=== PATIENT | male | born 1965 | race Caucasian/White ===

== ENCOUNTER 2018-02-08 02:09 | Emergency (ER) | payer OTHER ==
[2018-02-08 02:17] VITALS: TEMP 98.1
--- NOTE | 2018-02-08 02:22 | ED ---
General Adult HPI - General Chief complaint: Recheck/Abnormal Lab/Rx Stated complaint: Weakness Time Seen by Provider: 02/08/18 02:19 Source: patient, EMS Mode of arrival: EMS Limitations: no limitations - History of Present Illness Initial comments: Kush Sol is a 52-year-old male with a past medical history most significant for polycystic kidney disease for which she has been on hemodialysis for a little over a year and a half. Patient reports that he recently moved to this area and has started dialysis at a new dialysis center on the of this month. Patient reports that after each of his dialysis sessions he has felt very weak, he states that after dialysis on of last week he became very weak and his took him to an outside hospital where he was noted to be profoundly hypokalemic with a potassium of only 2.2. He was placed in their observation unit and given IV potassium throughout the night. He was evaluated by a stonework supervisor who he was told conferred with his stonework supervisor Dr. Michaud and the patient was visibly discharged home. Patient reports that he was in his usual state of health prior to dialysis today. He is feeling quite well, he drove himself to dialysis. He reports he spoke with his stonework supervisor at dialysis. She reports that immediately after dialysis he felt much weaker and quite unwell, he had some reservations about driving home due to his generalized weakness but was able to drive home and rest. He woke during the night tonight to get a drink of water and reports that he felt so weak that he had to sit down on his couch. His daughter came to check on him and he advised her that he felt too weak to walk back to the bedroom at which time EMS was contacted for transport to the hospital. The patient denies any chest pain, palpitations, shortness of breath. He reports a generalized tingling and weakness throughout his body. The patient reports that for the past one year he has been doing dialysis in [place] where he was living. He states that he never had any complications with dialysis, never had to be evaluated in the hospital. He does note that in [place] they used much slower flow rates during dialysis and he thinks that that may have contributed to him doing better. - Related Data Allergies Allergy/AdvReac Type Severity Reaction Status Date / Time No Known Allergies Allergy Verified 02/08/18 02:17 Review of Systems ROS Statement: Those systems with pertinent positive or pertinent negative responses have been documented in the HPI. ROS Other: All systems not noted in ROS Statement are negative. Past Medical History Past Medical History: Renal Disease History of Any Multi-Drug Resistant Organisms: None Reported Additional Past Surgical History / Comment(s): AV fistula left arm. bilateral shoulders. right heel. lasik eye surgery. Past Psychological History: No Psychological Hx Reported Smoking Status: Former smoker Past Alcohol Use History: Rare Past Drug Use History: Marijuana General Exam Limitations: no limitations General appearance: alert, in no apparent distress Head exam: Present: atraumatic, normocephalic Eye exam: Present: normal appearance, PERRL ENT exam: Present: normal exam Neck exam: Present: normal inspection Respiratory exam: Present: normal lung sounds bilaterally. Absent: respiratory distress Cardiovascular Exam: Present: regular rate, normal rhythm, other (Dialysis access in left forearm) GI/Abdominal exam: Present: soft. Absent: distended Rectal exam: Present: deferred Extremities exam: Present: full ROM Neurological exam: Present: alert, oriented X3 Psychiatric exam: Present: normal affect, normal mood Skin exam: Present: warm, dry, pallor Course Vital Signs 02/08/18 02/08/18 02/08/18 02:13 03:50 06:51 Temperature 98.1 F Pulse Rate 77 73 60 Respiratory 20 20 16 Rate Blood Pressure 143/73 126/70 134/81 O2 Sat by Pulse 98 98 Oximetry - Reevaluation(s) Reevaluation #1: The patient care was discussed with the patients stonework supervisor Dr. Lazo who agrees with plan to replace potassium with IV and PO potassium - recommends no Calcium at this time. The patient is updated on plan 02/08/18 04:14 EKG Findings - EKG Comments: EKG Findings:: EKG obtained at 2:16 AM, rate is 75, rhythm sinus, there is normal axis, normal intervals, WI 204, QRS 92, QTc 475, there no acute ST elevations or depressions. There is no acute T-wave abnormalities indicative of severe hypo-or hyperkalemia. Medical Decision Making - Medical Decision Making The patient was seen and evaluated, history was obtained from the patient Patient attending dialysis at a new dialysis Center. On 2 events has been noted to have hypokalemia associated with generalized weakness. Feeling generalized weakness and tingling to his body today after dialysis. EKG normal sinus rhythm with no acute ST elevations or depressions. Labs were ordered Labs reveal also abnormalities no significant for hypokalemia with potassium of 3.0, hypocalcemia with an ionized calcium Patient's stonework supervisor Dr. Lazo was paged who recommends IV potassium replacement hold calcium replacement. He states he will reevaluate the patient' s electrolytes a dialysis tomorrow. Patient received 30 mEq of IV potassium with IV fluid. He reported feeling much better after infusion. All questions pertaining care were answered best my ability, I advised the patient to discuss in detail his complaints with his stonework supervisor and return to the ER if he has any further complaints. - Lab Data Result diagrams: 02/08/18 02:24 02/08/18 02:24 Lab Results 02/08/18 02/08/18 02/08/18 Range/Units 02:24 02:24 02:45 WBC 3.9 (3.8-10.6) k/uL RBC 3.01 L (4.30-5.90) m/uL Hgb 9.9 L (13.0-17.5) gm/dL Hct 28.2 L (39.0-53.0) % MCV 93.7 (80.0-100.0) fL MCH 33.0 (25.0-35.0) pg MCHC 35.2 (31.0-37.0) g/dL RDW 13.2 (11.5-15.5) % Plt Count 139 L (150-450) k/uL Neutrophils % 71 % Lymphocytes % 14 % Monocytes % 8 % Eosinophils % 4 % Basophils % 0 % Neutrophils # 2.8 (1.3-7.7) k/uL Lymphocytes # 0.6 L (1.0-4.8) k/uL Monocytes # 0.3 (0-1.0) k/uL Eosinophils # 0.2 (0-0.7) k/uL Basophils # 0.0 (0-0.2) k/uL Sodium 135 L (137-145) mmol/L Potassium 3.0 L* (3.5-5.1) mmol/L Chloride 96 L (98-107) mmol/L Carbon Dioxide 27 (22-30) mmol/L Anion Gap 12 mmol/L BUN 32 H (9-20) mg/dL Creatinine 6.49 H* (0.66-1.25) mg/dL Est GFR (CKD-EPI)AfAm 10 (>60 ml/min/1.73 sqM) Est GFR (CKD-EPI)NonAf 9 (>60 ml/min/1.73 sqM) Glucose 108 H (74-99) mg/dL Calcium 8.5 (8.4-10.2) mg/dL Ionized Calcium Edwin 4.3 L (4.5-5.3) mg/dL Magnesium 1.7 (1.6-2.3) mg/dL Total Bilirubin 0.3 (0.2-1.3) mg/dL AST 22 (17-59) U/L ALT 28 (21-72) U/L Alkaline Phosphatase 53 (38-126) U/L Total Protein 5.9 L (6.3-8.2) g/dL Albumin 3.8 (3.5-5.0) g/dL Urine Color Colorless Urine Appearance Clear (Clear) Urine pH 8.5 H (5.0-8.0) Ur Specific [place] 1.002 (1.001-1.035) Urine Protein 1+ H (Negative) Urine Glucose (UA) 1+ H (Negative) Urine Ketones Negative (Negative) Urine Blood Small H (Negative) Urine Nitrite Negative (Negative) Urine Bilirubin Negative (Negative) Urine Urobilinogen <2.0 (<2.0) mg/dL Ur Leukocyte Esterase Negative (Negative) Urine RBC <1 (0-5) /hpf Urine WBC 1 (0-5) /hpf Disposition Clinical Impression: Hypokalemia Disposition: HOME SELF-CARE Condition: Good Instructions: Hypokalemia (ED) Is patient prescribed a controlled substance at d/c from ED?: No Referrals: None,Stated [Primary Care Provider] - 1-2 days Time of Disposition: 06:52
[2018-02-08 02:55] LABS: Basophils % (A) 0 %; Eosinophils # (A) 0.2 k/uL (0-0.7); Eosinophils % (A) 4 %; HCT 28.2 % (39.0-53.0); HGB 9.9 gm/dL (13.0-17.5); Lymphocytes # (A) 0.6 k/uL (1.0-4.8); Lymphocytes % (A) 14 %; MCHC 35.2 g/dL (31.0-37.0); MCV 93.7 fL (80.0-100.0); Mean Platelet Volume 6.8; Monocytes # (A) 0.3 k/uL (0-1.0); Monocytes % (A) 8 %; Neutrophils # (A) 2.8 k/uL (1.3-7.7); Neutrophils % (A) 71 %; Platelet Count 139 k/uL (150-450); RBC 3.01 m/uL (4.30-5.90); RDW 13.2 % (11.5-15.5); WBC 3.9 k/uL (3.8-10.6)
[2018-02-08 02:58] LABS: Appearance,Urine Clear (Clear); Bilirubin,Urine Negative (Negative); Blood,Urine Small (Negative); Color,Urine Colorless; Glucose,Urine (UA) 1+ (Negative); Ketones,Urine Negative (Negative); Leukocyte Esterase,Urine Negative (Negative); Nitrite,Urine Negative (Negative); PH, Urine 8.5 (5.0-8.0); Protein,Urine 1+ (Negative); RBC,Urine <1 /hpf (0-5); Specific Gravity,Urine 1.002 (1.001-1.035); Urobilinogen,Urine <2.0 mg/dL (<2.0); WBC,Urine 1 /hpf (0-5)
[2018-02-08 03:01] LABS: Ionized Calcium 4.3 mg/dL (4.5-5.3)
[2018-02-08 03:12] LABS: Albumin 3.8 g/dL (3.5-5.0); Calcium 8.5 mg/dL (8.4-10.2); Magnesium 1.7 mg/dL (1.6-2.3); Total Bilirubin 0.3 mg/dL (0.2-1.3); Total Protein 5.9 g/dL (6.3-8.2)
[2018-02-08] MEDS ORDERED: SODIUM CHLORIDE 0.9% 1,000 ML IV SCH (03:30)
[2018-02-08] MEDS: POTASSIUM CHLORIDE 10 MEQ in WATER FOR INJECTION 1 100ML.BAG IVPB SCH ×3 (03:46→05:49)
[2018-02-08 06:52] VITALS: BP 134/81; PULSE 60; RESP 16
== END 2018-02-08 06:58 | disposition home or self-care (01) ==
LOC: EC 02:09
DX: E87.6 Hypokalemia (principal); Z87.891 Personal history of nicotine dependence; Z99.2 Dependence on renal dialysis
CPT/HCPCS: 36415; 93005; 80053; 82330; 83735; 85025; 81001; 99285; 96365; 96366 ×2; J3480

== ENCOUNTER 2020-05-28 08:25 | Day surgery (SDC) | payer OTHER ==
[2020-05-14 15:44] VITALS: BMI 29.0
[~2020-05-28 08:25] MED LIST: LACTATED RINGERS 1,000 ML IV SCH
[2020-05-28 09:31] VITALS: TEMP 97.4
[2020-05-28] MEDS ORDERED: SODIUM CHLORIDE 0.9% 500 ML 500 ML IV ONE (09:47)
[2020-05-28] MEDS ORDERED: PROPOFOL 10 MG/ML 20 ML VIAL IV ONE (10:27)
[2020-05-28 11:22] VITALS: RESP 16
[2020-05-28 11:33] VITALS: BP 110/70; PULSE 72
--- NOTE | 2020-05-28 11:51 | P.PCN ---
Date of Procedure: 05/28/20 Description of Procedure: Brief history: Patient is a pleasant 54-year-old male presenting for outpatient EGD and colonoscopy for evaluation of GERD and and personal history of colon polyps. Denies any change in bowel habits or blood per rectum. No family history of colon cancer. He reports prior colonoscopy 5 years ago with polypectomy. He was previously taking Nexium in the remote past. He does have issues with bringing up phlegm which she is concerned is secondary to reflux. Procedure performed: Esophagogastroduodenoscopy with biopsy Colonoscopy Estimated blood loss: Minimal. Preoperative diagnosis: GERD, history of colon polyps, last colonoscopy 5 years ago Anesthesia: [facility] Procedure: After informed consent was obtained from the patient was brought into the endoscopy unit and IV sedation was administered by anesthesia under continuous monitoring. Initially upper endoscopy was done. The Olympus GF 190 video endoscope was inserted into the mouth and esophagus intubated without any difficulty and was gradually advanced into the stomach and duodenum and carefully examined. The bulb and second part of the duodenum appeared normal, with biopsies taken to rule out celiac sprue. The scope was then withdrawn into the stomach adequately insufflated with air and upon careful examination the antrum and body, cardia and fundus appeared normal, except for some mild punctate erythema in the antrum and body suggestive of mild gastritis with biopsies taken. A diminutive polyp in the gastric body measuring 2 mm removed with cold forcep likely representing fundic gland polyp. The scope was then withdrawn into the esophagus. The GE junction was located at 40 cm to the incisors and biopsy. It appeared regular with no erythema erosions or ulcerations. Rest of the esophagus appeared normal. Patient tolerated the procedure well. At this time the patient continued to remain sedation. Initial digital rectal examination was normal. Olympus CF 190 video colonoscope was then inserted into the rectum and gradually advanced to the cecum without any difficulty. Careful examination was performed as the scope was gradually being withdrawn. The prep was excellent. The cecum, ascending colon, transverse colon, descending colon, sigmoid colon and rectum appeared normal. A few small diverticula noted in the sigmoid colon. Retroflexion was performed in the rectum and no lesions were noted, low-grade internal hemorrhoids. Patient tolerated the procedure well. Impression: 1. Mild gastritis. Diminutive gastric polyp likely fundic gland polyp. Biopsies of the duodenum, antrum body, GE junction and gastric polyp. 2. Mild sigmoid diverticulosis. Otherwise normal-appearing colon from rectum to cecum. Recommendations: Findings of this examination were discussed with the patient as well as his . Okay to resume diet. Okay to resume medications. Await pathology from biopsies. Recommend a trial of OTC Nexium for 14 days. Recommendation is for repeat colonoscopy in 10 years for screening for malignant neoplasm of the colon.
== END 2020-05-28 11:50 | disposition home or self-care (01) ==
LOC: ORWHC2ENDO 08:25
PROVIDERS: ATTEND Internal Medicine
DX: Z12.11 Encounter for screening for malignant neoplasm of colon (principal); K29.50 Unspecified chronic gastritis without bleeding; K31.7 Polyp of stomach and duodenum; K20.0 Eosinophilic esophagitis; K21.9 Gastro-esophageal reflux disease without esophagitis; K57.30 Diverticulosis of large intestine without perforation or abscess without bleeding; K64.8 Other hemorrhoids; Z86.010 Personal history of colon polyps; I12.0 Hypertensive chronic kidney disease with stage 5 chronic kidney disease or end stage renal disease; N18.6 End stage renal disease; Z87.891 Personal history of nicotine dependence; Z79.890 Hormone replacement therapy; Z79.899 Other long term (current) drug therapy; Z98.890 Other specified postprocedural states
CPT/HCPCS: 43239; 88305; G0105; J2704; 45378

== ENCOUNTER 2021-02-10 07:10 | Inpatient (IN) | payer OTHER, MEDICARE ==
[2021-02-10 07:54] LABS: Basophils % (A) 0 %; Eosinophils # (A) 0.9 k/uL (0-0.7); Eosinophils % (A) 16 %; HCT 29.2 % (39.0-53.0); HGB 10.6 gm/dL (13.0-17.5); Lymphocytes # (A) 0.6 k/uL (1.0-4.8); Lymphocytes % (A) 11 %; MCH 35.5 pg (25.0-35.0); MCHC 36.4 g/dL (31.0-37.0); MCV 97.4 fL (80.0-100.0); Mean Platelet Volume 7.4; Monocytes # (A) 0.3 k/uL (0-1.0); Monocytes % (A) 6 %; Neutrophils # (A) 3.9 k/uL (1.3-7.7); Neutrophils % (A) 66 %; Platelet Count 133 k/uL (150-450); RDW 12.5 % (11.5-15.5); WBC 5.9 k/uL (3.8-10.6)
[2021-02-10 08:01] LABS: INR 0.9 (<1.2); Prothrombin Time 10.1 sec (9.0-12.0)
[2021-02-10 08:08] LABS: Albumin 3.6 g/dL (3.5-5.0); Calcium 8.6 mg/dL (8.4-10.2); Magnesium 1.4 mg/dL (1.6-2.3); Phosphorus 4.7 mg/dL (2.5-4.5); Potassium 3.9 mmol/L (3.5-5.1); Total Bilirubin 0.4 mg/dL (0.2-1.3); Total Protein 5.8 g/dL (6.3-8.2)
--- NOTE | 2021-02-10 08:15 | XR ---
EXAMINATION TYPE: XR chest 2V DATE OF EXAM: 02/10/2021 COMPARISON: NONE HISTORY: Shortness of breath TECHNIQUE: Frontal and lateral views of the chest are obtained. FINDINGS: Scattered senescent parenchymal changes noted. Hyperinflation compatible with COPD. No evidence for infiltrate. No evidence for atelectasis. Heart size is stable. Mediastinal structures are stable and grossly unremarkable. No evidence for hilar prominence. Degenerative changes dorsal spine. IMPRESSION: 1. No evidence for acute pulmonary disease.
[2021-02-10 08:32] LABS: Appearance,Urine Clear (Clear); Bilirubin,Urine Negative (Negative); Blood,Urine Small (Negative); Color,Urine Colorless; Glucose,Urine (UA) 1+ (Negative); Ketones,Urine Negative (Negative); Leukocyte Esterase,Urine Negative (Negative); Nitrite,Urine Negative (Negative); Protein,Urine 1+ (Negative); Specific Gravity,Urine 1.003 (1.001-1.035); Urobilinogen,Urine <2.0 mg/dL (<2.0); WBC,Urine 1 /hpf (0-5)
--- NOTE | 2021-02-10 08:43 | ED ---
Weakness HPI - General Chief complaint: Weakness Stated complaint: syncope, weakness Time Seen by Provider: 02/10/21 07:24 Source: patient, RN notes reviewed Mode of arrival: wheelchair Limitations: no limitations - History of Present Illness Initial comments: This is a 55-year-old male presents emergency Department chief complaint of jaundice weakness, not feeling well, dizziness. Patient states that symptoms symptoms yesterday while doing outside work. He does not initially was just from the he states symptoms have improved. He did have some nausea vomiting this morning. Patient has known renal disease in which he does peritoneal dialysis. Patient states he did do exchanges morning. Patient denies any chest pain shortness breath leg swelling or any leg pain. Patient states she's had issues like this in the past states is like lights were off. Denies fevers chills - Related Data Home Medications Medication Instructions Recorded Confirmed B Complex W-C No.20/Folic Acid 1 mg PO DAILY 05/14/20 02/10/21 [Renal Caps Softgel] Cinacalcet HCl 30 mg PO DAILY 05/14/20 02/10/21 Potassium Chloride [K-Tab ER] 20 meq PO DAILY 05/14/20 02/10/21 lisinopriL [Zestril] 5 mg PO DAILY 05/14/20 02/10/21 Cholecalciferol [Vitamin D3 (25 25 mcg PO DAILY 02/10/21 02/10/21 Mcg = 1000 Iu)] Gentamicin Sulfate [Gentamicin 1 applic TOPICAL DAILY 02/10/21 02/10/21 Sulfate 0.1% Oint.] Levofloxacin [Levaquin] 250 mg PO DAILY 02/10/21 02/10/21 Magnesium Glycinate 100mg 200 mg PO BID PRN 02/10/21 02/10/21 Velphoro 500mg 1,000 mg PO AC-TID 02/10/21 02/10/21 Velphoro 500mg 500 mg PO BID PRN 02/10/21 02/10/21 Allergies Allergy/AdvReac Type Severity Reaction Status Date / Time No Known Allergies Allergy Verified 02/10/21 07:51 Review of Systems ROS Statement: Those systems with pertinent positive or pertinent negative responses have been documented in the HPI. ROS Other: All systems not noted in ROS Statement are negative. Past Medical History Past Medical History: Renal Disease, Thyroid Disorder Additional Past Medical History / Comment(s): Dialysis, interstitial lung disease History of Any Multi-Drug Resistant Organisms: None Reported Past Surgical History: Orthopedic Surgery Additional Past Surgical History / Comment(s): AV fistula left arm. bilateral shoulders. right heel. lasik eye surgery. dialysis port abdomen, COLONOSCOPY Past Anesthesia/Blood Transfusion Reactions: No Reported Reaction Past Psychological History: No Psychological Hx Reported Smoking Status: Former smoker Past Alcohol Use History: None Reported Past Drug Use History: None Reported - Past Family History Father Family Medical History: Cancer General Exam Limitations: no limitations General appearance: alert, in no apparent distress Head exam: Present: atraumatic, normocephalic, normal inspection Eye exam: Present: normal appearance, PERRL, EOMI. Absent: scleral icterus, conjunctival injection, periorbital swelling Respiratory exam: Present: normal lung sounds bilaterally. Absent: respiratory distress, wheezes, rales, rhonchi, stridor Cardiovascular Exam: Present: regular rate, normal rhythm, normal heart sounds. Absent: systolic murmur, diastolic murmur, rubs, gallop, clicks GI/Abdominal exam: Present: soft, normal bowel sounds. Absent: distended, tenderness, guarding, rebound, rigid Back exam: Absent: CVA tenderness (R), CVA tenderness (L) Neurological exam: Present: alert Skin exam: Present: warm, dry, intact, normal color. Absent: rash Course Vital Signs 02/10/21 02/10/21 02/10/21 07:16 07:52 08:48 Temperature 98.5 F 98.7 F Pulse Rate 90 80 78 Respiratory 16 18 18 Rate Blood Pressure 164/83 139/82 123/85 O2 Sat by Pulse 100 99 100 Oximetry Medical Decision Making - Medical Decision Making 55-year-old presented for dizziness, near syncope. Patient found to have hyponatremia with sodium 126, creatinine 10.57 known renal disease on dialysis. Patient be admitted for near syncopal episode, hyponatremia for nephrology evaluation - Lab Data Result diagrams: 02/10/21 07:40 02/10/21 07:40 Lab Results 02/10/21 02/10/21 02/10/21 Range/Units 07:40 07:40 07:40 WBC 5.9 (3.8-10.6) k/uL RBC 3.00 L (4.30-5.90) m/uL Hgb 10.6 L (13.0-17.5) gm/dL Hct 29.2 L (39.0-53.0) % MCV 97.4 (80.0-100.0) fL MCH 35.5 H (25.0-35.0) pg MCHC 36.4 (31.0-37.0) g/dL RDW 12.5 (11.5-15.5) % Plt Count 133 L (150-450) k/uL MPV 7.4 Neutrophils % 66 % Lymphocytes % 11 % Monocytes % 6 % Eosinophils % 16 % Basophils % 0 % Neutrophils # 3.9 (1.3-7.7) k/uL Lymphocytes # 0.6 L (1.0-4.8) k/uL Monocytes # 0.3 (0-1.0) k/uL Eosinophils # 0.9 H (0-0.7) k/uL Basophils # 0.0 (0-0.2) k/uL PT 10.1 (9.0-12.0) sec INR 0.9 (<1.2) APTT 24.0 (22.0-30.0) sec Sodium (137-145) mmol/L Potassium (3.5-5.1) mmol/L Chloride (98-107) mmol/L Carbon Dioxide (22-30) mmol/L Anion Gap mmol/L BUN (9-20) mg/dL Creatinine (0.66-1.25) mg/dL Est GFR (CKD-EPI)AfAm (>60 ml/min/1.73 sqM) Est GFR (CKD-EPI)NonAf (>60 ml/min/1.73 sqM) Glucose (74-99) mg/dL Plasma Lactic Acid [place] (0.7-2.0) mmol/L Calcium (8.4-10.2) mg/dL Phosphorus (2.5-4.5) mg/dL Magnesium (1.6-2.3) mg/dL Total Bilirubin (0.2-1.3) mg/dL AST (17-59) U/L ALT (4-49) U/L Alkaline Phosphatase (38-126) U/L Creatine Kinase (55-170) U/L Troponin I (0.000-0.034) ng/mL Total Protein (6.3-8.2) g/dL Albumin (3.5-5.0) g/dL Urine Color Colorless Urine Appearance Clear (Clear) Urine pH 8.0 (5.0-8.0) Ur Specific [place] 1.003 (1.001-1.035) Urine Protein 1+ H (Negative) Urine Glucose (UA) 1+ H (Negative) Urine Ketones Negative (Negative) Urine Blood Small H (Negative) Urine Nitrite Negative (Negative) Urine Bilirubin Negative (Negative) Urine Urobilinogen <2.0 (<2.0) mg/dL Ur Leukocyte Esterase Negative (Negative) Urine WBC 1 (0-5) /hpf 02/10/21 02/10/21 02/10/21 Range/Units 07:40 07:40 07:40 WBC (3.8-10.6) k/uL RBC (4.30-5.90) m/uL Hgb (13.0-17.5) gm/dL Hct (39.0-53.0) % MCV (80.0-100.0) fL MCH (25.0-35.0) pg MCHC (31.0-37.0) g/dL RDW (11.5-15.5) % Plt Count (150-450) k/uL MPV Neutrophils % % Lymphocytes % % Monocytes % % Eosinophils % % Basophils % % Neutrophils # (1.3-7.7) k/uL Lymphocytes # (1.0-4.8) k/uL Monocytes # (0-1.0) k/uL Eosinophils # (0-0.7) k/uL Basophils # (0-0.2) k/uL PT (9.0-12.0) sec INR (<1.2) APTT (22.0-30.0) sec Sodium 126 L (137-145) mmol/L Potassium 3.9 (3.5-5.1) mmol/L Chloride 91 L (98-107) mmol/L Carbon Dioxide 24 (22-30) mmol/L Anion Gap 11 mmol/L BUN 49 H (9-20) mg/dL Creatinine 10.57 H* (0.66-1.25) mg/dL Est GFR (CKD-EPI)AfAm 6 (>60 ml/min/1.73 sqM) Est GFR (CKD-EPI)NonAf 5 (>60 ml/min/1.73 sqM) Glucose 103 H (74-99) mg/dL Plasma Lactic Acid [place] 1.4 (0.7-2.0) mmol/L Calcium 8.6 (8.4-10.2) mg/dL Phosphorus 4.7 H (2.5-4.5) mg/dL Magnesium 1.4 L (1.6-2.3) mg/dL Total Bilirubin 0.4 (0.2-1.3) mg/dL AST 44 (17-59) U/L ALT 32 (4-49) U/L Alkaline Phosphatase 128 H (38-126) U/L Creatine Kinase 307 H (55-170) U/L Troponin I <0.012 (0.000-0.034) ng/mL Total Protein 5.8 L (6.3-8.2) g/dL Albumin 3.6 (3.5-5.0) g/dL Urine Color Urine Appearance (Clear) Urine pH (5.0-8.0) Ur Specific [place] (1.001-1.035) Urine Protein (Negative) Urine Glucose (UA) (Negative) Urine Ketones (Negative) Urine Blood (Negative) Urine Nitrite (Negative) Urine Bilirubin (Negative) Urine Urobilinogen (<2.0) mg/dL Ur Leukocyte Esterase (Negative) Urine WBC (0-5) /hpf Disposition Clinical Impression: Hyponatremia, Near syncope, Renal failure Disposition: ADMITTED IP TO THIS HOSP Condition: Fair Referrals: Shayla Fonseca DO [Primary Care Provider] - 1-2 days
[2021-02-10] MEDS ORDERED: NALOXONE 0.4 MG/ML 1 ML VIAL IV PRN (09:30)
[2021-02-10] MEDS ORDERED: ACETAMINOPHEN TAB 325 MG TAB PO PRN (09:30)
[2021-02-10] MEDS ORDERED: MAGNESIUM GLYCINATE PO PRN (09:41)
[2021-02-10] MEDS: SODIUM CHLORIDE 0.9% 1,000 ML IV SCH (10:18)
[2021-02-10] MEDS ORDERED: DIALYSIS (PERIT 1.5%) 2,500 ML 37.5 G/2,500 ML BAG INTRAPERIT SCH (13:45)
[2021-02-10] MEDS ORDERED: Magnesium Replacement Protocol 1 EACH MISC MISCELLANE PRN (15:43)
--- NOTE | 2021-02-10 21:01 | P.HPIM ---
History of Present Illness This is a pleasant 55 years old male with past medical history of end-stage renal disease on peritoneal dialysis for times a day, hypothyroidism. Presents with generalized weakness and feeling Z for the last 2 days. 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 He reports similar symptoms last time his sodium was low also. He did already peritoneal dialysis twice earlier today. Scrubs his dizziness like presyncope but he never passed out. No spinning rooms also he is complaining of from the to diarrhea. But he attributed it to the antibiotics he was using for the last 2 weeks for possible infection around the peritoneal dialysis tube, after first week his antibiotics were switched to Levaquin which she was been taken to now. He denies smoking, alcohol or illicit drugs Review of Systems CONSTITUTIONAL: No fever, no malaise, no fatigue. HEENT: No recent visual problems or hearing problems. Denied any sore throat. CARDIOVASCULAR: No orthopnea, PND, no palpitations, no syncope. PULMONARY: No shortness of breath, no cough, no hemoptysis. GASTROINTESTINAL: no abdominal pain. Normoactive bowel sounds. NEUROLOGICAL: No headaches, no weakness, no numbness. HEMATOLOGICAL: Denies any bleeding or petechiae. GENITOURINARY: Denies any burning micturition, frequency, or urgency. MUSCULOSKELETAL/RHEUMATOLOGICAL: Denies any joint pain, swelling, or any muscle pain. ENDOCRINE: Denies any polyuria or polydipsia. Past Medical History Past Medical History: Renal Disease, Thyroid Disorder Additional Past Medical History / Comment(s): Dialysis, interstitial lung disease History of Any Multi-Drug Resistant Organisms: None Reported Past Surgical History: Orthopedic Surgery Additional Past Surgical History / Comment(s): AV fistula left arm. bilateral shoulders. right heel. lasik eye surgery. dialysis port abdomen, COLONOSCOPY Past Anesthesia/Blood Transfusion Reactions: No Reported Reaction Past Psychological History: No Psychological Hx Reported Smoking Status: Former smoker Past Alcohol Use History: None Reported Past Drug Use History: None Reported - Past Family History Father Family Medical History: Cancer Medications and Allergies Home Medications Medication Instructions Recorded Confirmed Type B Complex W-C No.20/Folic Acid 1 mg PO DAILY 05/14/20 02/10/21 History [Renal Caps Softgel] Cinacalcet HCl 30 mg PO DAILY 05/14/20 02/10/21 History Potassium Chloride [K-Tab ER] 20 meq PO DAILY 05/14/20 02/10/21 History lisinopriL [Zestril] 5 mg PO DAILY 05/14/20 02/10/21 History Cholecalciferol [Vitamin D3 (25 25 mcg PO DAILY 02/10/21 02/10/21 History Mcg = 1000 Iu)] Gentamicin Sulfate [Gentamicin 1 applic TOPICAL DAILY 02/10/21 02/10/21 History Sulfate 0.1% Oint.] Levofloxacin [Levaquin] 250 mg PO DAILY 02/10/21 02/10/21 History Magnesium Glycinate 100mg 200 mg PO BID PRN 02/10/21 02/10/21 History Velphoro 500mg 1,000 mg PO AC-TID 02/10/21 02/10/21 History Velphoro 500mg 500 mg PO BID PRN 02/10/21 02/10/21 History Allergies Allergy/AdvReac Type Severity Reaction Status Date / Time No Known Allergies Allergy Verified 02/10/21 07:51 Physical Exam Vitals: Vital Signs Temp Pulse Resp BP Pulse Ox 02/10/21 18:36 81 18 123/87 100 02/10/21 16:28 79 18 123/77 99 02/10/21 15:20 98.4 F 79 18 120/78 100 02/10/21 15:00 98.4 F 80 18 117/71 98 02/10/21 13:40 96 18 129/91 100 02/10/21 10:18 74 18 116/76 100 02/10/21 08:48 78 18 123/85 100 02/10/21 07:52 98.7 F 80 18 139/82 99 02/10/21 07:16 98.5 F 90 16 164/83 100 Intake and Output 02/10/21 02/10/21 02/10/21 06:59 14:59 22:59 Other: Weight 83.915 kg GENERAL: The patient is alert and oriented x3, not in any acute distress. Well developed, well nourished. HEENT: Pupils are round and equally reacting to light. EOMI. No scleral icterus. No conjunctival pallor. Normocephalic, atraumatic. No pharyngeal erythema. No thyromegaly. CARDIOVASCULAR: S1 and S2 present. No murmurs, rubs, or gallops. PULMONARY: Chest is clear to auscultation, no wheezing or crackles. -ABDOMEN: Soft, nontender, nondistended, normoactive bowel sounds. No palpable organomegaly. Peritoneal dialysis catheter in the right lower abdomen is in pl vivek with no surrounding cellulitis MUSCULOSKELETAL: No joint swelling or deformity. EXTREMITIES: No cyanosis, clubbing, or pedal edema. NEUROLOGICAL: Gross neurological examination did not reveal any focal deficits. SKIN: No rashes. No petechiae Results CBC & Chem 7: 02/10/21 07:40 02/10/21 07:40 Labs: Abnormal Lab Results - Last 24 Hours (Table) 02/10/21 02/10/21 02/10/21 Range/Units 07:40 07:40 07:40 RBC 3.00 L (4.30-5.90) m/uL Hgb 10.6 L (13.0-17.5) gm/dL Hct 29.2 L (39.0-53.0) % MCH 35.5 H (25.0-35.0) pg Plt Count 133 L (150-450) k/uL Lymphocytes # 0.6 L (1.0-4.8) k/uL Eosinophils # 0.9 H (0-0.7) k/uL Sodium 126 L (137-145) mmol/L Chloride 91 L (98-107) mmol/L BUN 49 H (9-20) mg/dL Creatinine 10.57 H* (0.66-1.25) mg/dL Glucose 103 H (74-99) mg/dL Phosphorus 4.7 H (2.5-4.5) mg/dL Magnesium 1.4 L (1.6-2.3) mg/dL Alkaline Phosphatase 128 H (38-126) U/L Creatine Kinase 307 H (55-170) U/L Total Protein 5.8 L (6.3-8.2) g/dL Urine Protein 1+ H (Negative) Urine Glucose (UA) 1+ H (Negative) Urine Blood Small H (Negative) Assessment and Plan Assessment: Dizziness and presyncope Mild to moderate hypovolemic hyponatremia Gastroenteritis with mild diarrhea and vomiting Recently treated for abdominal wall cellulitis around his dialysis tube, resolved End-stage renal disease on peritoneal dialysis Plan: This is a pleasant 55 years old male who presents with presyncope with hyponatremia, most likely secondary to dehydration from working in hot weather and secondary to gastroenteritis. 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 diff Labs and medication were reviewed.. Continue same treatment. Continue with symptomatic treatment. Resume home medication. Monitor lytes and vitals. DVT and GI prophylaxis. Further recommendations as per clinical course of the patient DVT prophylaxis: Subcutaneous heparin GI Prophylaxis: Pepcid Prognosis is guarded
[2021-02-10] MEDS: HEPARIN SODIUM,PORCINE/PF 5,000 UNIT/0.5 ML SYRINGE SQ SCH (21:50)
[2021-02-10] MEDS: FAMOTIDINE 20 MG/2 ML VIAL IV SCH (21:51)
[2021-02-10 21:58] LABS: African American GFR (CKD) 5 (>60 ml/min/1.73 sqM); Anion Gap 9 mmol/L; Blood Urea Nitrogen 51 mg/dL (9-20); Calcium 8.2 mg/dL (8.4-10.2); Carbon Dioxide 25 mmol/L (22-30); Chloride 94 mmol/L (98-107); Glucose 133 mg/dL (74-99); Non-African American GFR(CKD) 5 (>60 ml/min/1.73 sqM); Potassium 3.9 mmol/L (3.5-5.1); Sodium 128 mmol/L (137-145)
[2021-02-10] MEDS: DIALYSIS (PERIT 1.5%) 2,500 ML 37.5 G/2,500 ML BAG INTRAPERIT SCH (22:04)
[2021-02-11] MEDS: DIALYSIS (PERIT 1.5%) 2,500 ML 37.5 G/2,500 ML BAG INTRAPERIT SCH ×3 (03:48→15:00)
[2021-02-11] MEDS ORDERED: lisinopriL 5 MG TAB PO SCH (09:00)
[2021-02-11] MEDS ORDERED: POTASSIUM CHLORIDE ER 20 MEQ TAB.ER PO SCH (09:00)
[2021-02-11] MEDS ORDERED: FOLIC ACID-VIT B COMPLEX-VIT C 1 CAP PO SCH (09:00)
[2021-02-11] MEDS ORDERED: CINACALCET 30 MG TAB PO SCH (09:00)
[2021-02-11] MEDS ORDERED: GENTAMICIN 0.1% CREAM 15 GM TUBE TOPICAL SCH (09:00)
[2021-02-11] MEDS ORDERED: CHOLECALCIFEROL 25 MCG (1000 IU) TABLET PO SCH (09:00)
[2021-02-11 09:39] VITALS: RESP 18
--- NOTE | 2021-02-11 09:41 | ECHOF ---
Referral Reason:Rule out heart disease MEASUREMENTS -------- HEIGHT: 170.2 cm WEIGHT: 83.9 kg BP: 114/73 RVIDd: 3.5 cm (< 3.3) IVSd: 1.2 cm (0.6 - 1.1) LVIDd: 5.3 cm (3.9 - 5.3) LVPWd: 1.2 cm (0.6 - 1.1) IVSs: 1.7 cm LVIDs: 3.2 cm LVPWs: 1.8 cm LAESV Index (A-L): 34.04 ml/m Ao Diam: 3.0 cm (2.0 - 3.7) AV Cusp: 2.5 cm (1.5 - 2.6) LA Diam: 3.5 cm (2.7 - 3.8) MV EXCURSION: 19.027 mm (> 18.000) MV EF SLOPE: 73 mm/s (70 - 150) EPSS: 0.9 cm MV E Brayden: 0.93 m/s MV DecT: 149 ms MV A Brayden: 1.26 m/s MV E/A Ratio: 0.74 RAP: 5.00 mmHg RVSP: 34.45 mmHg FINDINGS -------- Sinus rhythm. This was a technically adequate study. The left ventricular size is normal. There is mild concentric left ventricular hypertrophy. Overa ll left ventricular systolic function is normal with, an EF between 55 - 60 %. The diastolic fillin g pattern is normal for the age of the patient 12.62. The right ventricle is mildly enlarged. LA is moderately dilated 34-39 ml/m2 The right atrial size is normal. Interatrial and interventricular septum intact. The aortic valve is trileaflet and appears structurally normal. There is no evidence of aortic regu rgitation. There is no evidence of aortic stenosis. [id number] mitral regurgitation is present. Mild tricuspid regurgitation present. There is borderline pulmonary artery hypertension. The righ t ventricular systolic pressure, as measured by Doppler, is 34.45mmHg. There is no pulmonic regurgitation present. The aortic root size is normal. IVC Not well visulized. There is no pericardial effusion. CONCLUSIONS -------- 1. The left ventricular size is normal. 2. There is mild concentric left ventricular hypertrophy. 3. Overall left ventricular systolic function is normal with, an EF between 55 - 60 %. 4. The diastolic filling pattern is normal for the age of the patient 12.62 5. LA is moderately dilated 34-39 ml/m2 6. Qpqa-de-yoaivmwr mitral regurgitation is present. 7. Mild tricuspid regurgitation present. 8. There is borderline pulmonary artery hypertension. 9. The right ventricular systolic pressure, as measured by Doppler, is 34.45mmHg. DIVER PUMPER: Noreen Lynn RDCS
--- NOTE | 2021-02-11 10:09 | P.CRDCN ---
History of Present Illness Consult date: 02/11/21 History of present illness: HISTORY OF PRESENT ILLNESS: This is a 55-year-old male with a past medical history significant for hypertension, chronic kidney disease with peritoneal dialysis, and occasional alcohol use. Patient does not follow with a law reporter We have been asked to see the patient in consultation for presyncope. Patient examined at the bedside. Patient states he does per to dialysis at home with 4 exchanges a day. Patient states he still urinates quite a bit so he has been instructed to only take off 300 mL during his peritoneal dialysis exchanges secondary to him still urinating. Patient states he was outside working in the heat and was sweating quite a bit. He states he had not drink any water at that time. 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 He states he then went inside and drink some water and Gatorade but his symptoms did not resolve. Patient then presented to the hospital for further evaluation. Patient states he thinks he "overdid it". Patient states this is the fourth time this has happened to him. Patient states his dizziness has resolved. He denies chest pain or pressure. He denies shortness of breath. Patient was found to be hyponatremic on admission with a sodium of 126. Repeat sodium yesterday 128. EKG reveals sinus mechanism with no signs of acute ischemia Chest xray no evidence of acute pulmonary disease Laboratory data: WBC 5.9. Hemoglobin 10.6. Platelet count 133. Sodium 128. Potassium 3.9. BUN 51. Creatinine 10.82. Lactic acid 1.4. Current home cardiac medications include lisinopril 5 mg daily Echocardiogram completed reveals ejection fraction 55-60%. Pcdy-bg-gcmnctaz mitral regurgitation. Mild tricuspid regurgitation. Borderline pulmonary artery hypertension. REVIEW OF SYSTEMS: At the time of my exam: CONSTITUTIONAL: Denies fever or chills. HEENT: Denies blurred vision, vision changes, or eye pain. Denies hemoptysis CARDIOVASCULAR: Denies chest pain. Denies orthopnea. Denies PND. Denies palpitations RESPIRATORY: Denies shortness of breath. GASTROINTESTINAL: Denies abdominal pain. Denies nausea or vomiting. HEMATOLOGIC: Denies bleeding disorders. GENITOURINARY: Denies any blood in urine. SKIN: Denies pruitis. Denies rash. PHYSICAL EXAM: VITAL SIGNS: Reviewed. GENERAL: Well-developed in no acute distress. HEENT: Head is normocephalic. Pupils are equal, round. Sclerae anicteric. Mucous membranes of the mouth are moist. Neck supple. No JVD or thyromegaly LUNGS: Respirations even and unlabored. Lungs essentially clear to auscultation bilaterally. HEART: Regular rate and rhythm. S1 and S2 heard. Systolic murmur noted. ABDOMEN: Soft. Nondistended. Nontender. PD catheter noted. EXTREMITIES: Normal range of motion. No clubbing or cyanosis. Peripheral pulses intact. No lower extremity edema NEUROLOGIC: Awake and alert. Oriented x 3. ASSESSMENT: Dizziness, r/o cardiac etiology Hypertension Chronic kidney disease with peritoneal dialysis Yxnc-qs-rgrbcgey mitral regurgitation PLAN: 2D echo obtained and reviewed Begin telemetry monitoring while in the hospital to assess for any maria m/tachy arrhythmias Patients symptoms likely related to dehydration and electrolyte imbalances Peritoneal dialysis per nephrology Further recommendations pending patient's course Nurse practitioner note has been reviewed by physician. Signing provider agrees with the documented findings, assessment, and plan of care. Past Medical History Past Medical History: Renal Disease, Thyroid Disorder Additional Past Medical History / Comment(s): Dialysis, interstitial lung disease History of Any Multi-Drug Resistant Organisms: None Reported Past Surgical History: Orthopedic Surgery Additional Past Surgical History / Comment(s): AV fistula left arm. bilateral shoulders. right heel. lasik eye surgery. dialysis port abdomen, COLONOSCOPY Past Anesthesia/Blood Transfusion Reactions: No Reported Reaction Past Psychological History: No Psychological Hx Reported Smoking Status: Former smoker Past Alcohol Use History: None Reported Past Drug Use History: None Reported - Past Family History Father Family Medical History: Cancer Medications and Allergies Home Medications Medication Instructions Recorded Confirmed Type B Complex W-C No.20/Folic Acid 1 mg PO DAILY 05/14/20 02/10/21 History [Renal Caps Softgel] Cinacalcet HCl 30 mg PO DAILY 05/14/20 02/10/21 History Potassium Chloride [K-Tab ER] 20 meq PO DAILY 05/14/20 02/10/21 History lisinopriL [Zestril] 5 mg PO DAILY 05/14/20 02/10/21 History Cholecalciferol [Vitamin D3 (25 25 mcg PO DAILY 02/10/21 02/10/21 History Mcg = 1000 Iu)] Gentamicin Sulfate [Gentamicin 1 applic TOPICAL DAILY 02/10/21 02/10/21 History Sulfate 0.1% Oint.] Levofloxacin [Levaquin] 250 mg PO DAILY 02/10/21 02/10/21 History Magnesium Glycinate 100mg 200 mg PO BID PRN 02/10/21 02/10/21 History Velphoro 500mg 1,000 mg PO AC-TID 02/10/21 02/10/21 History Velphoro 500mg 500 mg PO BID PRN 02/10/21 02/10/21 History Allergies Allergy/AdvReac Type Severity Reaction Status Date / Time No Known Allergies Allergy Verified 02/10/21 07:51 Physical Exam Vitals: Vital Signs Temp Pulse Pulse Pulse Pulse Resp BP 02/11/21 07:43 98.9 F 85 17 02/11/21 03:41 98.8 F 90 18 114/73 02/10/21 22:54 98.5 F 81 15 02/10/21 22:05 98.6 F 74 18 149/89 02/10/21 21:57 89 98 86 02/10/21 18:36 81 18 123/87 02/10/21 16:28 79 18 123/77 02/10/21 15:20 98.4 F 79 18 120/78 02/10/21 15:00 98.4 F 80 18 117/71 02/10/21 13:40 96 18 129/91 02/10/21 10:18 74 18 116/76 02/10/21 08:48 78 18 123/85 BP BP BP Pulse Ox 02/11/21 07:43 122/74 97 02/11/21 03:41 97 02/10/21 22:54 145/87 100 02/10/21 22:05 99 02/10/21 21:57 132/81 149/89 130/79 02/10/21 18:36 100 02/10/21 16:28 99 02/10/21 15:20 100 02/10/21 15:00 98 02/10/21 13:40 100 02/10/21 10:18 100 02/10/21 08:48 100 Intake and Output 02/10/21 02/11/21 02/11/21 22:59 06:59 14:59 Intake Total 450 Balance 450 Intake: Intake, IV Titration 450 Amount Sodium Chloride 0.9% 1, 450 000 ml @ 75 mls/hr IV . [id number] [facility] Rx#:[id number] Other: # Voids 1 Results 02/10/21 07:40 02/10/21 21:12 Comprehensive Metabolic Panel 02/10/21 Range/Units 21:12 Sodium 128 L (137-145) mmol/L Potassium 3.9 (3.5-5.1) mmol/L Chloride 94 L (98-107) mmol/L Carbon Dioxide 25 (22-30) mmol/L BUN 51 H (9-20) mg/dL Creatinine 10.82 H* (0.66-1.25) mg/dL Glucose 133 H (74-99) mg/dL Calcium 8.2 L (8.4-10.2) mg/dL Current Medications Generic Name Dose Route Start Last Admin Trade Name Freq PRN Reason Stop Dose Admin Acetaminophen 650 mg 02/10/21 09:30 Acetaminophen Tab 325 Mg Tab PO Q6HR PRN Mild Pain or Fever > 100.5 Cholecalciferol 25 mcg 02/11/21 09:00 Cholecalciferol 25 Mcg (1000 Iu) Tablet PO DAILY [facility] Cinacalcet 30 mg 02/11/21 09:00 Cinacalcet 30 Mg Tab PO DAILY [facility] Famotidine 20 mg 02/10/21 21:15 02/10/21 21:51 Famotidine 20 Mg/2 Ml Vial IV 20 mg Q12HR [facility] Administration Gentamicin Sulfate 1 applic 02/11/21 09:00 Gentamicin 0.1% Cream 15 Gm Tube TOPICAL DAILY [facility] Heparin Sodium (Porcine) 5,000 unit 02/10/21 21:15 02/10/21 21:50 Heparin Sodium,Porcine/Pf 5,000 Unit/0.5 Ml Syringe SQ 5,000 unit Q12HR [facility] Administration Sodium Chloride 1,000 mls @ 75 mls/hr 02/10/21 09:30 02/10/21 10:18 Saline 0.9% IV 75 mls/hr .[id number] [facility] Administration Peritoneal Dialysis Solution 37.5 g in 2,500 mls @ 0 mls/hr 02/10/21 21:00 02/11/21 03:48 Delflex With 1.5% Dextrose (2,500 Ml) INTRAPERIT 2,500 mls/hr Q6H [facility] Administration Protocol As Directed Lisinopril 5 mg 02/11/21 09:00 Lisinopril 5 Mg Tab PO DAILY [facility] Miscellaneous Information 1 each 02/10/21 15:43 Magnesium Replacement Protocol 1 Each Misc MISCELLANE DAILY PRN Per Protocol Protocol Multivit/Ca Carb/B Cmplx/FA/Prenat 1 each 02/11/21 09:00 Folic Acid-Vit B Complex-Vit C 1 Cap PO DAILY [facility] Naloxone HCl 0.2 mg 02/10/21 09:30 Naloxone 0.4 Mg/Ml 1 Ml Vial IV Q2M PRN Opioid Reversal Potassium Chloride 20 meq 02/11/21 09:00 Potassium Chloride Er 20 Meq Tab.Er PO DAILY [facility] Intake and Output 02/10/21 02/11/21 02/11/21 22:59 06:59 14:59 Intake Total 450 Balance 450 Intake: Intake, IV Titration 450 Amount Sodium Chloride 0.9% 1, 450 000 ml @ 75 mls/hr IV . [id number] [facility] Rx#:[id number] Other: # Voids 1 02/10/21 07:40 02/10/21 21:12
[2021-02-11] MEDS: HEPARIN SODIUM,PORCINE/PF 5,000 UNIT/0.5 ML SYRINGE SQ SCH (10:24)
[2021-02-11] MEDS: SODIUM CHLORIDE 0.9% 1,000 ML IV SCH ×2 (12:09→12:10)
[2021-02-11] MEDS: FAMOTIDINE 20 MG/2 ML VIAL IV SCH (12:09)
[2021-02-11] MEDS ORDERED: LEVOFLOXACIN 250 MG TAB PO SCH (13:00)
--- NOTE | 2021-02-11 13:33 | P.PN ---
Subjective This is a pleasant 55 years old male with past medical history of end-stage renal disease on peritoneal dialysis for times a day, hypothyroidism. Presents with generalized weakness and feeling Z for the last 2 days. 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 He reports similar symptoms last time his sodium was low also. He did already peritoneal dialysis twice earlier today. Scrubs his dizziness like presyncope but he never passed out. No spinning rooms also he is complaining of from the to diarrhea. But he attributed it to the antibiotics he was using for the last 2 weeks for possible infection around the peritoneal dialysis tube, after first week his antibiotics were switched to Levaquin which she was been taken to now. He denies smoking, alcohol or illicit drugs 02/11/2021 No more dizziness today which is improved. Also no diarrhea or vomiting which are improved as well. Cellulitis Around the peritoneal dialysis catheter have resolved and patient does not need antibiotics orthostatic vitals were checked and were negative Labs from today include repeat sodium are still pending as they are sent to outside facility Input is appreciated they recommended telemetry monitoring, echocardiogram is unremarkable showing ejection fraction of 55-60% Consulted currently remains on normal saline at 75 mL/h, he'll on IV fluids when his sodium went up during the night 126->128 Objective - Vital Signs Vital signs: Vital Signs Temp 98 F 02/11/21 09:34 Pulse 95 02/11/21 09:34 Resp 18 02/11/21 09:34 BP 108/65 02/11/21 09:34 Pulse Ox 98 02/11/21 09:34 Intake & Output 02/10/21 02/11/21 02/11/21 18:59 06:59 18:59 Intake Total 450 Balance 450 Weight 83.915 kg Intake: Intake, IV Titration 450 Amount Sodium Chloride 0.9% 1, 450 000 ml @ 75 mls/hr IV . [id number] [facility] Rx#:[id number] Other: # Voids 1 - Exam GENERAL: The patient is alert and oriented x3, not in any acute distress. Well developed, well nourished. HEENT: Pupils are round and equally reacting to light. EOMI. No scleral icterus. No conjunctival pallor. Normocephalic, atraumatic. No pharyngeal erythema. No thyromegaly. CARDIOVASCULAR: S1 and S2 present. No murmurs, rubs, or gallops. PULMONARY: Chest is clear to auscultation, no wheezing or crackles. -ABDOMEN: Soft, nontender, nondistended, normoactive bowel sounds. No palpable organomegaly. Right lower abdomen peritoneal dialysis with no cellulitis or ulcer MUSCULOSKELETAL: No joint swelling or deformity. EXTREMITIES: No cyanosis, clubbing, or pedal edema. NEUROLOGICAL: Gross neurological examination did not reveal any focal deficits. SKIN: No rashes. no petechiae. - Labs CBC & Chem 7: 02/10/21 07:40 02/10/21 21:12 Labs: Abnormal Lab Results - Last 24 Hours (Table) 02/10/21 Range/Units 21:12 Sodium 128 L (137-145) mmol/L Chloride 94 L (98-107) mmol/L BUN 51 H (9-20) mg/dL Creatinine 10.82 H* (0.66-1.25) mg/dL Glucose 133 H (74-99) mg/dL Calcium 8.2 L (8.4-10.2) mg/dL Assessment and Plan Assessment: Dizziness and presyncope, resolved Mild to moderate hypovolemic hyponatremia. Improving with IV fluid Gastroenteritis with mild diarrhea and vomiting, resolved. Recently treated for abdominal wall cellulitis around his dialysis tube, resolved No evidence of cellulitis currently End-stage renal disease on peritoneal dialysis Plan: This is a pleasant 55 years old male who presents with presyncope with hyponatremia, most likely secondary to dehydration from working in hot weather and secondary to gastroenteritis. 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 Continue same treatment. Continue with symptomatic treatment. Resume home medication. Monitor lytes and vitals. DVT and GI prophylaxis. Further recommendations as per clinical course of the patient DVT prophylaxis: Subcutaneous heparin GI Prophylaxis: Pepcid Prognosis is guarded
[2021-02-11 14:07] LABS: Basophils # (A) 0.02 X 10*3/uL (0.00-0.10); Basophils % (A) 0.4 %; Eosinophils # (A) 0.73 X 10*3/uL (0.04-0.35); Eosinophils % (A) 16.3 %; HGB 8.3 g/dL (13.0-17.0); Lymphocytes # (A) 0.66 X 10*3/uL (0.90-5.00); Lymphocytes % (A) 14.8 %; MCH 34.4 pg (27.0-32.0); MCHC 34.6 g/dL (32.0-37.0); MCV 99.6 fL (80.0-97.0); Mean Platelet Volume 9.7 fL (9.5-12.2); Monocytes # (A) 0.47 X 10*3/uL (0.20-1.00); Monocytes % (A) 10.5 %; Neutrophils # (A) 2.58 X 10*3/uL (1.80-7.70); Neutrophils % (A) 57.8 %; Platelet Count 95 X 10*3/uL (140-440); RBC 2.41 X 10*6/uL (4.40-5.60); RDW 12.6 % (11.5-14.5); WBC 4.47 X 10*3/uL (4.50-10.00)
[2021-02-11 14:25] VITALS: BP 111/68; PULSE 82; TEMP 98.7
--- NOTE | 2021-02-11 14:43 | CONS ---
CONSULTATION REASON FOR CONSULT: End-stage renal disease. HISTORY OF PRESENT ILLNESS: Patient is a 55-year-old male with end-stage renal disease on peritoneal dialysis who was admitted to the hospital with complaints of increased weakness and fatigue. The patient normally has good urine output. He has been maintained on peritoneal dialysis since 2019 and usually uses 1.5% solutions. However, he has had a previous history of volume depletion. The patient states that he was working outside over the weekend. It had been quite heart and he had not had much to eat or drink. He did have an episode of diarrhea as well. No fever, chills, nausea, or vomiting. The patient was noted to have a sodium of 126 on admission. He is currently maintained on IV fluids, normal saline. His sodium has improved to 128. Overall, patient states he is feeling better. Blood pressure has been about 140- 130 mmHg systolic. PAST MEDICAL HISTORY: End-stage renal disease, CKD mineral bone disorder, anemia of chronic disease, thyroid nodules, interstitial lung disease, details not known. PAST SURGICAL HISTORY: AV fistula, LASIK surgery on eye, peritoneal dialysis catheter placement, colonoscopy. SOCIAL HISTORY: Patient is a former smoker. No history of drug abuse or alcohol abuse. MEDICATIONS: Medications prior to admission included potassium, Zestril, Sensipar, multivitamins, Levaquin, ( ), magnesium glycinate, Levaquin. ALLERGIES: None. EXAMINATION: Patient is currently comfortable, awake, not in any acute distress. Alert, oriented x3. Blood pressure is 122/74, heart rate of 95 per minute. He is afebrile. Examination of the heart S1, S2. Examination of the lungs, bilateral breath sounds are heard. Abdomen is soft, nontender. Examination lower extremities shows no evidence of edema. ANIMAL GROOMER exam grossly intact. LAB: Show sodium 128, potassium 3.9, BUN 51, creatinine 10.8. ASSESSMENT: 1. End-stage renal disease, on peritoneal dialysis. We will continue the current exchanges at 1.5% solution q.6 hours. 2. Hypovolemia, maintained on normal saline, currently improved. 3. Hypovolemic hyponatremia, currently improved with saline administration. 4. Volume depletion. 5. Chronic kidney disease, mineral bone disorder. 6. Anemia of chronic disease. 7. Recent access site infection, finishing course of Levaquin. Will give one dose today. The site currently looks clean. PLAN: Check labs today. Patient can be discharged from nephrology standpoint. He states he feels pretty normal. He is advised to maintain adequate hydration at home and continue with his current PD exchanges. CHERISE / PHIL: [phone] /
[2021-02-11 16:34] LABS: African American GFR (CKD) 5.1 (60.0-200.0); Anion Gap 13.4 mmol/L (4.00-12.00); BUN/Creat Ratio 4.47 Ratio (12.00-20.00); Calcium 8.2 mg/dL (8.7-10.3); Carbon Dioxide 20.6 mmol/L (21.6-31.8); Magnesium 1.5 mg/dL (1.5-2.4); Non-African American GFR(CKD) 4.4 (60.0-200.0)
[2021-02-12] MEDS ORDERED: FAMOTIDINE 20 MG/2 ML VIAL IV SCH (09:00)
== END 2021-02-11 19:59 | disposition home or self-care (01) | DRG 640 ==
LOC: EC 07:10 → 4SSUR 09:45 → OBSVTOIN 19:48 → 4SSUR 21:19
PROVIDERS: ADMIT Internal Medicine; ATTEND Internal Medicine
PROC: 3E1M39Z Irrigation of Peritoneal Cavity using Dialysate, Percutaneous Approach (ICD-10-PCS; principal; 2021-02-11)
DX: E87.1 Hypo-osmolality and hyponatremia (principal); N18.6 End stage renal disease; R17 Unspecified jaundice; J84.9 Interstitial pulmonary disease, unspecified; I12.0 Hypertensive chronic kidney disease with stage 5 chronic kidney disease or end stage renal disease; E86.0 Dehydration; R55 Syncope and collapse; Z87.891 Personal history of nicotine dependence; Z99.2 Dependence on renal dialysis; E03.9 Hypothyroidism, unspecified; K52.9 Noninfective gastroenteritis and colitis, unspecified; E86.1 Hypovolemia; D63.8 Anemia in other chronic diseases classified elsewhere; I34.0 Nonrheumatic mitral (valve) insufficiency; M89.9 Disorder of bone, unspecified; Z79.899 Other long term (current) drug therapy
CPT/HCPCS: 36415; 71046; 80048; 80053; 81001; 82550; 83605; 83735; 84100; 84484; 85025; 85610; 85730; 93005; 93306; 99285

== ENCOUNTER → 2022-02-20 | Outpatient (CLI) | payer MEDICARE, OTHER ==
--- NOTE | 2022-02-22 11:25 | CA ---
Transthoracic Echo Report Name: Kush Sol Age: 56 Gender: M : 1965 Exam Date: 02/20/2022 12:56 Exam Location: [place] [facility] Ht (in): 67 Wt (lb): 192 Ordering Physician: Shayla Fonseca DO Attending/Referring Phys: V[employer]inter [employer]back Noreen Lynn RDCS Procedure CPT: Indications: I50.9 heart failure Cardiac Hx: Technical Quality: Fair Contrast 1: Total Dose (mL): Contrast 2: Total Dose (mL): MEASUREMENTS (Male / Female) Normal Values 2D ECHO LV Diastolic Diameter PLAX 5.5 cm 4.2 - 5.9 / 3.9 - 5.3 cm LV Systolic Diameter PLAX 4.0 cm IVS Diastolic Thickness 1.3 cm 0.6 - 1.0 / 0.6 - 0.9 cm LVPW Diastolic Thickness 1.4 cm 0.6 - 1.0 / 0.6 - 0.9 cm LV Relative Wall Thickness 0.5 RV Internal Dim ED PLAX 3.7 cm LA Volume 93.1 cm??? 18 - 58 / 22 - 52 cm??? M-MODE Aortic Root Diameter MM 3.2 cm LA Systolic Diameter MM 4.3 cm LA Ao Ratio MM 1.3 AV Cusp Separation MM 2.3 cm DOPPLER LVOT Peak Velocity 119.0 cm/s LVOT Peak Gradient 5.7 mmHg MV Area PHT 6.0 cm??? Mitral E Point Velocity 138.2 cm/s Mitral A Point Velocity 126.2 cm/s Mitral E to A Ratio 1.1 MV Deceleration Time 126.2 ms TR Peak Velocity 250.5 cm/s TR Peak Gradient 25.1 mmHg Right Ventricular Systolic Press 28.8 mmHg FINDINGS Left Ventricle Mildly increased septal wall thickness. Normal left ventricular systolic function with no obvious regional wall motion abnormalities. Normal left ventricular diastolic filling pattern. Left ventricular ejection fraction is estimated at 45-50 %. Abnormal (paradoxical) septal motion consistent with postoperative state. Right Ventricle Normal right ventricular size. Right ventricular systolic pressure within normal limits. Right Atrium Normal right atrial size. Left Atrium Moderate left atrial dilatation. Aneurismal atrial septum. Mitral Valve Mild mitral annular calcification. Mild mitral regurgitation. Aortic Valve Trileaflet aortic valve. No aortic valve stenosis or regurgitation. Tricuspid Valve Structurally normal tricuspid valve. Mild tricuspid regurgitation. Pulmonic Valve Trace pulmonic regurgitation. Pericardium No pericardial effusion. Aorta Normal size aortic root and proximal ascending aorta. CONCLUSIONS Ejection fraction appears to be in the range of 45-50% Please see above for further details Previewed by: Dr. Checo Mancia MD (Electronically Signed) Final Date: 22 February 2022 11:24
== END | disposition home or self-care (01) ==
LOC: RADECHMAIN 12:37
PROVIDERS: ATTEND Family Medicine
DX: I08.1 Rheumatic disorders of both mitral and tricuspid valves (principal)
CPT/HCPCS: 93306

== ENCOUNTER 2022-03-28 18:38 | Inpatient (IN) | payer MEDICARE, OTHER ==
[2022-03-28] MEDS ORDERED: SODIUM CHLORIDE 0.9% 1,000 ML IV STA (19:04)
[2022-03-28 19:21] LABS: Basophils # (A) 0.1 k/uL (0-0.2); Basophils % (A) 1 %; Eosinophils # (A) 2.3 k/uL (0-0.7); Eosinophils % (A) 26 %; HCT 27.8 % (39.0-53.0); HGB 9.6 gm/dL (13.0-17.5); Lymphocytes # (A) 0.7 k/uL (1.0-4.8); Lymphocytes % (A) 8 %; MCH 33.9 pg (25.0-35.0); MCHC 34.6 g/dL (31.0-37.0); Monocytes # (A) 0.5 k/uL (0-1.0); Monocytes % (A) 6 %; Neutrophils # (A) 5.3 k/uL (1.3-7.7); Neutrophils % (A) 59 %; Platelet Count 153 k/uL (150-450); RBC 2.84 m/uL (4.30-5.90); RDW 14.9 % (11.5-15.5); WBC 8.9 k/uL (3.8-10.6)
[2022-03-28 19:26] LABS: Albumin 4.1 g/dL (3.5-5.0); Calcium 8.8 mg/dL (8.4-10.2); Magnesium 1.7 mg/dL (1.6-2.3); Total Bilirubin 0.5 mg/dL (0.2-1.3); Total Protein 6.6 g/dL (6.3-8.2)
[2022-03-28] MEDS ORDERED: SODIUM CHLORIDE 0.9% 500 ML 500 ML IV STA (19:28)
--- NOTE | 2022-03-28 19:34 | ED ---
General Adult HPI - General Chief complaint: Syncope Stated complaint: near syncope Time Seen by Provider: 03/28/22 18:56 Source: patient, EMS, RN notes reviewed, old records reviewed Mode of arrival: EMS Limitations: no limitations - History of Present Illness Initial comments: 56-year-old male presents for evaluation of lightheadedness, near-syncope. Patient has history of end-stage renal disease on peritoneal dialysis. He states he has similar symptoms and was seen at outside facility and told that he had hyponatremia. Patient was discharged home with dietary restrictions. Patient denies associated chest pain. Denies fever. He states he is currently dealing with pneumonia and has been diagnosed with idiopathic pulmonary fibrosis. He has history of coronary artery disease status post bypass - Related Data Home Medications Medication Instructions Recorded Confirmed B Complex W-C No.20/Folic Acid 1 mg PO DAILY 05/14/20 02/10/21 [Renal Caps Softgel] Cinacalcet HCl 30 mg PO DAILY 05/14/20 02/10/21 Potassium Chloride [K-Tab ER] 20 meq PO DAILY 05/14/20 02/10/21 lisinopriL [Zestril] 5 mg PO DAILY 05/14/20 02/10/21 Cholecalciferol [Vitamin D3 (25 25 mcg PO DAILY 02/10/21 02/10/21 Mcg = 1000 Iu)] Gentamicin Sulfate [Gentamicin 1 applic TOPICAL DAILY 02/10/21 02/10/21 Sulfate 0.1% Oint.] Magnesium Glycinate 100mg 200 mg PO BID PRN 02/10/21 02/10/21 Velphoro 500mg 1,000 mg PO AC-TID 02/10/21 02/10/21 Velphoro 500mg 500 mg PO BID PRN 02/10/21 02/10/21 Allergies Allergy/AdvReac Type Severity Reaction Status Date / Time No Known Allergies Allergy Verified 03/28/22 18:46 Review of Systems ROS Statement: Those systems with pertinent positive or pertinent negative responses have been documented in the HPI. ROS Other: All systems not noted in ROS Statement are negative. Past Medical History Past Medical History: Renal Disease, Thyroid Disorder Additional Past Medical History / Comment(s): Dialysis, interstitial lung disease History of Any Multi-Drug Resistant Organisms: None Reported Past Surgical History: Orthopedic Surgery Additional Past Surgical History / Comment(s): AV fistula left arm. bilateral shoulders. right heel. lasik eye surgery. dialysis port abdomen, COLONOSCOPY Past Anesthesia/Blood Transfusion Reactions: No Reported Reaction Past Psychological History: No Psychological Hx Reported Smoking Status: Former smoker Past Alcohol Use History: None Reported Past Drug Use History: None Reported - Past Family History Father Family Medical History: Cancer General Exam Limitations: no limitations General appearance: alert, in no apparent distress Head exam: Present: atraumatic, normocephalic Eye exam: Present: normal appearance, PERRL ENT exam: Present: normal exam Neck exam: Present: normal inspection. Absent: tenderness, meningismus Respiratory exam: Present: normal lung sounds bilaterally. Absent: respiratory distress, wheezes Cardiovascular Exam: Present: regular rate, normal rhythm GI/Abdominal exam: Present: distended. Absent: tenderness, guarding Extremities exam: Present: normal inspection Neurological exam: Present: alert, oriented X3, CN II-XII intact. Absent: motor sensory deficit Psychiatric exam: Present: normal affect, normal mood Skin exam: Present: warm, dry, intact. Absent: cyanosis, diaphoretic Course Vital Signs 03/28/22 18:43 Temperature 98.2 F Pulse Rate 84 Respiratory 18 Rate Blood Pressure 122/68 O2 Sat by Pulse 99 Oximetry EKG Findings - EKG Comments: EKG Findings:: hythm with first-degree AV block, rate of 84, ND interval 216, QRS duration 92, QTC [address] segment elevation. Medical Decision Making - Medical Decision Making 56-year-old male with near syncopal episode, end-stage renal disease on peritoneal dialysis. He should is in sinus rhythm. Patient had started peritoneal dialysis at noon. His nursing to be may be related to fluid shifts. He has some pulmonary edema as well as fibrosis on x-ray. He has stable anemia, normal white blood cell count, his sodium is 128. She will be admitted with nephrology on consult, he'll be monitored on telemetry. - Lab Data Result diagrams: 03/28/22 19:09 03/28/22 19:09 Lab Results 03/28/22 03/28/22 03/28/22 Range/Units 19:09 19:09 19:09 WBC 8.9 (3.8-10.6) k/uL RBC 2.84 L (4.30-5.90) m/uL Hgb 9.6 L (13.0-17.5) gm/dL Hct 27.8 L (39.0-53.0) % MCV 98.0 (80.0-100.0) fL MCH 33.9 (25.0-35.0) pg MCHC 34.6 (31.0-37.0) g/dL RDW 14.9 (11.5-15.5) % Plt Count 153 (150-450) k/uL MPV 7.0 Neutrophils % 59 % Lymphocytes % 8 % Monocytes % 6 % Eosinophils % 26 % Basophils % 1 % Neutrophils # 5.3 (1.3-7.7) k/uL Lymphocytes # 0.7 L (1.0-4.8) k/uL Monocytes # 0.5 (0-1.0) k/uL Eosinophils # 2.3 H (0-0.7) k/uL Basophils # 0.1 (0-0.2) k/uL Manual Slide Review Performed PT 10.4 (9.0-12.0) sec INR 0.9 (<1.2) APTT 16.3 L (22.0-30.0) sec Sodium 128 L (137-145) mmol/L Potassium 4.0 (3.5-5.1) mmol/L Chloride 86 L (98-107) mmol/L Carbon Dioxide 24 (22-30) mmol/L Anion Gap 18 mmol/L BUN 56 H (9-20) mg/dL Creatinine 12.15 H* (0.66-1.25) mg/dL Est GFR (CKD-EPI)AfAm 5 (>60 ml/min/1.73 sqM) Est GFR (CKD-EPI)NonAf 4 (>60 ml/min/1.73 sqM) Glucose 109 H (74-99) mg/dL Calcium 8.8 (8.4-10.2) mg/dL Magnesium 1.7 (1.6-2.3) mg/dL Total Bilirubin 0.5 (0.2-1.3) mg/dL AST 38 (17-59) U/L ALT 35 (4-49) U/L Alkaline Phosphatase 100 (38-126) U/L Total Protein 6.6 (6.3-8.2) g/dL Albumin 4.1 (3.5-5.0) g/dL Disposition Clinical Impression: Hyponatremia, Near syncope, Renal failure Disposition: ADMITTED IP TO THIS HOSP Condition: Stable Is patient prescribed a controlled substance at d/c from ED?: No Referrals: Shayla Fonseca DO [Primary Care Provider] - 1-2 days Time of Disposition: 20:40
[2022-03-28 19:36] LABS: INR 0.9 (<1.2); Prothrombin Time 10.4 sec (9.0-12.0)
[2022-03-28 19:44] LABS: Partial Thromboplastin Time 16.3 sec (22.0-30.0)
--- NOTE | 2022-03-28 19:49 | XR ---
EXAMINATION TYPE: XR chest 2V DATE OF EXAM: 03/28/2022 COMPARISON: NONE HISTORY: Syncope TECHNIQUE: FINDINGS: There is coarse interstitial density in the lungs. Heart is slightly enlarged. There are ch est leads. There are sternal wires. There is mild blunting of the costophrenic angles. IMPRESSION: There is evidence of some congestive heart failure. There is probably underlying pulmonar y fibrosis.
[2022-03-28] MEDS ORDERED: NALOXONE 0.4 MG/ML 1 ML VIAL IV PRN (20:37)
[2022-03-28] MEDS: GENTAMICIN 0.1% CREAM 15 GM TUBE TOPICAL SCH (23:35)
[2022-03-29] MEDS ORDERED: ALBUTEROL NEBULIZED 2.5 MG/3 ML INHALATION PRN (00:09)
[2022-03-29] MEDS ORDERED: GENTAMICIN SULFATE TOPICAL PRN (00:09)
[2022-03-29] MEDS ORDERED: FLUTICASONE 50MCG/SPRAY NASAL 16GM EA NOSTRIL PRN (00:09)
[2022-03-29] MEDS: LEVOTHYROXINE 88 MCG TAB PO SCH (06:31)
[2022-03-29] MEDS: carvediloL 12.5 MG TAB PO SCH ×2 (07:58→19:58)
[2022-03-29] MEDS: ASPIRIN 81 MG PO SCH (07:58)
[2022-03-29] MEDS: CINACALCET 30 MG TAB PO SCH (07:58)
[2022-03-29] MEDS: GENTAMICIN 0.1% CREAM 15 GM TUBE TOPICAL SCH ×3 (09:50→22:52)
--- NOTE | 2022-03-29 11:17 | P.NPCON ---
History of Present Illness - Reason for Consult Consult date: 03/29/22 end stage renal disease - Chief Complaint Syncope - History of Present Illness This is a 56-year-old male with end-stage renal failure secondary to autosomal dominant polycystic kidney disease, on peritoneal dialysis under Dr. Lozano. He came in because of near syncope at home. Supposedly blood pressure was in the 60 range he denies any nausea vomiting diarrhea. He uses 1.5 and 2.5% 2500 mL manual exchanges and aren't of infiltrates about 1600 mL. Urine output is minimal. No fever chills no cough. His past history is also significant for coronary artery bypass graft recently November 07, and dysphagia lung disease but not on any steroids or oxygen. Post cardiac surgery he had transient atrial fibrillation. Currently on carvedilol. His hemoglobin is 9.6, sodium is 128 creatinine 12.15 and BUN is 56 Past Medical History Past Medical History: Renal Disease, Thyroid Disorder Additional Past Medical History / Comment(s): Dialysis, interstitial lung disease History of Any Multi-Drug Resistant Organisms: None Reported Past Surgical History: Orthopedic Surgery Additional Past Surgical History / Comment(s): AV fistula left arm. bilateral shoulders. right heel. lasik eye surgery. dialysis port abdomen, COLONOSCOPY Past Anesthesia/Blood Transfusion Reactions: No Reported Reaction Past Psychological History: No Psychological Hx Reported Smoking Status: Former smoker Past Alcohol Use History: None Reported Past Drug Use History: None Reported - Past Family History Father Family Medical History: Cancer Medications and Allergies Home Medications Medication Instructions Recorded Confirmed Type Cinacalcet HCl 30 mg PO DAILY 05/14/20 03/28/22 History Gentamicin Sulfate [Gentamicin 1 applic TOPICAL DAILY PRN 02/10/21 03/28/22 History Sulfate 0.1% Oint.] Magnesium Glycinate 100mg 100 mg PO BID 02/10/21 03/28/22 History Velphoro 500mg 1,000 mg PO TID-W/MEALS 02/10/21 03/28/22 History Velphoro 500mg 500 mg PO BID PRN 02/10/21 03/28/22 History Albuterol Inhaler [Ventolin Hfa 2 puff INHALATION RT-QID PRN 03/28/22 03/28/22 History Inhaler] Aspirin EC [Ecotrin Low Dose] 81 mg PO DAILY 03/28/22 03/28/22 History Atorvastatin [Lipitor] 40 mg PO HS 03/28/22 03/28/22 History Azithromycin [Zithromax] See Taper PO DIRECTED 03/28/22 03/28/22 History Calcium Carbonate 1,500 mg PO BID 03/28/22 03/28/22 History Fluticasone Nasal [place] [Flonase 1 - 2 spray EA NOSTRIL BID PRN 03/28/22 03/28/22 History Nasal [place]] Levothyroxine Sodium [Synthroid] 175 mcg PO DAILY 03/28/22 03/28/22 History Cristal-Aris 1 tab PO DAILY 03/28/22 03/28/22 History carvediloL [Coreg] 12.5 mg PO BID-W/MEALS 03/28/22 03/28/22 History Allergies Allergy/AdvReac Type Severity Reaction Status Date / Time No Known Allergies Allergy Verified 03/28/22 22:01 Physical Exam Vitals: Vital Signs Temp Pulse Resp BP Pulse Ox 03/29/22 06:36 98 F 87 19 102/70 98 03/28/22 22:53 84 18 109/70 99 03/28/22 18:43 98.2 F 84 18 122/68 99 Intake and Output 03/28/22 03/29/22 03/29/22 22:59 06:59 14:59 Other: Weight 83.915 kg Awake alert oriented comfortable HEENT exam no JVP neck is supple no facial asymmetry Lungs clear to auscultation good air entry bilaterally no evidence of any chronic interstitial lung disease Heart sounds unremarkable. Monitor shows normal sinus rhythm Abdomen soft nontender. Peritoneal dialysis catheter site clean Extremity exam was no edema Neurologically awake alert oriented no focal motor deficit Results - Lab Results Most recent lab results Calcium 8.8 mg/dL (8.4-10.2) 03/28/22 19:09 Magnesium 1.7 mg/dL (1.6-2.3) 03/28/22 19:09 03/28/22 19:09 03/28/22 19:09 Assessment and Plan Assessment: Impression 1. Near syncope with low blood pressure supposedly in the 60s. Possibly volume depleted. Other etiology for near-syncope is sodium of 1.28 which is somewhat unlikely at that level. 2. Autosomal dominant polycystic kidney disease on peritoneal dialysis since 2019. On 1.5% and 2.5% to 35 and 6 was 4 manual exchanges with ultrafiltration of 1600 mL of urine output is minimal. 3. History of coronary artery bypass graft recently October 2021 4. Anemia hemoglobin is nearly at target at 9.6 5. Recent echocardiogram dated 02/20/2022 shows ejection fraction at 45-50% Recommendation 1. Reduce free water intake 1500 cc 2. Coreg to 6.125 twice a day, hold blood pressure medications if systolic less than 110 3. Orthostatic blood pressures were checked supine pressure 115/79, heart rate 82 and standing up was 113/72 with a heart rate of 89 4. Use 1.5% PD solution 2500, 4 exchanges only and ovoid 2.5% and volume depletion 5. Redo Na today before discharge 6. Ok to b discharged
[2022-03-29 11:39] LABS: Basophils # (A) 0.04 X 10*3/uL (0.00-0.10); Basophils % (A) 0.5 %; Eosinophils # (A) 1.83 X 10*3/uL (0.04-0.35); Eosinophils % (A) 23.4 %; HCT 22.3 % (39.6-50.0); HGB 7.8 g/dL (13.0-17.0); Immature Grans, Automated 0.1 %; Lymphocytes # (A) 0.73 X 10*3/uL (0.90-5.00); Lymphocytes % (A) 9.3 %; MCH 33.8 pg (27.0-32.0); MCV 96.5 fL (80.0-97.0); Mean Platelet Volume 9.2 fL (9.5-12.2); Monocytes # (A) 0.63 X 10*3/uL (0.20-1.00); NRBC Per 100 WBC 0 /100 WBCS (0.0-0.0); Neutrophils # (A) 4.59 X 10*3/uL (1.80-7.70); Neutrophils % (A) 58.7 %; Platelet Count 135 X 10*3/uL (140-440); RBC 2.31 X 10*6/uL (4.40-5.60); RDW 14.6 % (11.5-14.5); WBC 7.83 X 10*3/uL (4.50-10.00)
[2022-03-29 11:53] LABS: Magnesium 1.8 mg/dL (1.5-2.4)
[2022-03-29 11:59] LABS: African American GFR (CKD) 4.9 (60.0-200.0); Albumin 3.2 g/dL (3.8-4.9); Albumin/Globulin Ratio 1.65 (1.60-3.17); Anion Gap 13.3 mmol/L (10.00-18.00); BUN/Creat Ratio 4.25 Ratio (12.00-20.00); Blood Urea Nitrogen 50.1 mg/dL (9.0-27.0); Carbon Dioxide 25.4 mmol/L (20.0-27.5); Globulin 1.9 g/dL (1.6-3.3); Non-African American GFR(CKD) 4.2 (60.0-200.0); Potassium 3.8 mmol/L (3.5-5.5); Total Bilirubin 0.3 mg/dL (0.30-1.20); Total Protein 5.1 g/dL (6.2-8.2)
[2022-03-29] MEDS ORDERED: SODIUM CHLORIDE 0.9% 500 ML 500 ML IV ONE (12:55)
[2022-03-29 16:39] LABS: African American GFR (CKD) 5 (>60 ml/min/1.73 sqM); Anion Gap 12 mmol/L; Blood Urea Nitrogen 56 mg/dL (9-20); Calcium 7.6 mg/dL (8.4-10.2); Carbon Dioxide 25 mmol/L (22-30); Chloride 88 mmol/L (98-107); Glucose 117 mg/dL (74-99); Non-African American GFR(CKD) 4 (>60 ml/min/1.73 sqM); Potassium 3.9 mmol/L (3.5-5.1); Sodium 125 mmol/L (137-145)
[2022-03-29] MEDS: ATORVASTATIN 40 MG TAB PO SCH (19:58)
[2022-03-29] MEDS: DIALYSIS (PERIT 1.5%) 2,500 ML 37.5 G/2,500 ML BAG INTRAPERIT SCH ×2 (21:26→22:54)
--- NOTE | 2022-03-29 22:28 | P.HPIM ---
History of Present Illness H&P Date: 03/29/22 Chief Complaint: Near Syncope Patient is a 56-year-old male with a known history of ESRD on peritoneal dialysis, autosomal dominant polycystic kidney disease, hypothyroidism, interstitial lung disease unclear history of smoking presents to ER with complaints of near syncopal episode at home. SBP was in the 80s when checked at home. Denies any complaints of chest pain. No loss of consciousness. No cough or sputum production. Denies any dysuria or hematuria. No fever no chills. Patient was seen at outside facility and was told he had hyponatremia. Patient was discharged home with dietary restrictions. Does have history of connected status post bypass graft. Chest x-ray showed there is evidence of of some congestive heart failure. There is probably underlying pulmonary fibrosis. EKG showed sinus rhythm with first-degree AV block. Laboratory data showed WBC 8.9 hemoglobin 9.6 and platelets 153 INR 0.9 Sodium 129 potassium 4.0 chloride 86 bicarb is 24 BUN 56 and creatinine 12.15 Blood sugar is 109 calcium 8.8 magnesium 1.7 total bilirubin 0.5 alk phos 100 Review of Systems Constitutional: Patient denies any fever or chills . Generalized weakness. Abdomen: Patient denied any nausea or vomiting or abd. pain Cardiovascular: Patient denies any chest pain or short of breath no palpitations. Respiratory: patient denied any cough is from production. + shortness of breath Neurologic: Patient denied any numbness or tingling headache. Musculoskeletal: Patient denies any complaints of joint swelling or deformity. Skin: Negative Psychiatric: Negative Endocrine: No heat or cold intolerance. No recent weight gain. Genitourinary: No dysuria or hematuria. All other 14 point ROS negative except the above Past Medical History Past Medical History: Renal Disease, Thyroid Disorder Additional Past Medical History / Comment(s): Dialysis, interstitial lung disease History of Any Multi-Drug Resistant Organisms: None Reported Past Surgical History: Orthopedic Surgery Additional Past Surgical History / Comment(s): AV fistula left arm. bilateral shoulders. right heel. lasik eye surgery. dialysis port abdomen, COLONOSCOPY Past Anesthesia/Blood Transfusion Reactions: No Reported Reaction Past Psychological History: No Psychological Hx Reported Smoking Status: Former smoker Past Alcohol Use History: None Reported Past Drug Use History: None Reported - Past Family History Father Family Medical History: Cancer Medications and Allergies Home Medications Medication Instructions Recorded Confirmed Type Cinacalcet HCl 30 mg PO DAILY 05/14/20 03/28/22 History Gentamicin Sulfate [Gentamicin 1 applic TOPICAL DAILY PRN 02/10/21 03/28/22 History Sulfate 0.1% Oint.] Magnesium Glycinate 100mg 100 mg PO BID 02/10/21 03/28/22 History Velphoro 500mg 1,000 mg PO TID-W/MEALS 02/10/21 03/28/22 History Velphoro 500mg 500 mg PO BID PRN 02/10/21 03/28/22 History Albuterol Inhaler [Ventolin Hfa 2 puff INHALATION RT-QID PRN 03/28/22 03/28/22 History Inhaler] Aspirin EC [Ecotrin Low Dose] 81 mg PO DAILY 03/28/22 03/28/22 History Atorvastatin [Lipitor] 40 mg PO HS 03/28/22 03/28/22 History Azithromycin [Zithromax] See Taper PO DIRECTED 03/28/22 03/28/22 History Calcium Carbonate 1,500 mg PO BID 03/28/22 03/28/22 History Fluticasone Nasal [place] [Flonase 1 - 2 spray EA NOSTRIL BID PRN 03/28/22 03/28/22 History Nasal [place]] Levothyroxine Sodium [Synthroid] 175 mcg PO DAILY 03/28/22 03/28/22 History Cristal-Aris 1 tab PO DAILY 03/28/22 03/28/22 History carvediloL [Coreg] 12.5 mg PO BID-W/MEALS 03/28/22 03/28/22 History Allergies Allergy/AdvReac Type Severity Reaction Status Date / Time No Known Allergies Allergy Verified 03/28/22 22:01 Physical Exam Vitals: Vital Signs Temp Pulse Resp BP Pulse Ox 03/29/22 06:36 98 F 87 19 102/70 98 03/28/22 22:53 84 18 109/70 99 03/28/22 18:43 98.2 F 84 18 122/68 99 Intake and Output 03/28/22 03/29/22 03/29/22 22:59 06:59 14:59 Other: Weight 83.915 kg PHYSICAL EXAMINATION: Patient is lying in the bed comfortably, no acute distress, awake alert and oriented.. HEENT: Normocephalic. Neck is supple. Pupils reactive. Nostrils clear. Oral cavity is moist. Neck reveals no JVD, carotid bruits, or thyromegaly. CHEST EXAMINATION: Trachea is central. Symmetrical expansion. Bibasilar diminished sounds. Minimal crackles. Lung garcia clear to auscultation and percussion. CARDIAC: Normal S1, S2 with no gallops. No murmurs ABDOMEN: Soft. Bowel sounds present. Nontender. No organomegaly. No abdominal bruits. Extremities: Bilateral trace edema. No clubbing or cyanosis Neurologically awake, alert, oriented x3 with well-coordinated movements. No focal deficits noted Skin: No rash or skin lesions. Psychiatric: Coperative. Nonsuicidal, Musculoskeletal: No joint swelling or deformity. Normal range of motion. Results CBC & Chem 7: 03/29/22 06:04 03/29/22 21:55 Labs: Abnormal Lab Results - Last 24 Hours (Table) 03/28/22 03/28/22 03/28/22 Range/Units 19:09 19:09 19:09 RBC 2.84 L (4.30-5.90) m/uL Hgb 9.6 L (13.0-17.5) gm/dL Hct 27.8 L (39.0-53.0) % MCH (27.0-32.0) pg RDW (11.5-14.5) % Plt Count (140-440) X 10*3/uL MPV (9.5-12.2) fL Lymphocytes # 0.7 L (1.0-4.8) k/uL Eosinophils # 2.3 H (0-0.7) k/uL APTT 16.3 L (22.0-30.0) sec Sodium 128 L (137-145) mmol/L Chloride 86 L (98-107) mmol/L BUN 56 H (9-20) mg/dL Creatinine 12.15 H* (0.66-1.25) mg/dL Est GFR (CKD-EPI)AfAm (60.0-200.0) Est GFR (CKD-EPI)NonAf (60.0-200.0) BUN/Creatinine Ratio (12.00-20.00) Ratio Glucose 109 H (74-99) mg/dL Calcium (8.7-10.3) mg/dL Total Protein (6.2-8.2) g/dL Albumin (3.8-4.9) g/dL 03/29/22 03/29/22 Range/Units 06:04 06:04 RBC 2.31 L (4.30-5.90) m/uL Hgb 7.8 L (13.0-17.5) gm/dL Hct 22.3 L (39.0-53.0) % MCH 33.8 H (27.0-32.0) pg RDW 14.6 H (11.5-14.5) % Plt Count 135 L (140-440) X 10*3/uL MPV 9.2 L (9.5-12.2) fL Lymphocytes # 0.73 L (1.0-4.8) k/uL Eosinophils # 1.83 H (0-0.7) k/uL APTT (22.0-30.0) sec Sodium 130 L (137-145) mmol/L Chloride 91 L (98-107) mmol/L BUN 50.1 H (9-20) mg/dL Creatinine 11.8 H* (0.66-1.25) mg/dL Est GFR (CKD-EPI)AfAm 4.9 L (60.0-200.0) Est GFR (CKD-EPI)NonAf 4.2 L (60.0-200.0) BUN/Creatinine Ratio 4.25 L (12.00-20.00) Ratio Glucose (74-99) mg/dL Calcium 8.0 L (8.7-10.3) mg/dL Total Protein 5.1 L (6.2-8.2) g/dL Albumin 3.2 L (3.8-4.9) g/dL Thrombosis Risk Factor Assmnt - DVT/VTE Prophylaxis DVT/VTE Prophylaxis: Pharmacologic Prophylaxis ordered Assessment and Plan Assessment: Near syncopal episode likely due to hypotension and volume depletion. Hyponatremia with sodium level 128 on admission ESRD on peritoneal dialysis Autosomal dominant polycystic kidney disease History of coronary disease post CABG in October 2021 Anemia of chronic disease hemoglobin 9.6 Chronic CHF with mildly reduced systolic dysfunction. Ejection fraction 45 to 50%. Hypothyroidism Hypertension Interstitial lung disease and recent history of pneumonia Prior history of smoking DVT prophylaxis Plan: Patient was given IV fluid bolus in the ER with improvement and blood pressure. Orthostatic vitals negative. Currently undergoing peritoneal hemodialysis. Started on home blood pressure medications and monitor closely. Follow-up sodium level. Repeat sodium level this afternoon. Fluid limitation at 1.5 L Nephrology has seen the patient. Anticipate discharge with improvement in sodium level. Time with Patient: Greater than 30
[2022-03-29 23:32] LABS: T4, Free (Free Thyroxine) 2.29 ng/dL (0.78-2.19)
[2022-03-30] MEDS: DIALYSIS (PERIT 1.5%) 2,500 ML 37.5 G/2,500 ML BAG INTRAPERIT SCH ×4 (05:59→23:51)
[2022-03-30] MEDS: LEVOTHYROXINE 88 MCG TAB PO SCH (05:59)
[2022-03-30 06:52] LABS: African American GFR (CKD) 5 (>60 ml/min/1.73 sqM); Anion Gap 13 mmol/L; Blood Urea Nitrogen 54 mg/dL (9-20); Carbon Dioxide 23 mmol/L (22-30); Chloride 89 mmol/L (98-107); Glucose 88 mg/dL (74-99); Non-African American GFR(CKD) 4 (>60 ml/min/1.73 sqM); Sodium 125 mmol/L (137-145)
[2022-03-30] MEDS: carvediloL 12.5 MG TAB PO SCH ×2 (08:01→18:04)
[2022-03-30] MEDS: CINACALCET 30 MG TAB PO SCH (08:01)
[2022-03-30] MEDS: ASPIRIN 81 MG PO SCH (08:01)
[2022-03-30] MEDS: GENTAMICIN 0.1% CREAM 15 GM TUBE TOPICAL SCH ×3 (08:02→23:52)
[2022-03-30 09:41] LABS: Basophils # (A) 0.05 X 10*3/uL (0.00-0.10); Basophils % (A) 0.5 %; Eosinophils # (A) 2.42 X 10*3/uL (0.04-0.35); Eosinophils % (A) 24.3 %; HGB 8.3 g/dL (13.0-17.0); Immature Grans, Automated 0.2 %; Lymphocytes # (A) 0.88 X 10*3/uL (0.90-5.00); Lymphocytes % (A) 8.8 %; MCH 33.6 pg (27.0-32.0); MCHC 34.6 g/dL (32.0-37.0); MCV 97.2 fL (80.0-97.0); Mean Platelet Volume 9.3 fL (9.5-12.2); Monocytes # (A) 0.69 X 10*3/uL (0.20-1.00); Monocytes % (A) 6.9 %; NRBC Per 100 WBC 0 /100 WBCS (0.0-0.0); Neutrophils % (A) 59.3 %; Platelet Count 154 X 10*3/uL (140-440); RBC 2.47 X 10*6/uL (4.40-5.60); RDW 14.7 % (11.5-14.5); WBC 9.96 X 10*3/uL (4.50-10.00)
[2022-03-30] MEDS ORDERED: SODIUM CHLORIDE 0.9% 500 ML 250 ML IV ONE (09:52)
--- NOTE | 2022-03-30 09:55 | P.PN ---
Subjective Patient is seen in follow-up for end-stage renal disease. He is maintained on peritoneal dialysis. No active complaints. No vomiting or diarrhea. Oral intake is fair. Sodium level stable at 125 today. Vital signs are stable. General: Awake. No acute distress. HEENT: Head exam is unremarkable. LUNGS: Breath sounds decreased. HEART: Rate and Rhythm are regular. ABDOMEN: Soft, no distention. EXTREMITITES: No edema. Objective - Vital Signs Vital signs: Vital Signs Temp 98.2 F 03/30/22 08:04 Pulse 88 03/30/22 08:04 Resp 18 03/30/22 08:04 BP 120/76 03/30/22 08:04 Pulse Ox 98 03/30/22 08:04 FiO2 Intake & Output 03/29/22 03/30/22 03/30/22 18:59 06:59 18:59 Output Total 300 Balance -300 Output: Urine 300 Other: Voiding Method Toilet - Labs CBC & Chem 7: 03/30/22 06:08 03/30/22 06:08 Labs: Abnormal Lab Results - Last 24 Hours (Table) 03/29/22 03/29/22 03/29/22 Range/Units 06:04 06:04 15:56 RBC 2.31 L (4.40-5.60) X 10*6/uL Hgb 7.8 L (13.0-17.0) g/dL Hct 22.3 L (39.6-50.0) % MCV (80.0-97.0) fL MCH 33.8 H (27.0-32.0) pg RDW 14.6 H (11.5-14.5) % Plt Count 135 L (140-440) X 10*3/uL MPV 9.2 L (9.5-12.2) fL Lymphocytes # 0.73 L (0.90-5.00) X 10*3/uL Eosinophils # 1.83 H (0.04-0.35) X 10*3/uL Sodium 130 L 125 L (135-145) mmol/L Chloride 91 L 88 L (96-109) mmol/L BUN 50.1 H 56 H (9.0-27.0) mg/dL Creatinine 11.8 H* 11.48 H* (0.6-1.5) mg/dL Est GFR (CKD-EPI)AfAm 4.9 L (60.0-200.0) Est GFR (CKD-EPI)NonAf 4.2 L (60.0-200.0) BUN/Creatinine Ratio 4.25 L (12.00-20.00) Ratio Glucose 117 H (74-99) mg/dL Calcium 8.0 L 7.6 L (8.7-10.3) mg/dL Total Protein 5.1 L (6.2-8.2) g/dL Albumin 3.2 L (3.8-4.9) g/dL TSH (0.465-4.680) mIU/L Free T4 (0.78-2.19) ng/dL 03/29/22 03/29/22 03/30/22 Range/Units 21:55 21:55 06:08 RBC (4.40-5.60) X 10*6/uL Hgb (13.0-17.0) g/dL Hct (39.6-50.0) % MCV (80.0-97.0) fL MCH (27.0-32.0) pg RDW (11.5-14.5) % Plt Count (140-440) X 10*3/uL MPV (9.5-12.2) fL Lymphocytes # (0.90-5.00) X 10*3/uL Eosinophils # (0.04-0.35) X 10*3/uL Sodium 125 L 125 L (135-145) mmol/L Chloride 89 L (96-109) mmol/L BUN 54 H (9.0-27.0) mg/dL Creatinine 11.79 H* (0.6-1.5) mg/dL Est GFR (CKD-EPI)AfAm (60.0-200.0) Est GFR (CKD-EPI)NonAf (60.0-200.0) BUN/Creatinine Ratio (12.00-20.00) Ratio Glucose (74-99) mg/dL Calcium 8.0 L (8.7-10.3) mg/dL Total Protein (6.2-8.2) g/dL Albumin (3.8-4.9) g/dL TSH 0.049 L (0.465-4.680) mIU/L Free T4 2.29 H (0.78-2.19) ng/dL 03/30/22 Range/Units 06:08 RBC 2.47 L (4.40-5.60) X 10*6/uL Hgb 8.3 L (13.0-17.0) g/dL Hct 24.0 L (39.6-50.0) % MCV 97.2 H (80.0-97.0) fL MCH 33.6 H (27.0-32.0) pg RDW 14.7 H (11.5-14.5) % Plt Count (140-440) X 10*3/uL MPV 9.3 L (9.5-12.2) fL Lymphocytes # 0.88 L (0.90-5.00) X 10*3/uL Eosinophils # 2.42 H (0.04-0.35) X 10*3/uL Sodium (135-145) mmol/L Chloride (96-109) mmol/L BUN (9.0-27.0) mg/dL Creatinine (0.6-1.5) mg/dL Est GFR (CKD-EPI)AfAm (60.0-200.0) Est GFR (CKD-EPI)NonAf (60.0-200.0) BUN/Creatinine Ratio (12.00-20.00) Ratio Glucose (74-99) mg/dL Calcium (8.7-10.3) mg/dL Total Protein (6.2-8.2) g/dL Albumin (3.8-4.9) g/dL TSH (0.465-4.680) mIU/L Free T4 (0.78-2.19) ng/dL Assessment and Plan Plan: Assessment: 1. End-stage renal disease maintained on peritoneal dialysis. 2. Hyponatremia secondary to chronic kidney disease. Patient is not on any thiazide diuretics. Denies any history of malignancy. Possible component of S IADH from recent pneumonia. TSH low. 3. Chronic disease mineral bone disease maintained on Sensipar. 4. Recent pneumonia. Currently afebrile and white count normal. 5. Anemia of chronic kidney disease. Rule out iron deficiency. 6. Near syncope. Blood pressure 120/76 this morning. Plan: Maintain current PD exchanges. Maintain fluid restriction. Encourage protein intake. 250 mL bolus of normal saline today. Check iron studies. Check urine osmolality and urine sodium is able to give sample.
[2022-03-30 15:39] LABS: % Iron Saturation 49.22 (15.00-50.00)
[2022-03-30] MEDS: ATORVASTATIN 40 MG TAB PO SCH (19:40)
--- NOTE | 2022-03-31 00:29 | P.PN ---
Subjective Progress Note Date: 03/30/22 Patient is a 56-year-old male with a known history of ESRD on peritoneal dialysis, autosomal dominant polycystic kidney disease, hypothyroidism, interstitial lung disease unclear history of smoking presents to ER with complaints of near syncopal episode at home. SBP was in the 80s when checked at home. Denies any complaints of chest pain. No loss of consciousness. No cough or sputum production. Denies any dysuria or hematuria. No fever no chills. Patient was seen at outside facility and was told he had hyponatremia. Patient was discharged home with dietary restrictions. Does have history of connected status post bypass graft. Chest x-ray showed there is evidence of of some congestive heart failure. There is probably underlying pulmonary fibrosis. EKG showed sinus rhythm with first-degree AV block. Laboratory data showed WBC 8.9 hemoglobin 9.6 and platelets 153 INR 0.9 Sodium 129 potassium 4.0 chloride 86 bicarb is 24 BUN 56 and creatinine 12.15 Blood sugar is 109 calcium 8.8 magnesium 1.7 total bilirubin 0.5 alk phos 100 03/30/2022 Patient is seen and evaluated in follow-up this morning and continued on peritoneal dialysis with nephrology following. Patient was given another 250ml bolus of NS with improvement in blood pressure although no improvement iin sodium as it remains 125 for the last three readings. Recommend follow up labs in the am with continued fluid restrictions. Patient reports cough with some phlegm production and was recently diagnosed with pneumonia at another hospital a few weeks back. Patient was sent home on oral abx and did not finish them yet. Chest xray not suggestive on pneumonia here. Patient is afebrile and on room air. Denies chest pain or palpitations. Encouraged oral intake and increased activity as tolerated. Review of systems: Constitutional: No reports of fatigue, fever, or chills Cardiovascular: No reports of chest pain or palpitations Respiratory: No reports of shortness of breath or cough GI: No reports of nausea, vomiting, or diarrhea : No reports of dysuria or retention Neurovascular: No reports of weakness or numbness All medications have been reviewed Active Medications Albuterol Sulfate (Albuterol Nebulized 2.5 Mg/3 Ml) 2.5 mg INHALATION RT-QID PRN PRN Reason: Shortness Of Breath Aspirin (Aspirin 81 Mg) 81 mg PO DAILY [facility] Last Admin: 09/12/22 08:01 Dose: 81 mg Atorvastatin Calcium (Atorvastatin 40 Mg Tab) 40 mg PO HS [facility] Last Admin: 03/29/22 19:58 Dose: 40 mg Carvedilol (Carvedilol 12.5 Mg Tab) 12.5 mg PO BID-W/MEALS [facility] Last Admin: 03/30/22 08:01 Dose: 12.5 mg Cinacalcet (Cinacalcet 30 Mg Tab) 30 mg PO DAILY [facility] Last Admin: 03/30/22 08:01 Dose: 30 mg Fluticasone Propionate (Fluticasone 50mcg/[place] Nasal 16gm) 2 spray EA NOSTRIL BID PRN PRN Reason: Allergy Symptoms Gentamicin Sulfate (Gentamicin 0.1% Cream 15 Gm Tube) 1 applic TOPICAL TID [facility]; Protocol Last Admin: 03/30/22 08:02 Dose: 1 applic Peritoneal Dialysis Solution (Delflex With 1.5% Dextrose (2,500 Ml)) 37.5 g in 2,500 mls @ 0 mls/hr INTRAPERIT Q6HR [facility]; Protocol Last Admin: 03/30/22 11:47 Dose: 1 mls/hr Levothyroxine Sodium (Levothyroxine 88 Mcg Tab) 176 mcg PO DAILY@0630 [facility] Last Admin: 03/30/22 05:59 Dose: 176 mcg Naloxone HCl (Naloxone 0.4 Mg/Ml 1 Ml Vial) 0.2 mg IV Q2M PRN PRN Reason: Opioid Reversal PHYSICAL EXAMINATION: Patient is lying in the bed comfortably, no acute distress, awake alert and oriented.. HEENT: Normocephalic. Neck is supple. Pupils reactive. Nostrils clear. Oral cavity is moist. Neck reveals no JVD, carotid bruits, or thyromegaly. CHEST EXAMINATION: Trachea is central. Symmetrical expansion. Bibasilar diminished sounds. Minimal crackles. Lung garcia clear to auscultation and percussion. CARDIAC: Normal S1, S2 with no gallops. No murmurs ABDOMEN: Soft. Bowel sounds present. Nontender. No organomegaly. No abdominal bruits. Extremities: Bilateral trace edema. No clubbing or cyanosis Neurologically awake, alert, oriented x3 with well-coordinated movements. No focal deficits noted Skin: No rash or skin lesions. Psychiatric: Cooperative. Non-suicidal, Musculoskeletal: No joint swelling or deformity. Normal range of motion. Assessment: Near syncopal episode likely due to hypotension and volume depletion. Hyponatremia with sodium level 128 on admission ESRD on peritoneal dialysis Autosomal dominant polycystic kidney disease History of coronary disease post CABG in October 2021 Anemia of chronic disease hemoglobin 9.6 Chronic CHF with mildly reduced systolic dysfunction. Ejection fraction 45 to 50%. Hypothyroidism Hypertension Interstitial lung disease and recent history of pneumonia Prior history of smoking DVT prophylaxis Plan: Patient was given IV fluid bolus in the ER with improvement in blood pressure. Orthostatic vitals negative. Nephrology following and continued on peritoneal dialysis and sodium remains 125 again possible SIADH component. Encourage oral intake especially protein. Given another 250ml bolus of NS with no improvement. Continue fluid restrictions Currently undergoing peritoneal hemodialysis. Started on home blood pressure medications and monitor closely. Nephrology has seen the patient. urine studies ordered and pending. Anticipate discharge with improvement in sodium level in the next 24-48 hours. Patient reports he was recently placed on oral antibiotics for possible pneumonia at another hospital and has not completed. The impression and plan of care has been dictated by Tatyana Bianchi, Nurse Practitioner as directed. Dr. Iqra MD I have performed a history and examination and MDM of this patient, discussed the same with the dictator, and agree with the dictator's assessment and plan as written ,documented as a scribe. Based on total visit time, I have performed more than 50% of the visit. Objective - Vital Signs Vital signs: Vital Signs Temp 98.2 F 03/30/22 13:39 Pulse 94 03/30/22 13:39 Resp 17 03/30/22 13:39 BP 106/67 03/30/22 13:39 Pulse Ox 96 03/30/22 13:39 FiO2 Intake & Output 03/29/22 03/30/22 03/30/22 18:59 06:59 18:59 Output Total 300 Balance -300 Output: Urine 300 Other: Voiding Method Toilet - Labs CBC & Chem 7: 03/30/22 06:08 03/30/22 14:56 Labs: Abnormal Lab Results - Last 24 Hours (Table) 03/29/22 03/29/22 03/29/22 Range/Units 15:56 21:55 21:55 RBC (4.40-5.60) X 10*6/uL Hgb (13.0-17.0) g/dL Hct (39.6-50.0) % MCV (80.0-97.0) fL MCH (27.0-32.0) pg RDW (11.5-14.5) % MPV (9.5-12.2) fL Lymphocytes # (0.90-5.00) X 10*3/uL Eosinophils # (0.04-0.35) X 10*3/uL Sodium 125 L 125 L (137-145) mmol/L Chloride 88 L (98-107) mmol/L BUN 56 H (9-20) mg/dL Creatinine 11.48 H* (0.66-1.25) mg/dL Glucose 117 H (74-99) mg/dL Osmolality (280-301) mosm/kg Calcium 7.6 L (8.4-10.2) mg/dL TSH 0.049 L (0.465-4.680) mIU/L Free T4 2.29 H (0.78-2.19) ng/dL 03/30/22 03/30/22 03/30/22 Range/Units 06:08 06:08 06:08 RBC 2.47 L (4.40-5.60) X 10*6/uL Hgb 8.3 L (13.0-17.0) g/dL Hct 24.0 L (39.6-50.0) % MCV 97.2 H (80.0-97.0) fL MCH 33.6 H (27.0-32.0) pg RDW 14.7 H (11.5-14.5) % MPV 9.3 L (9.5-12.2) fL Lymphocytes # 0.88 L (0.90-5.00) X 10*3/uL Eosinophils # 2.42 H (0.04-0.35) X 10*3/uL Sodium 125 L (137-145) mmol/L Chloride 89 L (98-107) mmol/L BUN 54 H (9-20) mg/dL Creatinine 11.79 H* (0.66-1.25) mg/dL Glucose (74-99) mg/dL Osmolality 277 L (280-301) mosm/kg Calcium 8.0 L (8.4-10.2) mg/dL TSH (0.465-4.680) mIU/L Free T4 (0.78-2.19) ng/dL
[2022-03-31 02:36] LABS: Glucose,Whole Blood 118 mg/dL (70-110)
[2022-03-31] MEDS: DIALYSIS (PERIT 1.5%) 2,500 ML 37.5 G/2,500 ML BAG INTRAPERIT SCH ×4 (05:05→22:56)
[2022-03-31] MEDS: LEVOTHYROXINE 88 MCG TAB PO SCH (05:05)
[2022-03-31 06:24] LABS: African American GFR (CKD) 5 (>60 ml/min/1.73 sqM); Anion Gap 12 mmol/L; Blood Urea Nitrogen 50 mg/dL (9-20); Calcium 7.7 mg/dL (8.4-10.2); Carbon Dioxide 27 mmol/L (22-30); Chloride 87 mmol/L (98-107); Glucose 99 mg/dL (74-99); Non-African American GFR(CKD) 4 (>60 ml/min/1.73 sqM); Potassium 3.9 mmol/L (3.5-5.1); Sodium 126 mmol/L (137-145)
[2022-03-31] MEDS: ASPIRIN 81 MG PO SCH (08:23)
[2022-03-31] MEDS: carvediloL 12.5 MG TAB PO SCH ×2 (08:23→18:27)
[2022-03-31] MEDS: CINACALCET 30 MG TAB PO SCH (08:23)
[2022-03-31] MEDS: GENTAMICIN 0.1% CREAM 15 GM TUBE TOPICAL SCH ×3 (08:24→22:58)
[2022-03-31] MEDS ORDERED: SODIUM CHLORIDE 0.9% 500 ML 500 ML IV ONE (11:23)
--- NOTE | 2022-03-31 11:30 | P.PN ---
Subjective Patient is seen in follow-up for end-stage renal disease. He is maintained on peritoneal dialysis. No active complaints at this time. No vomiting or diarrhea. Oral intake is fair. Sodium level 126 today. Vital signs are stable. General: Awake. No acute distress. HEENT: Head exam is unremarkable. LUNGS: Breath sounds decreased. HEART: Rate and Rhythm are regular. ABDOMEN: Soft, no distention. EXTREMITITES: No edema. Objective - Vital Signs Vital signs: Vital Signs Temp 97.0 F L 03/31/22 09:00 Pulse 88 03/31/22 09:00 Resp 16 03/31/22 09:00 BP 102/65 03/31/22 09:00 Pulse Ox 97 03/31/22 09:00 FiO2 Intake & Output 03/30/22 03/31/22 03/31/22 18:59 06:59 18:59 Intake Total 240 Balance 240 Intake: Oral 240 Other: Voiding Method CAPD CAPD - Labs CBC & Chem 7: 03/30/22 06:08 03/31/22 06:03 Labs: Abnormal Lab Results - Last 24 Hours (Table) 03/30/22 03/30/22 03/31/22 Range/Units 06:08 14:56 02:34 Sodium 125 L (137-145) mmol/L Chloride (98-107) mmol/L BUN (9-20) mg/dL Creatinine (0.66-1.25) mg/dL POC Glucose (mg/dL) 118 H (70-110) mg/dL Calcium (8.4-10.2) mg/dL Transferrin 164.0 L (204.0-354.0) mg/dL Ferritin 1973.0 H (22.0-322.0) ng/mL 03/31/22 Range/Units 06:03 Sodium 126 L (137-145) mmol/L Chloride 87 L (98-107) mmol/L BUN 50 H (9-20) mg/dL Creatinine 11.29 H* (0.66-1.25) mg/dL POC Glucose (mg/dL) (70-110) mg/dL Calcium 7.7 L (8.4-10.2) mg/dL Transferrin (204.0-354.0) mg/dL Ferritin (22.0-322.0) ng/mL Assessment and Plan Plan: Assessment: 1. End-stage renal disease maintained on peritoneal dialysis. 2. Hyponatremia secondary to chronic kidney disease. Patient is not on any thiazide diuretics. Denies any history of malignancy. Possible component of SIADH from recent pneumonia. TSH low. 3. Chronic disease mineral bone disease maintained on Sensipar. 4. Recent pneumonia. Currently afebrile and white count normal. 5. Anemia of chronic kidney disease. Iron replete. 6. Near syncope. 7. Hypomagnesemia from poor intake. Plan: Maintain current PD exchanges. Maintain fluid restriction. Encourage protein intake. 500 mL normal saline bolus today. Add Aranesp. Follow-up urine osmolality and urine sodium is able to give sample. Check cortisol level. Add midodrine 5 mg 3 times daily. Hold for systolic blood pressure greater than 115. Replace magnesium. Check orthostatic vital signs
[2022-03-31] MEDS ORDERED: DARBEPOETIN ALFA 40 MCG/0.4 ML SYRINGE SQ SCH (12:00)
[2022-03-31] MEDS: MIDODRINE 5 MG TAB PO SCH ×2 (13:01→18:29)
[2022-03-31] MEDS: MAGNESIUM SULFATE-D5W PMX 1 GM in DEXTROSE/WATER 1 100ML.BAG IVPB SCH ×4 (13:01→14:01)
[2022-03-31] MEDS ORDERED: Magnesium Replacement Protocol 1 EACH MISC MISCELLANE PRN (13:45)
[2022-03-31] MEDS: ATORVASTATIN 40 MG TAB PO SCH (21:18)
--- NOTE | 2022-04-01 05:48 | P.PN ---
Subjective Progress Note Date: 03/31/22 Patient is a 56-year-old male with a known history of ESRD on peritoneal dialysis, autosomal dominant polycystic kidney disease, hypothyroidism, interstitial lung disease unclear history of smoking presents to ER with complaints of near syncopal episode at home. SBP was in the 80s when checked at home. Denies any complaints of chest pain. No loss of consciousness. No cough or sputum production. Denies any dysuria or hematuria. No fever no chills. Patient was seen at outside facility and was told he had hyponatremia. Patient was discharged home with dietary restrictions. Does have history of connected status post bypass graft. Chest x-ray showed there is evidence of of some congestive heart failure. There is probably underlying pulmonary fibrosis. EKG showed sinus rhythm with first-degree AV block. Laboratory data showed WBC 8.9 hemoglobin 9.6 and platelets 153 INR 0.9 Sodium 129 potassium 4.0 chloride 86 bicarb is 24 BUN 56 and creatinine 12.15 Blood sugar is 109 calcium 8.8 magnesium 1.7 total bilirubin 0.5 alk phos 100 03/30/2022 Patient is seen and evaluated in follow-up this morning and continued on peritoneal dialysis with nephrology following. Patient was given another 250ml bolus of NS with improvement in blood pressure although no improvement iin sodium as it remains 125 for the last three readings. Recommend follow up labs in the am with continued fluid restrictions. Patient reports cough with some phlegm production and was recently diagnosed with pneumonia at another hospital a few weeks back. Patient was sent home on oral abx and did not finish them yet. Chest xray not suggestive on pneumonia here. Patient is afebrile and on room air. Denies chest pain or palpitations. Encouraged oral intake and increased activity as tolerated. 03/31/2022 Patient is seen today and sodium is 127 now with nephrology following. Has given another fluid bolus. Magnesium is low today at 1.6 and being replaced. Recommend repeat labs. Continue with peritoneal dialysis and fluid restrictions. Will need to discuss with nephrology about discharge planning. Patient is afebrile and denies chest pain or shortness of breath. Reports occasional cough that has not changed. Encouraged increased activity as tolerated. Review of systems: Constitutional: No reports of fatigue, fever, or chills Cardiovascular: No reports of chest pain or palpitations Respiratory: No reports of shortness of breath ,reports cough GI: No reports of nausea, vomiting, or diarrhea : No reports of dysuria or retention Neurovascular: No reports of weakness or numbness All medications have been reviewed PHYSICAL EXAMINATION: Patient is lying in the bed comfortably asleep, but arousable, no acute distress, awake alert and oriented.. HEENT: Normocephalic. Neck is supple. Pupils reactive. Nostrils clear. Oral cavity is moist. Neck reveals no JVD, carotid bruits, or thyromegaly. CHEST EXAMINATION: Trachea is central. Symmetrical expansion. Bibasilar diminished sounds. Minimal crackles. Lung garcia clear to auscultation and percussion. CARDIAC: Normal S1, S2 with no gallops. No murmurs ABDOMEN: Soft. Bowel sounds present. Nontender. No organomegaly. No abdominal bruits. Extremities: Bilateral trace edema. No clubbing or cyanosis Neurologically awake, alert, oriented x3 with well-coordinated movements. No focal deficits noted Skin: No rash or skin lesions. Psychiatric: Cooperative. Non-suicidal, Musculoskeletal: No joint swelling or deformity. Normal range of motion. Assessment: Near syncopal episode likely due to hypotension and volume depletion. Hyponatremia with sodium level 128 on admission ESRD on peritoneal dialysis hypomagnesemia Autosomal dominant polycystic kidney disease History of coronary disease post CABG in October 2021 Anemia of chronic disease hemoglobin 9.6 Chronic CHF with mildly reduced systolic dysfunction. Ejection fraction 45 to 50%. Hypothyroidism Hypertension Interstitial lung disease and recent history of pneumonia Prior history of smoking DVT prophylaxis Plan: Patient was given IV fluid bolus in the ER with improvement in blood pressure. Orthostatic vitals negative. Nephrology following and continued on peritoneal dialysis and sodium remains 126 again possible SIADH component. Encourage oral intake especially protein. Given another 500ml bolus of NS with no improvement. Continue fluid restrictions Currently undergoing peritoneal hemodialysis. Started on home blood pressure medications and monitor closely. Nephrology has seen the patient. urine studies reviewed. Anticipate discharge with improvement in sodium level in the next 24 hours. Magnesium is 1.6 today and being replaced. Recommend repeat labs in the am The impression and plan of care has been dictated by Tatyana Bianchi, Nurse Practitioner as directed. Dr. Antonio MD I have performed a history and examination and MDM of this patient, discussed the same with the dictator, and agree with the dictator's assessment and plan as written ,documented as a scribe. Based on total visit time, I have performed more than 50% of the visit. Objective - Vital Signs Vital signs: Vital Signs Temp 97.6 F 03/31/22 12:35 Pulse 85 03/31/22 12:35 Resp 16 03/31/22 12:35 BP 105/65 03/31/22 12:35 Pulse Ox 96 03/31/22 12:35 FiO2 Intake & Output 03/30/22 03/31/22 03/31/22 18:59 06:59 18:59 Intake Total 240 Balance 240 Intake: Oral 240 Other: Voiding Method CAPD CAPD - Labs CBC & Chem 7: 03/30/22 06:08 03/31/22 06:03 Labs: Abnormal Lab Results - Last 24 Hours (Table) 03/30/22 03/30/22 03/31/22 Range/Units 06:08 14:56 02:34 Sodium 125 L (137-145) mmol/L Chloride (98-107) mmol/L BUN (9-20) mg/dL Creatinine (0.66-1.25) mg/dL POC Glucose (mg/dL) 118 H (70-110) mg/dL Calcium (8.4-10.2) mg/dL Transferrin 164.0 L (204.0-354.0) mg/dL Ferritin 1973.0 H (22.0-322.0) ng/mL 03/31/22 Range/Units 06:03 Sodium 126 L (137-145) mmol/L Chloride 87 L (98-107) mmol/L BUN 50 H (9-20) mg/dL Creatinine 11.29 H* (0.66-1.25) mg/dL POC Glucose (mg/dL) (70-110) mg/dL Calcium 7.7 L (8.4-10.2) mg/dL Transferrin (204.0-354.0) mg/dL Ferritin (22.0-322.0) ng/mL
[2022-04-01] MEDS: DIALYSIS (PERIT 1.5%) 2,500 ML 37.5 G/2,500 ML BAG INTRAPERIT SCH ×3 (05:58→17:43)
[2022-04-01] MEDS: LEVOTHYROXINE 88 MCG TAB PO SCH (05:59)
[2022-04-01] MEDS: carvediloL 12.5 MG TAB PO SCH ×2 (07:35→17:21)
[2022-04-01] MEDS: MIDODRINE 5 MG TAB PO SCH ×3 (07:35→17:35)
[2022-04-01] MEDS: ASPIRIN 81 MG PO SCH (10:09)
[2022-04-01] MEDS: CINACALCET 30 MG TAB PO SCH (10:09)
[2022-04-01] MEDS: GENTAMICIN 0.1% CREAM 15 GM TUBE TOPICAL SCH ×3 (10:09→20:59)
--- NOTE | 2022-04-01 10:42 | P.PN ---
Subjective Patient is seen in follow-up for end-stage renal disease. He is maintained on peritoneal dialysis. No active complaints at this time. No vomiting or diarrhea. Oral intake is fair. Morning labs pending. Vital signs are stable. General: Awake. No acute distress. HEENT: Head exam is unremarkable. LUNGS: Breath sounds decreased. HEART: Rate and Rhythm are regular. ABDOMEN: Soft, no distention. EXTREMITITES: No edema. Objective - Vital Signs Vital signs: Vital Signs Temp 98.4 F 04/01/22 06:57 Pulse 80 04/01/22 06:57 Resp 16 04/01/22 06:57 BP 112/75 04/01/22 06:57 Pulse Ox 95 04/01/22 06:57 FiO2 Intake & Output 03/31/22 04/01/22 04/01/22 18:59 06:59 18:59 Intake Total 920 296 Output Total 0 Balance 920 296 Intake: Oral 920 296 Output: Urine 0 Other: Voiding Method CAPD CAPD - Labs CBC & Chem 7: 03/30/22 06:08 03/31/22 06:03 Assessment and Plan Plan: Assessment: 1. End-stage renal disease maintained on peritoneal dialysis. 2. Hyponatremia secondary to chronic kidney disease. Patient is not on any thiazide diuretics. Denies any history of malignancy. Possible component of SIADH from recent pneumonia. TSH low. Cortisol level 6 which is on the lower side. Urine sodium 65 and urine osmolality 197. 3. Chronic disease mineral bone disease maintained on Sensipar. 4. Recent pneumonia. Currently afebrile and white count normal. 5. Anemia of chronic kidney disease. Iron replete. On Aranesp. 6. Near syncope. 7. Hypomagnesemia from poor intake. Replaced. Plan: Maintain current PD exchanges. Maintain fluid restriction. Encourage protein intake. Status post fluid boluses this admission. Add Cortef. Patient will need to follow-up with endocrinology outpatient for further workup for adrenal insufficiency. Maintain midodrine 5 mg 3 times daily. Hold for systolic blood pressure greater than 115. Check PTH related peptide. 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
[2022-04-01 10:56] LABS: Magnesium 2.1 mg/dL (1.5-2.4)
[2022-04-01 11:20] LABS: Anion Gap 10.8 mmol/L (10.00-18.00); BUN/Creat Ratio 3.89 Ratio (12.00-20.00); Blood Urea Nitrogen 45.9 mg/dL (9.0-27.0); Calcium 7.9 mg/dL (8.7-10.3); Carbon Dioxide 27.5 mmol/L (20.0-27.5); Non-African American GFR(CKD) 4.2 (60.0-200.0); Potassium 4.3 mmol/L (3.5-5.5)
[2022-04-01 11:42] LABS: African American GFR (CKD) 4.9 (60.0-200.0)
[2022-04-01] MEDS: HYDROCORTISONE 10 MG TAB PO SCH ×2 (11:52→20:56)
--- NOTE | 2022-04-01 17:54 | P.PN ---
Subjective Progress Note Date: 04/01/22 Patient is a 56-year-old male with a known history of ESRD on peritoneal dialysis, autosomal dominant polycystic kidney disease, hypothyroidism, interstitial lung disease unclear history of smoking presents to ER with complaints of near syncopal episode at home. SBP was in the 80s when checked at home. Denies any complaints of chest pain. No loss of consciousness. No cough or sputum production. Denies any dysuria or hematuria. No fever no chills. Patient was seen at outside facility and was told he had hyponatremia. Patient was discharged home with dietary restrictions. Does have history of connected status post bypass graft. Chest x-ray showed there is evidence of of some congestive heart failure. There is probably underlying pulmonary fibrosis. EKG showed sinus rhythm with first-degree AV block. Laboratory data showed WBC 8.9 hemoglobin 9.6 and platelets 153 INR 0.9 Sodium 129 potassium 4.0 chloride 86 bicarb is 24 BUN 56 and creatinine 12.15 Blood sugar is 109 calcium 8.8 magnesium 1.7 total bilirubin 0.5 alk phos 100 03/30/2022 Patient is seen and evaluated in follow-up this morning and continued on peritoneal dialysis with nephrology following. Patient was given another 250ml bolus of NS with improvement in blood pressure although no improvement iin sodium as it remains 125 for the last three readings. Recommend follow up labs in the am with continued fluid restrictions. Patient reports cough with some phlegm production and was recently diagnosed with pneumonia at another hospital a few weeks back. Patient was sent home on oral abx and did not finish them yet. Chest xray not suggestive on pneumonia here. Patient is afebrile and on room air. Denies chest pain or palpitations. Encouraged oral intake and increased activity as tolerated. 03/31/2022 Patient is seen today and sodium is 127 now with nephrology following. Has given another fluid bolus. Magnesium is low today at 1.6 and being replaced. Recommend repeat labs. Continue with peritoneal dialysis and fluid restrictions. Will need to discuss with nephrology about discharge planning. Patient is afebrile and denies chest pain or shortness of breath. Reports occasional cough that has not changed. Encouraged increased activity as tolerated. 04/01/2022 Patient seen and evaluated today with nephrology following continues to be on peritoneal dialysis exchanges and has been maintained on midodrine for hypotension. Agent blood pressures slightly improved in the 1 teens systolic. Patient denies any shortness of breath or chest pains. Sodium only slightly improved to 127 and magnesium after replacement is 2.1. Cortisol level is 6 and urine osmolality was 197 with a urine random sodium of 65. Patient is voiding. Patient is being started on Cortef and will discuss further with nephrology about discharge planning in the next 24 hours Review of systems: Constitutional: No reports of fatigue, fever, or chills Cardiovascular: No reports of chest pain or palpitations Respiratory: No reports of shortness of breath ,reports cough GI: No reports of nausea, vomiting, or diarrhea : No reports of dysuria or retention Neurovascular: No reports of weakness or numbness All medications have been reviewed PHYSICAL EXAMINATION: Patient is lying in the bed , no acute distress, awake alert and oriented.. HEENT: Normocephalic. Neck is supple. Pupils reactive. Nostrils clear. Oral cav ity is moist. Neck reveals no JVD, carotid bruits, or thyromegaly. CHEST EXAMINATION: Trachea is central. Symmetrical expansion. Bibasilar diminished sounds. Minimal crackles. Lung garcia clear to auscultation and percussion. CARDIAC: Normal S1, S2 with no gallops. No murmurs ABDOMEN: Soft. Bowel sounds present. Nontender. No organomegaly. No abdominal bruits. Extremities: Bilateral trace edema. No clubbing or cyanosis Neurologically awake, alert, oriented x3 with well-coordinated movements. No focal deficits noted Skin: No rash or skin lesions. Psychiatric: Cooperative. Non-suicidal, Musculoskeletal: No joint swelling or deformity. Normal range of motion. Assessment: Near syncopal episode likely due to hypotension and volume depletion. Hyponatremia with sodium level 128 on admission ESRD on peritoneal dialysis hypomagnesemia Autosomal dominant polycystic kidney disease History of coronary disease post CABG in October 2021 Anemia of chronic disease hemoglobin 9.6 Chronic CHF with mildly reduced systolic dysfunction. Ejection fraction 45 to 50%. Hypothyroidism Hypertension Interstitial lung disease and recent history of pneumonia Prior history of smoking DVT prophylaxis Plan: Patient was given IV fluid bolus in the ER with improvement in blood pressure. Orthostatic vitals negative. Patient was some hypotension although improving with midodrine and Cortef level this morning is low and being started on Cortef per nephrology Nephrology following and continued on peritoneal dialysis and sodium remains 127 again possible SIADH component. Encourage oral intake especially protein. Continue fluid restrictions Currently undergoing peritoneal hemodialysis. Started on home blood pressure medications and monitor closely. Nephrology has seen the patient. urine studies reviewed. Anticipate discharge with improvement in sodium level in the next 24 hours. Magnesium is 2.1 today after being replaced. Recommend repeat labs in the am The impression and plan of care has been dictated by Tatyana Bianchi, Nurse Practitioner as directed. Dr. Antonio MD I have performed a history and examination and MDM of this patient, discussed the same with the dictator, and agree with the dictator's assessment and plan as written ,documented as a scribe. Based on total visit time, I have performed more than 50% of the visit. Objective - Vital Signs Vital signs: Vital Signs Temp 98.4 F 04/01/22 06:57 Pulse 80 04/01/22 06:57 Resp 16 04/01/22 06:57 BP 112/75 04/01/22 06:57 Pulse Ox 95 04/01/22 06:57 FiO2 Intake & Output 03/31/22 04/01/22 04/01/22 18:59 06:59 18:59 Intake Total 920 Output Total 0 Balance 920 Intake: Oral 920 Output: Urine 0 Other: Voiding Method CAPD CAPD - Labs CBC & Chem 7: 03/30/22 06:08 04/01/22 06:09
[2022-04-01] MEDS: ATORVASTATIN 40 MG TAB PO SCH (20:56)
[2022-04-02] MEDS: DIALYSIS (PERIT 1.5%) 2,500 ML 37.5 G/2,500 ML BAG INTRAPERIT SCH ×4 (01:01→17:52)
[2022-04-02] MEDS: CALCIUM CARBONATE 500 MG CHEWABLE PO PRN (04:48)
[2022-04-02] MEDS: LEVOTHYROXINE 88 MCG TAB PO SCH (06:13)
[2022-04-02 07:00] LABS: African American GFR (CKD) 5 (>60 ml/min/1.73 sqM); Anion Gap 12 mmol/L; Blood Urea Nitrogen 48 mg/dL (9-20); Carbon Dioxide 27 mmol/L (22-30); Chloride 87 mmol/L (98-107); Glucose 77 mg/dL (74-99); Non-African American GFR(CKD) 4 (>60 ml/min/1.73 sqM); Potassium 3.8 mmol/L (3.5-5.1); Sodium 126 mmol/L (137-145)
[2022-04-02] MEDS: GENTAMICIN 0.1% CREAM 15 GM TUBE TOPICAL SCH ×3 (08:17→21:51)
[2022-04-02] MEDS: ASPIRIN 81 MG PO SCH (08:17)
[2022-04-02] MEDS: carvediloL 12.5 MG TAB PO SCH ×2 (08:17→17:52)
[2022-04-02] MEDS: MIDODRINE 5 MG TAB PO SCH ×3 (08:21→17:53)
[2022-04-02] MEDS: CINACALCET 30 MG TAB PO SCH (08:27)
[2022-04-02] MEDS: HYDROCORTISONE 10 MG TAB PO SCH ×2 (08:27→21:50)
[2022-04-02] MEDS ORDERED: IPRATROPIUM-ALBUTEROL 3 ML NEB INHALATION PRN (09:55)
--- NOTE | 2022-04-02 10:17 | P.PN ---
Subjective Patient is seen in follow-up for end-stage renal disease. He is maintained on peritoneal dialysis. No active complaints at this time. No vomiting or diarrhea. Oral intake is fair. Sodium level stable at 126. Blood pressure improved the Cortef. Vital signs are stable. General: Awake. No acute distress. HEENT: Head exam is unremarkable. LUNGS: Breath sounds decreased. HEART: Rate and Rhythm are regular. ABDOMEN: Soft, no distention. EXTREMITITES: No edema. Objective - Vital Signs Vital signs: Vital Signs Temp 98.2 F 04/02/22 06:00 Pulse 89 04/02/22 08:20 Resp 18 04/02/22 06:00 BP 120/74 04/02/22 08:20 Pulse Ox 96 04/02/22 06:00 FiO2 Intake & Output 04/01/22 04/02/22 04/02/22 18:59 06:59 18:59 Intake Total 476 400 Output Total 0 Balance 476 400 Intake: Oral 476 400 Output: Urine 0 Other: Voiding Method CAPD # Voids 2 - Labs CBC & Chem 7: 03/30/22 06:08 04/02/22 06:00 Labs: Abnormal Lab Results - Last 24 Hours (Table) 04/01/22 04/02/22 Range/Units 06:09 06:00 Sodium 127 L 126 L (135-145) mmol/L Chloride 89 L 87 L (96-109) mmol/L BUN 45.9 H 48 H (9.0-27.0) mg/dL Creatinine 11.8 H* 11.22 H* (0.6-1.5) mg/dL Est GFR (CKD-EPI)AfAm 4.9 L (60.0-200.0) Est GFR (CKD-EPI)NonAf 4.2 L (60.0-200.0) BUN/Creatinine Ratio 3.89 L (12.00-20.00) Ratio Calcium 7.9 L 8.0 L (8.7-10.3) mg/dL Assessment and Plan Plan: Assessment: 1. End-stage renal disease maintained on peritoneal dialysis. 2. Hyponatremia secondary to chronic kidney disease. Patient is not on any thiazide diuretics. Denies any history of malignancy. Possible component of SIADH from recent pneumonia. TSH low. Cortisol level 6 which is on the lower side. Urine sodium 65 and urine osmolality 197. 3. Chronic disease mineral bone disease maintained on Sensipar. 4. Recent pneumonia. Currently afebrile and white count normal. 5. Anemia of chronic kidney disease. Iron replete. On Aranesp. 6. Near syncope. 7. Hypomagnesemia from poor intake. Replaced. Improved. Plan: Maintain current PD exchanges. Maintain fluid restriction. Encourage protein intake. Status post fluid boluses this admission. Maintain Cortef. Patient will need to follow-up with endocrinology outpatient for further workup for adrenal insufficiency. Maintain midodrine 5 mg 3 times daily. Hold for systolic blood pressure greater than 115. Follow-up PTH related peptide. 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
--- NOTE | 2022-04-02 10:30 | XR ---
EXAMINATION TYPE: XR chest 1V portable DATE OF EXAM: 04/02/2022 Comparison: 03/28/2022 Clinical History: 56-year-old male short of breath, cough Findings: Median sternotomy wires are present. Heart mildly enlarged. Post-CABG clips in mediastinum. Diffuse i nterstitial opacities. Continued patchy peripheral opacities, similar to slightly increased. Continue d slight worsening small bilateral pleural effusions. Impression: Diffuse interstitial changes, mild cardiomegaly, and slight worsening in peripheral airspace disease. Similar to slightly increasing small effusions. Correlate for CHF with slight worsening pulmonary ed malik versus atypical pneumonias or interstitial/eosinophilic pneumonitis given peripheral distribution .
[2022-04-02] MEDS: IPRATROPIUM-ALBUTEROL 3 ML NEB INHALATION SCH ×3 (11:13→19:29)
--- NOTE | 2022-04-02 11:59 | P.CNPUL ---
History of Present Illness Consult date: 04/02/22 Requesting physician: Fabrizio Escalona Reason for consult: dyspnea, hypoxemia, pulmonary fibrosis, abnormal CXR/CT Chief complaint: Idiopathic pulmonary fibrosis. History of present illness: Pulmonary consult dated 04/02/2022. 56-year-old male who was initially evaluated on March 28, in the ER, for near syncope. The patient apparently became very lightheaded, and came into the evaluation, via EMS for evaluation. The patient does have a history of end- stage renal disease. Also, the patient was seen at an outside facility for a low sodium. I was asked to see the patient, because apparently back in October when he had open heart surgery, two-vessel bypass, a left lung biopsy was done, and he was told that he had idiopathic pulmonary fibrosis. Currently, he's on room air. Is not receiving any IV fluids. The patient apparently has seen a lung doctor in the past, not recently, and maybe one at the [facility] [place]. The patient states that when he exerts himself, such as on a treadmill, his saturations drop. He did smoke a pack a day for 15 years. He does not smoke currently. I told the patient that he doesn't need to see a machine setter supervisor in the future, for periodic pulmonary function testing, high resolution CT scans, 6 minute walk distances, examinations, etc. His most recent lab work shows a sodium 126, potassium 3.8, chloride 87, CO2 27, anion gap 12, BUN 48, and creatinine 11.22. His calcium is 8. His chest x-ray showed diffuse interstitial changes, mild cardiomegaly, and peripheral airspace disease. Review of Systems REVIEW OF SYSTEMS: CONSTITUTIONAL: [Negative.] NEUROLOGIC: Near syncope, lightheadedness. HEENT: [ Negative.] CARDIAC: [Negative.] PULMONARY: Shortness of breath on exertion, chronic cough, and low saturations with exertion. GI: [Negative.] : [Negative.] RHEUMATOLOGIC: [ Negative.] IMMUNOLOGIC: [ Negative.] ENDOCRINE: [Negative. ] DERMATOLOGIC: [Negative.] Past Medical History Past Medical History: Renal Disease, Thyroid Disorder Additional Past Medical History / Comment(s): Dialysis, interstitial lung disease History of Any Multi-Drug Resistant Organisms: None Reported Past Surgical History: Orthopedic Surgery Additional Past Surgical History / Comment(s): AV fistula left arm. bilateral shoulders. right heel. lasik eye surgery. dialysis port abdomen, COLONOSCOPY Past Anesthesia/Blood Transfusion Reactions: No Reported Reaction Past Psychological History: No Psychological Hx Reported Smoking Status: Former smoker Past Alcohol Use History: None Reported Past Drug Use History: None Reported - Past Family History Father Family Medical History: Cancer Medications and Allergies Home Medications Medication Instructions Recorded Confirmed Type Cinacalcet HCl 30 mg PO DAILY 05/14/20 03/28/22 History Gentamicin Sulfate [Gentamicin 1 applic TOPICAL DAILY PRN 02/10/21 03/28/22 History Sulfate 0.1% Oint.] Magnesium Glycinate 100mg 100 mg PO BID 02/10/21 03/28/22 History Velphoro 500mg 1,000 mg PO TID-W/MEALS 02/10/21 03/28/22 History Velphoro 500mg 500 mg PO BID PRN 02/10/21 03/28/22 History Albuterol Inhaler [Ventolin Hfa 2 puff INHALATION RT-QID PRN 03/28/22 03/28/22 History Inhaler] Aspirin EC [Ecotrin Low Dose] 81 mg PO DAILY 03/28/22 03/28/22 History Atorvastatin [Lipitor] 40 mg PO HS 03/28/22 03/28/22 History Azithromycin [Zithromax] See Taper PO DIRECTED 03/28/22 03/28/22 History Calcium Carbonate 1,500 mg PO BID 03/28/22 03/28/22 History Fluticasone Nasal [place] [Flonase 1 - 2 spray EA NOSTRIL BID PRN 03/28/22 03/28/22 History Nasal [place]] Levothyroxine Sodium [Synthroid] 175 mcg PO DAILY 03/28/22 03/28/22 History Cristal-Aris 1 tab PO DAILY 03/28/22 03/28/22 History carvediloL [Coreg] 12.5 mg PO BID-W/MEALS 03/28/22 03/28/22 History Allergies Allergy/AdvReac Type Severity Reaction Status Date / Time No Known Allergies Allergy Verified 03/28/22 22:01 Physical Exam Osteopathic Statement: *. No significant issues noted on an osteopathic structural exam other than those noted in the History and Physical/Consult. Vitals: Vital Signs Temp Pulse Pulse Resp BP BP Pulse Ox 04/02/22 11:21 76 09/15/22 11:16 76 04/02/22 08:20 89 120/74 04/02/22 06:00 98.2 F 67 18 119/70 96 04/02/22 05:00 98.4 F 94 16 131/78 96 04/02/22 01:00 98.3 F 78 18 118/74 96 04/01/22 18:07 97.5 F L 80 18 115/74 96 04/01/22 18:00 98.2 F 81 16 114/71 97 04/01/22 12:30 98.4 F 80 78 16 112/75 119/75 95 Intake and Output 04/01/22 04/02/22 04/02/22 22:59 06:59 14:59 Intake Total 400 Output Total 0 Balance 400 Intake: Oral 400 Output: Urine 0 Other: Voiding Method CAPD # Voids 2 No acute distress, oriented 3. No respiratory distress, or conversational dyspnea. Currently on room air. HEENT examination is grossly unremarkable. Neck supple. Full range of motion. No adenopathy thyromegaly or neck vein distention. Cardiovascular examination reveals regular rhythm rate. S1-S2 normal. No S3 or S4. No discernible murmur noted. Heart rate 76 bpm. Lungs reveal bibasilar Velcro crackles. Breath sounds equal bilaterally. He is not restricted in his breathing. No wheezes or rhonchi. Room air saturation 96%. Abdomen soft bowel sounds are heard. No masses or tenderness. Extremities are intact. No cyanosis clubbing or edema. Skin is without rash or lesion. Neurologic examination is brief but nonfocal. Results - Laboratory Findings CBC and BMP: 03/30/22 06:08 04/02/22 06:00 PT/INR, D-dimer PT 10.4 sec (9.0-12.0) 03/28/22 19:09 INR 0.9 (<1.2) 03/28/22 19:09 Abnormal lab findings: Abnormal Labs 03/28/22 03/28/22 03/28/22 19:09 19:09 19:09 RBC 2.84 L Hgb 9.6 L Hct 27.8 L MCV MCH RDW Plt Count MPV Lymphocytes # 0.7 L Eosinophils # 2.3 H APTT 16.3 L Sodium 128 L Chloride 86 L BUN 56 H Creatinine 12.15 H* Est GFR (CKD-EPI)AfAm Est GFR (CKD-EPI)NonAf BUN/Creatinine Ratio Glucose 109 H POC Glucose (mg/dL) Osmolality Calcium Transferrin Ferritin Total Protein Albumin TSH Free T4 03/29/22 03/29/22 03/29/22 06:04 06:04 15:56 RBC 2.31 L Hgb 7.8 L Hct 22.3 L MCV MCH 33.8 H RDW 14.6 H Plt Count 135 L MPV 9.2 L Lymphocytes # 0.73 L Eosinophils # 1.83 H APTT Sodium 130 L 125 L Chloride 91 L 88 L BUN 50.1 H 56 H Creatinine 11.8 H* 11.48 H* Est GFR (CKD-EPI)AfAm 4.9 L Est GFR (CKD-EPI)NonAf 4.2 L BUN/Creatinine Ratio 4.25 L Glucose 117 H POC Glucose (mg/dL) Osmolality Calcium 8.0 L 7.6 L Transferrin Ferritin Total Protein 5.1 L Albumin 3.2 L TSH Free T4 03/29/22 03/29/22 03/30/22 21:55 21:55 06:08 RBC Hgb Hct MCV MCH RDW Plt Count MPV Lymphocytes # Eosinophils # APTT Sodium 125 L 125 L Chloride 89 L BUN 54 H Creatinine 11.79 H* Est GFR (CKD-EPI)AfAm Est GFR (CKD-EPI)NonAf BUN/Creatinine Ratio Glucose POC Glucose (mg/dL) Osmolality Calcium 8.0 L Transferrin Ferritin Total Protein Albumin TSH 0.049 L Free T4 2.29 H 03/30/22 03/30/22 03/30/22 06:08 06:08 14:56 RBC 2.47 L Hgb 8.3 L Hct 24.0 L MCV 97.2 H MCH 33.6 H RDW 14.7 H Plt Count MPV 9.3 L Lymphocytes # 0.88 L Eosinophils # 2.42 H APTT Sodium 125 L Chloride BUN Creatinine Est GFR (CKD-EPI)AfAm Est GFR (CKD-EPI)NonAf BUN/Creatinine Ratio Glucose POC Glucose (mg/dL) Osmolality 277 L Calcium Transferrin 164.0 L Ferritin 1973.0 H Total Protein Albumin TSH Free T4 03/31/22 03/31/22 04/01/22 02:34 06:03 06:09 RBC Hgb Hct MCV MCH RDW Plt Count MPV Lymphocytes # Eosinophils # APTT Sodium 126 L 127 L Chloride 87 L 89 L BUN 50 H 45.9 H Creatinine 11.29 H* 11.8 H* Est GFR (CKD-EPI)AfAm 4.9 L Est GFR (CKD-EPI)NonAf 4.2 L BUN/Creatinine Ratio 3.89 L Glucose POC Glucose (mg/dL) 118 H Osmolality Calcium 7.7 L 7.9 L Transferrin Ferritin Total Protein Albumin TSH Free T4 04/02/22 06:00 RBC Hgb Hct MCV MCH RDW Plt Count MPV Lymphocytes # Eosinophils # APTT Sodium 126 L Chloride 87 L BUN 48 H Creatinine 11.22 H* Est GFR (CKD-EPI)AfAm Est GFR (CKD-EPI)NonAf BUN/Creatinine Ratio Glucose POC Glucose (mg/dL) Osmolality Calcium 8.0 L Transferrin Ferritin Total Protein Albumin TSH Free T4 - Diagnostic Findings Chest x-ray: image reviewed Assessment and Plan Assessment: Biopsy-proven, idiopathic pulmonary fibrosis, October 2021. Recent two-vessel bypass grafting, October 2021. End-stage renal disease. Hyponatremia. Previous history of tobacco use, one pack a day, for 15 years. Plan: Plan dated 04/02/2022. Nothing from the pulmonary standpoint, to do, while the patient is in the hospital. The patient does need to follow up with a lung doctor once discharged. He will need a 6 minute walk distance, complete pulmonary function testing, and if not already done, a high resolution computed tomography scan. The patient will need to be followed longitudinally, to determine whether or not his disease progresses slowly, or more rapidly. I told him I be happy to see him here in town, we could go back to his machine setter supervisor at the [facility] [place]. His examination is consistent with interstitial lung disease. Time with Patient: Greater than 30
[2022-04-02 17:00] VITALS: BMI 29.0
[2022-04-02] MEDS: ATORVASTATIN 40 MG TAB PO SCH (21:50)
[2022-04-03] MEDS: DIALYSIS (PERIT 1.5%) 2,500 ML 37.5 G/2,500 ML BAG INTRAPERIT SCH ×5 (00:24→23:30)
[2022-04-03] MEDS: LEVOTHYROXINE 88 MCG TAB PO SCH (05:55)
[2022-04-03] MEDS: IPRATROPIUM-ALBUTEROL 3 ML NEB INHALATION SCH ×4 (07:44→20:54)
[2022-04-03] MEDS: CINACALCET 30 MG TAB PO SCH (08:35)
[2022-04-03] MEDS: HYDROCORTISONE 10 MG TAB PO SCH ×2 (08:35→20:43)
[2022-04-03] MEDS: ASPIRIN 81 MG PO SCH (08:35)
[2022-04-03] MEDS: carvediloL 12.5 MG TAB PO SCH ×2 (08:35→18:05)
[2022-04-03] MEDS: MIDODRINE 5 MG TAB PO SCH ×3 (08:36→18:05)
--- NOTE | 2022-04-03 09:32 | P.PN ---
Subjective Progress Note Date: 04/02/22 Patient is a 56-year-old male with a known history of ESRD on peritoneal dialysis, autosomal dominant polycystic kidney disease, hypothyroidism, interstitial lung disease unclear history of smoking presents to ER with complaints of near syncopal episode at home. SBP was in the 80s when checked at home. Denies any complaints of chest pain. No loss of consciousness. No cough or sputum production. Denies any dysuria or hematuria. No fever no chills. Patient was seen at outside facility and was told he had hyponatremia. Patient was discharged home with dietary restrictions. Does have history of connected status post bypass graft. Chest x-ray showed there is evidence of of some congestive heart failure. There is probably underlying pulmonary fibrosis. EKG showed sinus rhythm with first-degree AV block. Laboratory data showed WBC 8.9 hemoglobin 9.6 and platelets 153 INR 0.9 Sodium 129 potassium 4.0 chloride 86 bicarb is 24 BUN 56 and creatinine 12.15 Blood sugar is 109 calcium 8.8 magnesium 1.7 total bilirubin 0.5 alk phos 100 03/30/2022 Patient is seen and evaluated in follow-up this morning and continued on peritoneal dialysis with nephrology following. Patient was given another 250ml bolus of NS with improvement in blood pressure although no improvement iin sodium as it remains 125 for the last three readings. Recommend follow up labs in the am with continued fluid restrictions. Patient reports cough with some phlegm production and was recently diagnosed with pneumonia at another hospital a few weeks back. Patient was sent home on oral abx and did not finish them yet. Chest xray not suggestive on pneumonia here. Patient is afebrile and on room air. Denies chest pain or palpitations. Encouraged oral intake and increased activity as tolerated. 03/31/2022 Patient is seen today and sodium is 127 now with nephrology following. Has given another fluid bolus. Magnesium is low today at 1.6 and being replaced. Recommend repeat labs. Continue with peritoneal dialysis and fluid restrictions. Will need to discuss with nephrology about discharge planning. Patient is afebrile and denies chest pain or shortness of breath. Reports occasional cough that has not changed. Encouraged increased activity as tolerated. 04/01/2022 Patient seen and evaluated today with nephrology following continues to be on peritoneal dialysis exchanges and has been maintained on midodrine for hypotension. Agent blood pressures slightly improved in the 1 teens systolic. Patient denies any shortness of breath or chest pains. Sodium only slightly improved to 127 and magnesium after replacement is 2.1. Cortisol level is 6 and urine osmolality was 197 with a urine random sodium of 65. Patient is voiding. Patient is being started on Cortef and will discuss further with nephrology about discharge planning in the next 24 hours 04/02/2022 Patient is seen and evaluated in follow-up this morning with nephrology following. Patient continues to report some cough with lung tightness and will add nebulizers as patient was recently told he had pneumonia although chest x- ray here not suggestive of pneumonia. Patient recently had a CABG at [facility] and had a biopsy at that point and was diagnosed with idiopathic pulmonary fibrosis. Patient has not followed up with a lung specialist. Will consult pulmonary and appreciate input and recommendations and discussed with the patient that he would likely need to follow-up outpatient for further testing and continuity of care. Patient is agreeable with this. Patient's sodium continues to be low at 126 and maintain on fluid restrictions and continues on peritoneal dialysis with nephrology following closely. Patient was started on Cortef along with midodrine and blood pressures have improved. We'll obtain a chest x-ray as well. [facility] refer him outpatient to other resources. Patient is afebrile and there is no white count. Patient denies chest pain or palpitations. Patient denies nausea or vomiting and tolerating diet. Review of systems: Constitutional: No reports of fatigue, fever, or chills Cardiovascular: No reports of chest pain or palpitations Respiratory: No reports of shortness of breath ,reports continued cough GI: No reports of nausea, vomiting, or diarrhea : No reports of dysuria or retention Neurovascular: No reports of weakness or numbness All medications have been reviewed PHYSICAL EXAMINATION: Patient is lying in the bed , no acute distress, awake alert and oriented.. HEENT: Normocephalic. Neck is supple. Pupils reactive. Nostrils clear. Oral cavity is moist. Neck reveals no JVD, carotid bruits, or thyromegaly. CHEST EXAMINATION: Trachea is central. Symmetrical expansion. Bibasilar diminished sounds. Minimal crackles. Lung garcia clear to auscultation and percussion. CARDIAC: Normal S1, S2 with no gallops. No murmurs ABDOMEN: Soft. Bowel sounds present. Nontender. No organomegaly. No abdominal bruits. Extremities: Bilateral trace edema. No clubbing or cyanosis Neurologically awake, alert, oriented x3 with well-coordinated movements. No focal deficits noted Skin: No rash or skin lesions. Psychiatric: Cooperative. Non-suicidal, Musculoskeletal: No joint swelling or deformity. Normal range of motion. Assessment: Near syncopal episode likely due to hypotension and volume depletion. Hyponatremia with sodium level 128 on admission ESRD on peritoneal dialysis hypomagnesemia Autosomal dominant polycystic kidney disease History of coronary disease post CABG in October 2021 Anemia of chronic disease hemoglobin 9.6 Chronic CHF with mildly reduced systolic dysfunction. Ejection fraction 45 to 50%. Hypothyroidism Hypertension Interstitial lung disease and recent history of pneumonia, recent diagnosis of idiopathic pulmonary fibrosis with biopsy during CABG Prior history of smoking DVT prophylaxis Plan: Patient is being followed by nephrology and continues to have low sodium most likely a component of SIADH. Cortisol levels were low and started on Cortef and blood pressures have improved and is continued on midodrine as needed. Patient continues with peritoneal dialysis exchanges and continues to be in volume overload. Patient is on fluid restrictions. Patient continues to report some cough and was diagnosed with idiopathic pulmonary fibrosis during biopsy during his CABG earlier this year at [facility] and has not followed up with a allergy specialist. Will consult pulmonary and appreciate input and recommendations and suggested the patient follow-up outpatient as well. Patient is agreeable with this. Chest x-ray was obtained showing diffuse interstitial changes mild cardiomegaly slight worsening in the peripheral airspace disease similar to slightly increased small effusions correlate for CHF with slight worsening of pulmonary edema versus atypical interstitial pneumonitis given his peripheral distribution. Patient is afebrile with no white count most likely secondary to his pulmonary fibrosis. Will add DuoNeb treatments and follow-up with the patient. We'll also consult dietitian about diet and protein intake and recommend continue fluid restrictions. Follow-up labs in the a.m. with possible discharge in 24 hours. The impression and plan of care has been dictated by Tatyana Bianchi, Nurse Practitioner as directed. Dr. Antonio MD I have performed a history and examination and MDM of this patient, discussed the same with the dictator, and agree with the dictator's assessment and plan as written ,documented as a scribe. Based on total visit time, I have performed more than 50% of the visit. Objective - Vital Signs Vital signs: Vital Signs Temp 98.2 F 04/02/22 06:00 Pulse 89 04/02/22 08:20 Resp 18 04/02/22 06:00 BP 120/74 04/02/22 08:20 Pulse Ox 96 04/02/22 06:00 FiO2 Intake & Output 04/01/22 04/02/22 04/02/22 18:59 06:59 18:59 Intake Total 476 400 Output Total 0 Balance 476 400 Intake: Oral 476 400 Output: Urine 0 Other: Voiding Method CAPD # Voids 2 - Labs CBC & Chem 7: 03/30/22 06:08 04/02/22 06:00 Labs: Abnormal Lab Results - Last 24 Hours (Table) 04/01/22 04/02/22 Range/Units 06:09 06:00 Sodium 127 L 126 L (135-145) mmol/L Chloride 89 L 87 L (96-109) mmol/L BUN 45.9 H 48 H (9.0-27.0) mg/dL Creatinine 11.8 H* 11.22 H* (0.6-1.5) mg/dL Est GFR (CKD-EPI)AfAm 4.9 L (60.0-200.0) Est GFR (CKD-EPI)NonAf 4.2 L (60.0-200.0) BUN/Creatinine Ratio 3.89 L (12.00-20.00) Ratio Calcium 7.9 L 8.0 L (8.7-10.3) mg/dL
[2022-04-03 10:04] LABS: Anisocytosis Slight; Basophils % (A) 0 %; Eosinophils % (A) 20 %; HCT 24.8 % (39.0-53.0); HGB 8.4 gm/dL (13.0-17.5); Lymphocytes # (A) 0.9 k/uL (1.0-4.8); Lymphocytes % (A) 9 %; MCH 34.1 pg (25.0-35.0); MCHC 33.8 g/dL (31.0-37.0); Macrocytosis Slight; Monocytes # (A) 0.6 k/uL (0-1.0); Monocytes % (A) 6 %; Neutrophils # (A) 6.2 k/uL (1.3-7.7); Neutrophils % (A) 64 %; Platelet Count 162 k/uL (150-450); RBC 2.46 m/uL (4.30-5.90); RDW 16.2 % (11.5-15.5); WBC 9.8 k/uL (3.8-10.6)
[2022-04-03 10:27] LABS: ALT 23 U/L (4-49); AST 25 U/L (17-59); African American GFR (CKD) 5 (>60 ml/min/1.73 sqM); Albumin 3.1 g/dL (3.5-5.0); Albumin/Globulin Ratio 1.4; Alkaline Phosphatase 83 U/L (38-126); Anion Gap 11 mmol/L; Blood Urea Nitrogen 48 mg/dL (9-20); Calcium 7.8 mg/dL (8.4-10.2); Carbon Dioxide 28 mmol/L (22-30); Chloride 86 mmol/L (98-107); Globulin 2.2 g/dL; Glucose 107 mg/dL (74-99); Non-African American GFR(CKD) 4 (>60 ml/min/1.73 sqM); Potassium 3.6 mmol/L (3.5-5.1); Sodium 125 mmol/L (137-145); Total Bilirubin 0.4 mg/dL (0.2-1.3); Total Protein 5.3 g/dL (6.3-8.2)
[2022-04-03] MEDS ORDERED: SODIUM CHLORIDE 0.9% 500 ML 500 ML IV ONE (11:37)
[2022-04-03] MEDS ORDERED: POTASSIUM CHLORIDE ER 20 MEQ TAB.ER PO STA (11:38)
--- NOTE | 2022-04-03 11:38 | P.PN ---
Subjective Patient is seen in follow-up for end-stage renal disease. He is maintained on peritoneal dialysis. No active complaints at this time. No vomiting or diarrhea. Oral intake is fair. Sodium level 125 today. Blood pressure stable. Patient has no active complaints. Vital signs are stable. General: Awake. No acute distress. HEENT: Head exam is unremarkable. LUNGS: Breath sounds decreased. HEART: Rate and Rhythm are regular. ABDOMEN: Soft, no distention. EXTREMITITES: No edema. Objective - Vital Signs Vital signs: Vital Signs Temp 97.7 F 04/03/22 11:25 Pulse 86 04/03/22 11:25 Resp 16 04/03/22 11:25 BP 117/75 04/03/22 11:25 Pulse Ox 96 04/03/22 07:44 FiO2 Intake & Output 04/02/22 04/03/22 04/03/22 18:59 06:59 18:59 Intake Total 620 730 340 Output Total 0 Balance 620 730 340 Weight 83.915 kg Intake: Oral 620 730 340 Output: Urine 0 Other: Voiding Method CAPD CAPD # Voids 0 - Labs CBC & Chem 7: 04/03/22 09:46 04/03/22 09:46 Labs: Abnormal Lab Results - Last 24 Hours (Table) 04/02/22 04/03/22 04/03/22 Range/Units 11:18 09:46 09:46 RBC 2.46 L (4.30-5.90) m/uL Hgb 8.4 L (13.0-17.5) gm/dL Hct 24.8 L (39.0-53.0) % MCV 101.0 H (80.0-100.0) fL RDW 16.2 H (11.5-15.5) % Lymphocytes # 0.9 L (1.0-4.8) k/uL Eosinophils # 2.0 H (0-0.7) k/uL Sodium 125 L (137-145) mmol/L Chloride 86 L (98-107) mmol/L BUN 48 H (9-20) mg/dL Creatinine 11.37 H* (0.66-1.25) mg/dL Glucose 107 H (74-99) mg/dL Calcium 7.8 L (8.4-10.2) mg/dL Total Protein 5.3 L (6.3-8.2) g/dL Albumin 3.1 L (3.5-5.0) g/dL Procalcitonin 0.74 H (0.02-0.09) ng/mL Assessment and Plan Plan: Assessment: 1. End-stage renal disease maintained on peritoneal dialysis. 2. Hyponatremia secondary to chronic kidney disease. Patient is not on any thiazide diuretics. Denies any history of malignancy. Possible component of SIADH from recent pneumonia. TSH low. Cortisol level 6 which is on the lower side. Urine sodium 65 and urine osmolality 197. 3. Chronic disease mineral bone disease maintained on Sensipar. 4. Recent pneumonia. Currently afebrile and white count normal. 5. Anemia of chronic kidney disease. Iron replete. On Aranesp. 6. Near syncope. 7. Hypomagnesemia from poor intake. Replaced. Improved. Plan: Maintain current PD exchanges. Maintain fluid restriction. Samsca 15 mg once today. Encourage protein intake. Status post fluid boluses this admission - will give another 500 mL bolus of normal saline today. Maintain Cortef - increase dose. Patient will need to follow-up with endocrinology outpatient for further workup for adrenal insufficiency. Maintain midodrine 5 mg 3 times daily. Hold for systolic blood pressure greater than 115. Follow-up PTH related peptide. Patient is advised to follow up with his station worker within 1 week.
[2022-04-03] MEDS: GENTAMICIN 0.1% CREAM 15 GM TUBE TOPICAL SCH ×3 (11:40→20:43)
[2022-04-03] MEDS: CALCIUM CARBONATE 500 MG CHEWABLE PO PRN (11:40)
--- NOTE | 2022-04-03 11:54 | P.PN ---
Subjective Progress Note Date: 04/03/22 Principal diagnosis: Idiopathic pulmonary fibrosis. Pulmonary consult dated 04/02/2022. 56-year-old male who was initially evaluated on March 28, in the ER, for near syncope. The patient apparently became very lightheaded, and came into the evaluation, via EMS for evaluation. The patient does have a history of end- stage renal disease. Also, the patient was seen at an outside facility for a low sodium. I was asked to see the patient, because apparently back in October when he had open heart surgery, two-vessel bypass, a left lung biopsy was done, and he was told that he had idiopathic pulmonary fibrosis. Currently, he's on room air. Is not receiving any IV fluids. The patient apparently has seen a lung doctor in the past, not recently, and maybe one at the [facility] and [place]. The patient states that when he exerts himself, such as on a treadmill, his saturations drop. He did smoke a pack a day for 15 years. He does not smoke currently. I told the patient that he doesn't need to see a foundry tender in the future, for periodic pulmonary function testing, high resolution CT scans, 6 minute walk distances, examinations, etc. His most recent lab work shows a sodium 126, potassium 3.8, chloride 87, CO2 27, anion gap 12, BUN 48, and creatinine 11.22. His calcium is 8. His chest x-ray showed diffuse interstitial changes, mild cardiomegaly, and peripheral airspace disease. Progress note dated 04/03/2022. 56-year-old male that I saw on consultation yesterday. He was initially evaluated for syncope/near-syncope in the emergency room. It turns out that he recently had a lung biopsy, when he had a two-vessel bypass surgery, which revealed evidence of idiopathic pulmonary fibrosis. I told him that he would have to see me in the office, as he will need complete pulmonary function testing, high resolution computed tomography scan, and 6 minute walk distance. We also talked to the various medications which might be available to him, to control his disease. White count 9.8, hemoglobin 8.4, hematocrit 24.8, and platelet count 262,000. Sodium 125, potassium 3.6, chloride 86, CO2 28, BUN 48, creatinine 11.4. Pro-calcitonin level is 0.74. N-terminal proBNP is 19,300. Objective - Vital Signs Vital signs: Vital Signs Temp 97.7 F 04/03/22 11:25 Pulse 86 04/03/22 11:25 Resp 16 04/03/22 11:25 BP 117/75 04/03/22 11:25 Pulse Ox 96 04/03/22 07:44 FiO2 Intake & Output 04/02/22 04/03/22 04/03/22 18:59 06:59 18:59 Intake Total 620 730 340 Output Total 0 Balance 620 730 340 Weight 83.915 kg Intake: Oral 620 730 340 Output: Urine 0 Other: Voiding Method CAPD CAPD # Voids 0 - Exam No acute distress, oriented 3. No respiratory distress, or conversational dyspnea. Currently on room air. HEENT examination is grossly unremarkable. Neck supple. Full range of motion. No adenopathy thyromegaly or neck vein distention. Cardiovascular examination reveals regular rhythm rate. S1-S2 normal. No S3 or S4. No discernible murmur noted. Heart rate 86 bpm. Lungs reveal bibasilar Velcro crackles. Breath sounds equal bilaterally. He is not restricted in his breathing. No wheezes or rhonchi. Room air saturation 96%. Abdomen soft bowel sounds are heard. No masses or tenderness. Extremities are intact. No cyanosis clubbing or edema. Skin is without rash or lesion. Neurologic examination is brief but nonfocal. - Labs CBC & Chem 7: 04/03/22 09:46 04/03/22 09:46 Labs: Abnormal Lab Results - Last 24 Hours (Table) 04/02/22 04/03/22 04/03/22 Range/Units 11:18 09:46 09:46 RBC 2.46 L (4.30-5.90) m/uL Hgb 8.4 L (13.0-17.5) gm/dL Hct 24.8 L (39.0-53.0) % MCV 101.0 H (80.0-100.0) fL RDW 16.2 H (11.5-15.5) % Lymphocytes # 0.9 L (1.0-4.8) k/uL Eosinophils # 2.0 H (0-0.7) k/uL Sodium 125 L (137-145) mmol/L Chloride 86 L (98-107) mmol/L BUN 48 H (9-20) mg/dL Creatinine 11.37 H* (0.66-1.25) mg/dL Glucose 107 H (74-99) mg/dL Calcium 7.8 L (8.4-10.2) mg/dL Total Protein 5.3 L (6.3-8.2) g/dL Albumin 3.1 L (3.5-5.0) g/dL Procalcitonin 0.74 H (0.02-0.09) ng/mL Assessment and Plan Assessment: Biopsy-proven, idiopathic pulmonary fibrosis, October 2021. Recent two-vessel bypass grafting, October 2021. End-stage renal disease. Hyponatremia. Previous history of tobacco use, one pack a day, for 15 years. Plan: Plan dated 04/02/2022. Nothing from the pulmonary standpoint, to do, while the patient is in the hospital. The patient does need to follow up with a lung doctor once discharged. He will need a 6 minute walk distance, complete pulmonary function testing, and if not already done, a high resolution computed tomography scan. The patient will need to be followed longitudinally, to determine whether or not his disease progresses slowly, or more rapidly. I told him I be happy to see him here in town, we could go back to his foundry tender at the [facility] in [place]. His examination is consistent with interstitial lung disease. Plan dated 04/03/2022. The patient will need follow-up after discharge. I told him I be happy to see him. He'll need complete pulmonary function testing, a high-resolution computed tomography scan, and a 6 minute walk distance. In addition, I would like to review the pathology on the lung biopsy. We want to make sure that he actually has idiopathic pulmonary fibrosis. He is not particularly symptomatic at this time, especially when he is doing nothing. He does get short of breath with any activity. Time with Patient: Less than 30
[2022-04-03] MEDS ORDERED: TOLVAPTAN 15 MG 1/2 TABLET PO ONE (12:00)
--- NOTE | 2022-04-03 15:27 | P.PN ---
Subjective Progress Note Date: 04/03/22 Patient is a 56-year-old male with a known history of ESRD on peritoneal dialysis, autosomal dominant polycystic kidney disease, hypothyroidism, interstitial lung disease unclear history of smoking presents to ER with complaints of near syncopal episode at home. SBP was in the 80s when checked at home. Denies any complaints of chest pain. No loss of consciousness. No cough or sputum production. Denies any dysuria or hematuria. No fever no chills. Patient was seen at outside facility and was told he had hyponatremia. Patient was discharged home with dietary restrictions. Does have history of connected status post bypass graft. Chest x-ray showed there is evidence of of some congestive heart failure. There is probably underlying pulmonary fibrosis. EKG showed sinus rhythm with first-degree AV block. Laboratory data showed WBC 8.9 hemoglobin 9.6 and platelets 153 INR 0.9 Sodium 129 potassium 4.0 chloride 86 bicarb is 24 BUN 56 and creatinine 12.15 Blood sugar is 109 calcium 8.8 magnesium 1.7 total bilirubin 0.5 alk phos 100 03/30/2022 Patient is seen and evaluated in follow-up this morning and continued on peritoneal dialysis with nephrology following. Patient was given another 250ml bolus of NS with improvement in blood pressure although no improvement iin sodium as it remains 125 for the last three readings. Recommend follow up labs in the am with continued fluid restrictions. Patient reports cough with some phlegm production and was recently diagnosed with pneumonia at another hospital a few weeks back. Patient was sent home on oral abx and did not finish them yet. Chest xray not suggestive on pneumonia here. Patient is afebrile and on room air. Denies chest pain or palpitations. Encouraged oral intake and increased activity as tolerated. 03/31/2022 Patient is seen today and sodium is 127 now with nephrology following. Has given another fluid bolus. Magnesium is low today at 1.6 and being replaced. Recommend repeat labs. Continue with peritoneal dialysis and fluid restrictions. Will need to discuss with nephrology about discharge planning. Patient is afebrile and denies chest pain or shortness of breath. Reports occasional cough that has not changed. Encouraged increased activity as tolerated. 04/01/2022 Patient seen and evaluated today with nephrology following continues to be on peritoneal dialysis exchanges and has been maintained on midodrine for hypotension. Agent blood pressures slightly improved in the 1 teens systolic. Patient denies any shortness of breath or chest pains. Sodium only slightly improved to 127 and magnesium after replacement is 2.1. Cortisol level is 6 and urine osmolality was 197 with a urine random sodium of 65. Patient is voiding. Patient is being started on Cortef and will discuss further with nephrology about discharge planning in the next 24 hours 04/02/2022 Patient is seen and evaluated in follow-up this morning with nephrology following. Patient continues to report some cough with lung tightness and will add nebulizers as patient was recently told he had pneumonia although chest x- ray here not suggestive of pneumonia. Patient recently had a CABG at [facility] and had a biopsy at that point and was diagnosed with idiopathic pulmonary fibrosis. Patient has not followed up with a lung specialist. Will consult pulmonary and appreciate input and recommendations and discussed with the patient that he would likely need to follow-up outpatient for further testing and continuity of care. Patient is agreeable with this. Patient's sodium continues to be low at 126 and maintain on fluid restrictions and continues on peritoneal dialysis with nephrology following closely. Patient was started on Cortef along with midodrine and blood pressures have improved. We'll obtain a chest x-ray as well. [facility] will refer him outpatient to other resources. Patient is afebrile and there is no white count. Patient denies chest pain or palpitations. Patient denies nausea or vomiting and tolerating diet. 04/03/2022 Patient is seen in follow-up this morning being followed by nephrology and patient has been evaluated by pulmonary recommending outpatient follow-up with his recent diagnosis of idiopathic pulmonary fibrosis. Patient has been started on DuoNeb treatments and reports to feeling somewhat improved. Patient reports cough. Patient continues with hyponatremia with a sodium of 125 with nephrology following and is maintained on fluid restrictions along with peritoneal dialysis. Patient is being given a dose of Samsca today and recommended follow- up labs. Patient continues to ask if he has pneumonia and chest x-ray suggestive of pneumonitis and interstitial disease and this has been relayed to the patient. Patient's white count is 9.8, hemoglobin is 8.4 patient has remained afebrile. Patient's BNP yesterday was 19,300 and continues to be in volume overload. Patient isn't fluid restrictions and continues with peritoneal dialysis exchanges 4 times daily. Patient will need close outpatient follow-up with pulmonary, cardiology, endocrine, nephrology on discharge. Will follow-up with labs and evaluate sodium level with possible discharge in 24 hours. Review of systems: Constitutional: No reports of fatigue, fever, or chills Cardiovascular: No reports of chest pain or palpitations Respiratory: No reports of shortness of breath ,reports continued cough GI: No reports of nausea, vomiting, or diarrhea : No reports of dysuria or retention Neurovascular: No reports of weakness or numbness All medications have been reviewed PHYSICAL EXAMINATION: Patient is lying in the bed , no acute distress, awake alert and oriented.. HEENT: Normocephalic. Neck is supple. Pupils reactive. Nostrils clear. Oral cavity is moist. Neck reveals no JVD, carotid bruits, or thyromegaly. CHEST EXAMINATION: Trachea is central. Symmetrical expansion. Bibasilar diminished sounds. Minimal crackles. Lung garcia clear to auscultation and percussion. CARDIAC: Normal S1, S2 with no gallops. No murmurs ABDOMEN: Soft. Bowel sounds present. Nontender. No organomegaly. No abdominal bruits. Extremities: Bilateral trace edema. No clubbing or cyanosis Neurologically awake, alert, oriented x3 with well-coordinated movements. No focal deficits noted Skin: No rash or skin lesions. Psychiatric: Cooperative. Non-suicidal, Musculoskeletal: No joint swelling or deformity. Normal range of motion. Assessment: Near syncopal episode likely due to hypotension and volume depletion. Hyponatremia with sodium level 128 on admission ESRD on peritoneal dialysis hypomagnesemia, improved Autosomal dominant polycystic kidney disease History of coronary disease post CABG in October 2021 Anemia of chronic disease hemoglobin 9.6 Chronic CHF with mildly reduced systolic dysfunction. Ejection fraction 45 to 50%. Hypothyroidism Hypertension Interstitial lung disease and recent history of pneumonia, recent diagnosis of idiopathic pulmonary fibrosis with biopsy during CABG Prior history of smoking DVT prophylaxis Plan: Patient is being followed by nephrology and continues to have low sodium most likely a component of SIADH. Cortisol levels were low and started on Cortef and blood pressures have improved and is continued on midodrine as needed. Patient continues with peritoneal dialysis exchanges and continues to be in volume overload. Patient is on fluid restrictions. Patient continues to report some cough and was diagnosed with idiopathic pulmonary fibrosis during biopsy during his CABG earlier this year at [facility] and has not followed up with a automated logistics specialist. Pulmonary Dr. John evaluated the patient recommending outpatient follow-up and further evaluation in the outpatient setting. Chest x-ray was obtained showing diffuse interstitial changes mild cardiomegaly slight worsening in the peripheral airspace disease similar to slightly increased small effusions correlate for CHF with slight worsening of pulmonary edema versus atypical interstitial pneumonitis given his peripheral distribution. Patient is afebrile with no white count most likely secondary to his pulmonary fibrosis and pneumonitis. Commended continue with DuoNeb treatments. Sodium 125 today and given a dose of Samsca and nephrology recommending labs in the a.m. to monitor sodium levels with possible discharge in 24 hours. The impression and plan of care has been dictated by Tatyana Bianchi, Nurse Practitioner as directed. Dr. Antonio MD I have performed a history and examination and MDM of this patient, discussed the same with the dictator, and agree with the dictator's assessment and plan as written ,documented as a scribe. Based on total visit time, I have performed more than 50% of the visit. Objective - Vital Signs Vital signs: Vital Signs Temp 98.1 F 04/03/22 06:00 Pulse 83 04/03/22 07:53 Resp 18 04/03/22 06:00 BP 106/70 04/03/22 07:50 Pulse Ox 96 04/03/22 07:44 FiO2 Intake & Output 04/02/22 04/03/22 04/03/22 18:59 06:59 18:59 Intake Total 620 730 Output Total 0 Balance 620 730 Weight 83.915 kg Intake: Oral 620 730 Output: Urine 0 Other: Voiding Method CAPD CAPD # Voids 0 - Labs CBC & Chem 7: 04/03/22 09:46 04/03/22 09:46 Labs: Abnormal Lab Results - Last 24 Hours (Table) 04/02/22 Range/Units 11:18 Procalcitonin 0.74 H (0.02-0.09) ng/mL
[2022-04-03] MEDS: ATORVASTATIN 40 MG TAB PO SCH (20:43)
[2022-04-04] MEDS: DIALYSIS (PERIT 1.5%) 2,500 ML 37.5 G/2,500 ML BAG INTRAPERIT SCH ×2 (05:50→17:52)
[2022-04-04] MEDS: LEVOTHYROXINE 88 MCG TAB PO SCH (06:01)
[2022-04-04 06:39] LABS: African American GFR (CKD) 5 (>60 ml/min/1.73 sqM); Anion Gap 10 mmol/L; Blood Urea Nitrogen 48 mg/dL (9-20); Calcium 7.9 mg/dL (8.4-10.2); Carbon Dioxide 25 mmol/L (22-30); Chloride 90 mmol/L (98-107); Glucose 98 mg/dL (74-99); Non-African American GFR(CKD) 5 (>60 ml/min/1.73 sqM); Potassium 4.2 mmol/L (3.5-5.1); Sodium 125 mmol/L (137-145)
[2022-04-04] MEDS: IPRATROPIUM-ALBUTEROL 3 ML NEB INHALATION SCH ×4 (07:56→19:39)
[2022-04-04] MEDS: carvediloL 12.5 MG TAB PO SCH ×2 (08:41→17:52)
[2022-04-04] MEDS: ASPIRIN 81 MG PO SCH (08:41)
[2022-04-04] MEDS: GENTAMICIN 0.1% CREAM 15 GM TUBE TOPICAL SCH ×3 (08:41→21:07)
[2022-04-04] MEDS: MIDODRINE 5 MG TAB PO SCH ×3 (08:42→17:04)
[2022-04-04] MEDS: CINACALCET 30 MG TAB PO SCH (08:42)
[2022-04-04] MEDS: HYDROCORTISONE 10 MG TAB PO SCH ×2 (08:42→21:07)
--- NOTE | 2022-04-04 09:54 | P.PN ---
Subjective Patient is seen in follow-up for end-stage renal disease. He is maintained on peritoneal dialysis. No active complaints at this time. No vomiting or diarrhea. Oral intake is fair. Sodium level stable at 125 today. Blood pressure stable. Patient has no active complaints. Vital signs are stable. General: Awake. No acute distress. HEENT: Head exam is unremarkable. LUNGS: Breath sounds decreased. HEART: Rate and Rhythm are regular. ABDOMEN: Soft, no distention. EXTREMITITES: No edema. Objective - Vital Signs Vital signs: Vital Signs Temp 98.4 F 04/04/22 06:00 Pulse 88 04/04/22 08:12 Resp 16 04/04/22 06:00 BP 126/80 04/04/22 06:00 Pulse Ox 94 L 04/04/22 06:00 FiO2 Intake & Output 04/03/22 04/04/22 04/04/22 18:59 06:59 18:59 Intake Total 1301 720 Balance 1301 720 Intake: Intake, IV Titration 500 Amount Sodium Chloride 0.9% 500 500 ml 500 ml @ 999 mls/hr IV .Q31M ONE Rx#:[id number] Oral 801 720 Other: Voiding Method CAPD CAPD - Labs CBC & Chem 7: 04/03/22 09:46 04/04/22 05:46 Labs: Abnormal Lab Results - Last 24 Hours (Table) 04/03/22 04/03/22 04/04/22 Range/Units 09:46 09:46 05:46 RBC 2.46 L (4.30-5.90) m/uL Hgb 8.4 L (13.0-17.5) gm/dL Hct 24.8 L (39.0-53.0) % MCV 101.0 H (80.0-100.0) fL RDW 16.2 H (11.5-15.5) % Lymphocytes # 0.9 L (1.0-4.8) k/uL Eosinophils # 2.0 H (0-0.7) k/uL Sodium 125 L 125 L (137-145) mmol/L Chloride 86 L 90 L (98-107) mmol/L BUN 48 H 48 H (9-20) mg/dL Creatinine 11.37 H* 10.96 H* (0.66-1.25) mg/dL Glucose 107 H (74-99) mg/dL Calcium 7.8 L 7.9 L (8.4-10.2) mg/dL Total Protein 5.3 L (6.3-8.2) g/dL Albumin 3.1 L (3.5-5.0) g/dL Assessment and Plan Plan: Assessment: 1. End-stage renal disease maintained on peritoneal dialysis. 2. Hyponatremia secondary to chronic kidney disease. now a little hypervolemic. Patient is not on any thiazide diuretics. Denies any history of malignancy. Possible component of SIADH from recent pneumonia. TSH low. Cortisol level 6 which is on the lower side. Urine sodium 65 and urine osmolality 197. also receive Samsca on 04/03/2022. 3. Chronic disease mineral bone disease maintained on Sensipar. 4. Recent pneumonia. Currently afebrile and white count normal. 5. Anemia of chronic kidney disease. Iron replete. On Aranesp. 6. Near syncope. 7. Hypomagnesemia from poor intake. Replaced. Improved. Plan: Maintain PD exchanges - change to alternating 1.5 and 2.5% solution. Maintain fluid restriction. Encourage protein intake. Status post fluid boluses this admission without any improvement in hyponatremia. Maintain Cortef - decrease dose as sodium did not improve and patient states he develops swelling from steroids. Patient will need to follow-up with endocrinology outpatient for further workup for adrenal insufficiency. Maintain midodrine 5 mg 3 times daily. Hold for systolic blood pressure greater than 115. Follow-up PTH related peptide. Patient is advised to follow up with his program aide group work within 1 week.
[2022-04-04] MEDS: DIALYSIS (PERIT 2.5%) 2,500 ML 62.5 G/2,500 ML BAG INTRAPERIT SCH ×2 (12:17→23:15)
[2022-04-04] MEDS: MAGNESIUM SULFATE-D5W PMX 1 GM in DEXTROSE/WATER 1 100ML.BAG IVPB SCH ×2 (13:30→15:07)
--- NOTE | 2022-04-04 14:05 | P.PN ---
Subjective Progress Note Date: 04/04/22 Principal diagnosis: Idiopathic pulmonary fibrosis. Pulmonary consult dated 04/02/2022. 56-year-old male who was initially evaluated on March 28, in the ER, for near syncope. The patient apparently became very lightheaded, and came into the evaluation, via EMS for evaluation. The patient does have a history of end- stage renal disease. Also, the patient was seen at an outside facility for a low sodium. I was asked to see the patient, because apparently back in October when he had open heart surgery, two-vessel bypass, a left lung biopsy was done, and he was told that he had idiopathic pulmonary fibrosis. Currently, he's on room air. Is not receiving any IV fluids. The patient apparently has seen a lung doctor in the past, not recently, and maybe one at the [facility] [place]. The patient states that when he exerts himself, such as on a treadmill, his saturations drop. He did smoke a pack a day for 15 years. He does not smoke currently. I told the patient that he doesn't need to see a loading unit operator in the future, for periodic pulmonary function testing, high resolution CT scans, 6 minute walk distances, examinations, etc. His most recent lab work shows a sodium 126, potassium 3.8, chloride 87, CO2 27, anion gap 12, BUN 48, and creatinine 11.22. His calcium is 8. His chest x-ray showed diffuse interstitial changes, mild cardiomegaly, and peripheral airspace disease. Progress note dated 04/03/2022. 56-year-old male that I saw on consultation yesterday. He was initially evaluated for syncope/near-syncope in the emergency room. It turns out that he recently had a lung biopsy, when he had a two-vessel bypass surgery, which revealed evidence of idiopathic pulmonary fibrosis. I told him that he would have to see me in the office, as he will need complete pulmonary function testing, high resolution computed tomography scan, and 6 minute walk distance. We also talked to the various medications which might be available to him, to control his disease. White count 9.8, hemoglobin 8.4, hematocrit 24.8, and platelet count 262,000. Sodium 125, potassium 3.6, chloride 86, CO2 28, BUN 48, creatinine 11.4. Pro-calcitonin level is 0.74. N-terminal proBNP is 19,300. Progress note dated 04/04/2022. 56-year-old male that I saw on consultation 2 days ago, for interstitial lung disease/pulmonary fibrosis. The patient apparently had a two-vessel bypass surgery in October of this year, at which time they did a lung biopsy. Apparently was done at the [facility] [place]. The patient will follow with me in the office after discharge. He was admitted with a diagnosis of syncope/near syncope. Today's labs include a sodium 125, potassium 4.2, chlorides 90, CO2 25, BUN 48, and creatinine 10.96. Objective - Vital Signs Vital signs: Vital Signs Temp 98.4 F 04/04/22 12:20 Pulse 88 04/04/22 12:20 Resp 18 04/04/22 12:20 BP 123/73 04/04/22 12:20 Pulse Ox 92 L 04/04/22 12:20 FiO2 Intake & Output 04/03/22 04/04/22 04/04/22 18:59 06:59 18:59 Intake Total 1301 720 Balance 1301 720 Intake: Intake, IV Titration 500 Amount Sodium Chloride 0.9% 500 500 ml 500 ml @ 999 mls/hr IV .Q31M ONE Rx#:[id number] Oral 801 720 Other: Voiding Method CAPD CAPD CAPD - Exam No acute distress, oriented 3. No respiratory distress, or conversational dyspnea. Currently on room air. HEENT examination is grossly unremarkable. Neck supple. Full range of motion. No adenopathy thyromegaly or neck vein distention. Cardiovascular examination reveals regular rhythm rate. S1-S2 normal. No S3 or S4. No discernible murmur noted. Heart rate 80 bpm. Lungs reveal bibasilar Velcro crackles. Breath sounds equal bilaterally. He is not restricted in his breathing. No wheezes or rhonchi. Room air saturation 94 %. Abdomen soft bowel sounds are heard. No masses or tenderness. Extremities are intact. No cyanosis clubbing or edema. Skin is without rash or lesion. Neurologic examination is brief but nonfocal. - Labs CBC & Chem 7: 04/03/22 09:46 04/04/22 05:46 Labs: Abnormal Lab Results - Last 24 Hours (Table) 04/04/22 Range/Units 05:46 Sodium 125 L (137-145) mmol/L Chloride 90 L (98-107) mmol/L BUN 48 H (9-20) mg/dL Creatinine 10.96 H* (0.66-1.25) mg/dL Calcium 7.9 L (8.4-10.2) mg/dL Assessment and Plan Assessment: Biopsy-proven, idiopathic pulmonary fibrosis, October 2021. Recent two-vessel bypass grafting, October 2021. End-stage renal disease. Hyponatremia. Previous history of tobacco use, one pack a day, for 15 years. Plan: Plan dated 04/02/2022. Nothing from the pulmonary standpoint, to do, while the patient is in the hospital. The patient does need to follow up with a lung doctor once disch arged. He will need a 6 minute walk distance, complete pulmonary function testing, and if not already done, a high resolution computed tomography scan. The patient will need to be followed longitudinally, to determine whether or not his disease progresses slowly, or more rapidly. I told him I be happy to see him here in town, we could go back to his loading unit operator at [facility] [place]. His examination is consistent with interstitial lung disease. Plan dated 04/03/2022. The patient will need follow-up after discharge. I told him I be happy to see him. He'll need complete pulmonary function testing, a high-resolution computed tomography scan, and a 6 minute walk distance. In addition, I would like to review the pathology on the lung biopsy. We want to make sure that he actually has idiopathic pulmonary fibrosis. He is not particularly symptomatic at this time, especially when he is doing nothing. He does get short of breath with any activity. Plan dated 04/04/2022. The patient will follow-up with me after discharge. He'll need a high- resolution computed tomography scan, 6 minute walk distance, and complete pulmonary function testing. Additional recommendations and suggestions are forthcoming. In addition, I told him that I would like to see his actual pathology reports. He apparently had a biopsy done at the [facility] in [place]. The patient is being considered for possible discharge. No additional recommendations are made. Prognosis is guarded. Time with Patient: Less than 30
[2022-04-04] MEDS: SODIUM CHLORIDE TAB 1 GM TAB PO SCH ×2 (14:14→21:06)
--- NOTE | 2022-04-04 15:40 | P.PN ---
Subjective Progress Note Date: 04/04/22 Patient is a 56-year-old male with a known history of ESRD on peritoneal dialysis, autosomal dominant polycystic kidney disease, hypothyroidism, interstitial lung disease unclear history of smoking presents to ER with complaints of near syncopal episode at home. SBP was in the 80s when checked at home. Denies any complaints of chest pain. No loss of consciousness. No cough or sputum production. Denies any dysuria or hematuria. No fever no chills. Patient was seen at outside facility and was told he had hyponatremia. Patient was discharged home with dietary restrictions. Does have history of connected status post bypass graft. Chest x-ray showed there is evidence of of some congestive heart failure. There is probably underlying pulmonary fibrosis. EKG showed sinus rhythm with first-degree AV block. Laboratory data showed WBC 8.9 hemoglobin 9.6 and platelets 153 INR 0.9 Sodium 129 potassium 4.0 chloride 86 bicarb is 24 BUN 56 and creatinine 12.15 Blood sugar is 109 calcium 8.8 magnesium 1.7 total bilirubin 0.5 alk phos 100 03/30/2022 Patient is seen and evaluated in follow-up this morning and continued on peritoneal dialysis with nephrology following. Patient was given another 250ml bolus of NS with improvement in blood pressure although no improvement iin sodium as it remains 125 for the last three readings. Recommend follow up labs in the am with continued fluid restrictions. Patient reports cough with some phlegm production and was recently diagnosed with pneumonia at another hospital a few weeks back. Patient was sent home on oral abx and did not finish them yet. Chest xray not suggestive on pneumonia here. Patient is afebrile and on room air. Denies chest pain or palpitations. Encouraged oral intake and increased activity as tolerated. 03/31/2022 Patient is seen today and sodium is 127 now with nephrology following. Has given another fluid bolus. Magnesium is low today at 1.6 and being replaced. Recommend repeat labs. Continue with peritoneal dialysis and fluid restrictions. Will need to discuss with nephrology about discharge planning. Patient is afebrile and denies chest pain or shortness of breath. Reports occasional cough that has not changed. Encouraged increased activity as tolerated. 04/01/2022 Patient seen and evaluated today with nephrology following continues to be on peritoneal dialysis exchanges and has been maintained on midodrine for hypotension. Agent blood pressures slightly improved in the 1 teens systolic. Patient denies any shortness of breath or chest pains. Sodium only slightly improved to 127 and magnesium after replacement is 2.1. Cortisol level is 6 and urine osmolality was 197 with a urine random sodium of 65. Patient is voiding. Patient is being started on Cortef and will discuss further with nephrology a bout discharge planning in the next 24 hours 04/02/2022 Patient is seen and evaluated in follow-up this morning with nephrology following. Patient continues to report some cough with lung tightness and will add nebulizers as patient was recently told he had pneumonia although chest x- ray here not suggestive of pneumonia. Patient recently had a CABG at [facility] and had a biopsy at that point and was diagnosed with idiopathic pulmonary fibrosis. Patient has not followed up with a lung specialist. Will consult pulmonary and appreciate input and recommendations and discussed with the patient that he would likely need to follow-up outpatient for further testing and continuity of care. Patient is agreeable with this. Patient's sodium continues to be low at 126 and maintain on fluid restrictions and continues on peritoneal dialysis with nephrology following closely. Patient was started on Cortef along with midodrine and blood pressures have improved. We'll obtain a chest x-ray as well. [facility] refer him outpatient to other resources. Patient is afebrile and there is no white count. Patient denies chest pain or palpitations. Patient denies nausea or vomiting and tolerating diet. 04/03/2022 Patient is seen in follow-up this morning being followed by nephrology and patient has been evaluated by pulmonary recommending outpatient follow-up with his recent diagnosis of idiopathic pulmonary fibrosis. Patient has been started on DuoNeb treatments and reports to feeling somewhat improved. Patient reports cough. Patient continues with hyponatremia with a sodium of 125 with nephrology following and is maintained on fluid restrictions along with peritoneal dialysis. Patient is being given a dose of Samsca today and recommended follow- up labs. Patient continues to ask if he has pneumonia and chest x-ray suggestive of pneumonitis and interstitial disease and this has been relayed to the patient. Patient's white count is 9.8, hemoglobin is 8.4 patient has remained afebrile. Patient's BNP yesterday was 19,300 and continues to be in volume overload. Patient isn't fluid restrictions and continues with peritoneal dialysis exchanges 4 times daily. Patient will need close outpatient follow-up with pulmonary, cardiology, endocrine, nephrology on discharge. Will follow-up with labs and evaluate sodium level with possible discharge in 24 hours. 04/04/2022 Patient is evaluated on medical floor today he has been cleared by pulmonary for discharge and outpatient follow up. Patient is concerned with his sodium level of 125. Discussed with nephrology and discharge is held. Patient is started on sodium chloride tablets BID and will repeat sodium level in the AM. Dialysate concentration has also been adjusted. Otherwise no acute events overnight. He continues on 1500 CC fluid restriction. HGB 8.4, potassium 4.2, BUN 48 creatinine 10.96, magnesium 1.7. He received 2 bags of IV magnesium today. Review of systems: Constitutional: No reports of fatigue, fever, or chills Cardiovascular: No reports of chest pain or palpitations Respiratory: No reports of shortness of breath ,reports continued cough congested. GI: No reports of nausea, vomiting, or diarrhea : No reports of dysuria or retention Neurovascular: No reports of weakness or numbness All medications have been reviewed PHYSICAL EXAMINATION: Patient is lying in the bed , no acute distress, awake alert and oriented.. HEENT: Normocephalic. Neck is supple. Pupils reactive. Nostrils clear. Oral cavity is moist. Neck reveals no JVD, carotid bruits, or thyromegaly. CHEST EXAMINATION: Trachea is central. Symmetrical expansion. Bibasilar diminished sounds. Minimal crackles. Lung garcia clear to auscultation and percussion. CARDIAC: Normal S1, S2 with no gallops. No murmurs ABDOMEN: Soft. Bowel sounds present. Nontender. No organomegaly. No abdominal bruits. Extremities: Bilateral trace edema. No clubbing or cyanosis Neurologically awake, alert, oriented x3 with well-coordinated movements. No focal deficits noted Skin: No rash or skin lesions. Psychiatric: Cooperative. Non-suicidal, Musculoskeletal: No joint swelling or deformity. Normal range of motion. Assessment: Near syncopal episode likely due to hypotension and volume depletion. Hyponatremia with sodium level 128 on admission ESRD on peritoneal dialysis hypomagnesemia, improved Autosomal dominant polycystic kidney disease History of coronary disease post CABG in October 2021 Anemia of chronic disease hemoglobin 8.4 Chronic CHF with mildly reduced systolic dysfunction. Ejection fraction 45 to 50%. Hypothyroidism Hypertension Interstitial lung disease and recent history of pneumonia, recent diagnosis of idiopathic pulmonary fibrosis with biopsy during CABG Prior history of smoking DVT prophylaxis Plan: Patient is being followed by nephrology and continues to have low sodium most likely a component of SIADH. Cortisol levels were low and started on Cortef and blood pressures have improved and is continued on midodrine as needed. Patient continues with peritoneal dialysis exchanges and continues to be in volume overload. Patient is on fluid restrictions. Patient continues to report some cough and was diagnosed with idiopathic pulmonary fibrosis during biopsy during his CABG earlier this year at [facility] and has not followed up with a integrity specialist. Pulmonary Dr. John evaluated the pa yasmeen recommending outpatient follow-up and further evaluation in the outpatient setting. Chest x-ray was obtained showing diffuse interstitial changes mild cardiomegaly slight worsening in the peripheral airspace disease similar to slightly increased small effusions correlate for CHF with slight worsening of pulmonary edema versus atypical interstitial pneumonitis given his peripheral distribution. Patient is afebrile with no white count most likely secondary to his pulmonary fibrosis and pneumonitis. Commended continue with DuoNeb treatments. Sodium 125 today and patient has been started on sodium bicarbonate tablets BID and will repeat labs in the morning. He is instructed to get lung biopsy reports and bring to follow up with pulmonary. Possible DC in the next 24 hours The impression and plan of care has been dictated by Rita Russell, Nurse Practitioner as directed. Dr. Antonio MD I have performed a history and physical examination and medical decision making of this patient, discussed the same with the dictator, and agree with the dictators assessment and plan as written, documented as a scribe. Based on total visit time, I have performed more than 50% of this visit. Objective - Vital Signs Vital signs: Vital Signs Temp 98.4 F 04/04/22 12:20 Pulse 88 04/04/22 12:20 Resp 18 04/04/22 12:20 BP 123/73 04/04/22 12:20 Pulse Ox 92 L 04/04/22 12:20 FiO2 Intake & Output 04/03/22 04/04/22 04/04/22 18:59 06:59 18:59 Intake Total 1301 720 Balance 1301 720 Intake: Intake, IV Titration 500 Amount Sodium Chloride 0.9% 500 500 ml 500 ml @ 999 mls/hr IV .Q31M ONE Rx#:[id number] Oral 801 720 Other: Voiding Method CAPD CAPD CAPD - Labs CBC & Chem 7: 04/03/22 09:46 04/04/22 05:46 Labs: Abnormal Lab Results - Last 24 Hours (Table) 04/04/22 Range/Units 05:46 Sodium 125 L (137-145) mmol/L Chloride 90 L (98-107) mmol/L BUN 48 H (9-20) mg/dL Creatinine 10.96 H* (0.66-1.25) mg/dL Calcium 7.9 L (8.4-10.2) mg/dL
[2022-04-04 19:02] VITALS: RESP 18
[2022-04-04] MEDS: ATORVASTATIN 40 MG TAB PO SCH (21:06)
[2022-04-05] MEDS: CALCIUM CARBONATE 500 MG CHEWABLE PO PRN ×2 (03:10→11:10)
[2022-04-05] MEDS: DIALYSIS (PERIT 1.5%) 2,500 ML 37.5 G/2,500 ML BAG INTRAPERIT SCH (05:36)
[2022-04-05] MEDS: LEVOTHYROXINE 88 MCG TAB PO SCH (05:55)
[2022-04-05] MEDS: IPRATROPIUM-ALBUTEROL 3 ML NEB INHALATION SCH ×2 (07:52→11:12)
[2022-04-05] MEDS: carvediloL 12.5 MG TAB PO SCH (07:56)
[2022-04-05] MEDS: ASPIRIN 81 MG PO SCH (07:56)
[2022-04-05] MEDS: SODIUM CHLORIDE TAB 1 GM TAB PO SCH (07:57)
[2022-04-05] MEDS: CINACALCET 30 MG TAB PO SCH (07:57)
[2022-04-05] MEDS: MIDODRINE 5 MG TAB PO SCH (07:58)
[2022-04-05] MEDS: HYDROCORTISONE 10 MG TAB PO SCH (07:58)
[2022-04-05] MEDS: GENTAMICIN 0.1% CREAM 15 GM TUBE TOPICAL SCH (07:59)
[2022-04-05 09:43] LABS: Magnesium 2.3 mg/dL (1.5-2.4)
[2022-04-05 09:50] LABS: African American GFR (CKD) 5.1 (60.0-200.0); Anion Gap 14.3 mmol/L (10.00-18.00); BUN/Creat Ratio 3.68 Ratio (12.00-20.00); Calcium 8.6 mg/dL (8.7-10.3); Carbon Dioxide 25.7 mmol/L (20.0-27.5); Non-African American GFR(CKD) 4.4 (60.0-200.0); Potassium 4.3 mmol/L (3.5-5.5)
[2022-04-05] MEDS ORDERED: guaiFENesin SYRUP 100MG/5ML 200 MG/10 ML CUP PO PRN (10:42)
[2022-04-05] MEDS ORDERED: BENZOCAINE/MENTHOL LOZENG 1 EACH LOZENGE MUCOUS MEM PRN (10:42)
--- NOTE | 2022-04-05 10:51 | P.PN ---
Subjective Patient is seen in follow-up for end-stage renal disease. He is maintained on peritoneal dialysis. No active complaints at this time. No vomiting or diarrhea. Oral intake is fair. Sodium level improved. Blood pressure stable. Vital signs are stable. General: Awake. No acute distress. HEENT: Head exam is unremarkable. LUNGS: Breath sounds decreased. HEART: Rate and Rhythm are regular. ABDOMEN: Soft, no distention. EXTREMITITES: No edema. Objective - Vital Signs Vital signs: Vital Signs Temp 97.7 F 04/05/22 06:14 Pulse 96 04/05/22 08:06 Resp 18 04/05/22 06:00 BP 139/83 04/05/22 06:00 Pulse Ox 97 04/05/22 06:00 FiO2 Intake & Output 04/04/22 04/05/22 04/05/22 18:59 06:59 18:59 Intake Total 200 1160 Balance 200 1160 Intake: Intake, IV Titration 200 Amount Magnesium Sulfate-D5w Pmx 200 1 gm In Dextrose/Water 1 100ml.bag @ 100 mls/hr IVPB Q1H RADHA Rx#: [id number] Oral 1160 Other: Voiding Method CAPD CAPD # Voids 0 0 - Labs CBC & Chem 7: 04/03/22 09:46 04/05/22 05:15 Labs: Abnormal Lab Results - Last 24 Hours (Table) 04/05/22 Range/Units 05:15 Sodium 128 L (135-145) mmol/L Chloride 88 L (96-109) mmol/L BUN 42.0 H (9.0-27.0) mg/dL Creatinine 11.4 H* (0.6-1.5) mg/dL Est GFR (CKD-EPI)AfAm 5.1 L (60.0-200.0) Est GFR (CKD-EPI)NonAf 4.4 L (60.0-200.0) BUN/Creatinine Ratio 3.68 L (12.00-20.00) Ratio Glucose 116 H (70-110) mg/dL Calcium 8.6 L (8.7-10.3) mg/dL Assessment and Plan Plan: Assessment: 1. End-stage renal disease maintained on peritoneal dialysis. 2. Hyponatremia secondary to chronic kidney disease. Patient is not on any thiazide diuretics. Denies any history of malignancy. Possible component of SIADH from recent pneumonia. TSH low. Cortisol level 6 which is on the lower side. Urine sodium 65 and urine osmolality 197. also receive Samsca on 04/03/2022. 3. Chronic disease mineral bone disease maintained on Sensipar. 4. Recent pneumonia. Currently afebrile and white count normal. 5. Anemia of chronic kidney disease. Iron replete. On Aranesp. 6. Near syncope. resolved. Blood pressure well controlled. 7. Hypomagnesemia from poor intake. Replaced. Improved. Plan: Maintain PD exchanges - alternating 1.5 and 2.5% solution. Maintain fluid restriction. Encourage protein intake. maintain sodium chloride tabs. Status post fluid boluses this admission without any improvement in hyponatremia. Maintain Cortef - decreased dose as sodium did not improve and patient states he develops swelling from steroids. Patient will need to follow-up with endocrinology outpatient for further workup for adrenal insufficiency. Maintain midodrine 5 mg 3 times daily. Hold for systolic blood pressure greater than 115. Follow-up PTH related peptide. Patient is advised to follow up with his husbandry technician within 1 week.
[2022-04-05] MEDS: DIALYSIS (PERIT 2.5%) 2,500 ML 62.5 G/2,500 ML BAG INTRAPERIT SCH (11:20)
[2022-04-05 11:53] VITALS: BP 123/78; PULSE 98
[2022-04-05 11:55] VITALS: TEMP 97.6
[2022-04-05] MEDS ORDERED: CALCIUM CARBONATE 500 MG CHEWABLE PO ONE (12:23)
--- NOTE | 2022-04-05 12:33 | P.PN ---
Subjective Progress Note Date: 04/05/22 Principal diagnosis: Idiopathic pulmonary fibrosis. Pulmonary consult dated 04/02/2022. 56-year-old male who was initially evaluated on March 28, in the ER, for near syncope. The patient apparently became very lightheaded, and came into the evaluation, via EMS for evaluation. The patient does have a history of end- stage renal disease. Also, the patient was seen at an outside facility for a low sodium. I was asked to see the patient, because apparently back in October when he had open heart surgery, two-vessel bypass, a left lung biopsy was done, and he was told that he had idiopathic pulmonary fibrosis. Currently, he's on room air. Is not receiving any IV fluids. The patient apparently has seen a lung doctor in the past, not recently, and maybe one at the [facility] [place]. The patient states that when he exerts himself, such as on a treadmill, his saturations drop. He did smoke a pack a day for 15 years. He does not smoke currently. I told the patient that he doesn't need to see a senior geotechnical engineer in the future, for periodic pulmonary function testing, high resolution CT scans, 6 minute walk distances, examinations, etc. His most recent lab work shows a sodium 126, potassium 3.8, chloride 87, CO2 27, anion gap 12, BUN 48, and creatinine 11.22. His calcium is 8. His chest x-ray showed diffuse interstitial changes, mild cardiomegaly, and peripheral airspace disease. Progress note dated 04/03/2022. 56-year-old male that I saw on consultation yesterday. He was initially evaluated for syncope/near-syncope in the emergency room. It turns out that he recently had a lung biopsy, when he had a two-vessel bypass surgery, which revealed evidence of idiopathic pulmonary fibrosis. I told him that he would have to see me in the office, as he will need complete pulmonary function testing, high resolution computed tomography scan, and 6 minute walk distance. We also talked to the various medications which might be available to him, to control his disease. White count 9.8, hemoglobin 8.4, hematocrit 24.8, and platelet count 262,000. Sodium 125, potassium 3.6, chloride 86, CO2 28, BUN 48, creatinine 11.4. Pro-calcitonin level is 0.74. N-terminal proBNP is 19,300. Progress note dated 04/04/2022. 56-year-old male that I saw on consultation 2 days ago, for interstitial lung disease/pulmonary fibrosis. The patient apparently had a two-vessel bypass surgery in October of this year, at which time they did a lung biopsy. Apparently was done at the [facility] [place]. The patient will follow with me in the office after discharge. He was admitted with a diagnosis of syncope/near syncope. Today's labs include a sodium 125, potassium 4.2, chlorides 90, CO2 25, BUN 48, and creatinine 10.96. Progress note dated 04/05/2022. 56-year-old male who was recently diagnosed as having an essential lung disease/pulmonary fibrosis. When he had his two-vessel bypass done at the [facility] in [place], he also had a biopsy of the lung. Pathology apparently showed interstitial lung disease/pulmonary fibrosis. The patient will need follow-up, with a senior geotechnical engineer. I told him I be happy to see him, he can choose somebody on his own. Currently, was admitted with a diagnosis of syncope/near syncope. The patient has had ongoing hyponatremia. He does suffer from renal failure as well. Labs today show a sodium 128, potassium 4.3, chloride 88, CO2 26, BUN 42, creatinine 11.4. Objective - Vital Signs Vital signs: Vital Signs Temp 97.6 F 04/05/22 11:52 Pulse 98 04/05/22 11:52 Resp 18 04/05/22 11:52 BP 123/78 04/05/22 11:52 Pulse Ox 96 04/05/22 11:52 FiO2 Intake & Output 04/04/22 04/05/22 04/05/22 18:59 06:59 18:59 Intake Total 200 1160 Balance 200 1160 Intake: Intake, IV Titration 200 Amount Magnesium Sulfate-D5w Pmx 200 1 gm In Dextrose/Water 1 100ml.bag @ 100 mls/hr IVPB Q1H RADHA Rx#: [id number] Oral 1160 Other: Voiding Method CAPD CAPD CAPD # Voids 0 0 - Exam No acute distress, oriented 3. No respiratory distress, or conversational dyspnea. Currently on room air. HEENT examination is grossly unremarkable. Neck supple. Full range of motion. No adenopathy thyromegaly or neck vein distention. Cardiovascular examination reveals regular rhythm rate. S1-S2 normal. No S3 or S4. No discernible murmur noted. Heart rate 98 bpm. Lungs reveal bibasilar Velcro crackles. Breath sounds equal bilaterally. He is not restricted in his breathing. No wheezes or rhonchi. Room air saturation 96 %. Abdomen soft bowel sounds are heard. No masses or tenderness. Extremities are intact. No cyanosis clubbing or edema. Skin is without rash or lesion. Neurologic examination is brief but nonfocal. - Labs CBC & Chem 7: 04/03/22 09:46 04/05/22 05:15 Labs: Abnormal Lab Results - Last 24 Hours (Table) 04/05/22 Range/Units 05:15 Sodium 128 L (135-145) mmol/L Chloride 88 L (96-109) mmol/L BUN 42.0 H (9.0-27.0) mg/dL Creatinine 11.4 H* (0.6-1.5) mg/dL Est GFR (CKD-EPI)AfAm 5.1 L (60.0-200.0) Est GFR (CKD-EPI)NonAf 4.4 L (60.0-200.0) BUN/Creatinine Ratio 3.68 L (12.00-20.00) Ratio Glucose 116 H (70-110) mg/dL Calcium 8.6 L (8.7-10.3) mg/dL Assessment and Plan Assessment: Biopsy-proven, idiopathic pulmonary fibrosis, October 2021. Recent two-vessel bypass grafting, October 2021. End-stage renal disease. Hyponatremia. Previous history of tobacco use, one pack a day, for 15 years. Plan: Plan dated 04/02/2022. Nothing from the pulmonary standpoint, to do, while the patient is in the hospital. The patient does need to follow up with a lung doctor once discharged. He will need a 6 minute walk distance, complete pulmonary function testing, and if not already done, a high resolution computed tomography scan. The patient will need to be followed longitudinally, to determine whether or not his disease progresses slowly, or more rapidly. I told him I be happy to see him here in town, we could go back to his senior geotechnical engineer at the [facility] in [place]. His examination is consistent with interstitial lung disease. Plan dated 04/03/2022. The patient will need follow-up after discharge. I told him I be happy to see him. He'll need complete pulmonary function testing, a high-resolution computed tomography scan, and a 6 minute walk distance. In addition, I would like to review the pathology on the lung biopsy. We want to make sure that he actually has idiopathic pulmonary fibrosis. He is not particularly symptomatic at this time, especially when he is doing nothing. He does get short of breath with any activity. Plan dated 04/04/2022. The patient will follow-up with me after discharge. He'll need a high- resolution computed tomography scan, 6 minute walk distance, and complete pulmonary function testing. Additional recommendations and suggestions are forthcoming. In addition, I told him that I would like to see his actual pathology reports. He apparently had a biopsy done at the [facility] in [place]. The patient is being considered for possible discharge. No additional recommendations are made. Prognosis is guarded. Plan dated 04/05/2022. The patient will follow up either with me, here in [facility], or with the senior geotechnical engineer that he saw in [place]. Either is acceptable. I did tell him that if he does come to see me, I would like to see the pathology reports on the lung biopsy that was done in October of this year. The patient's currently on room air. He only gets short of breath on exertion. Some of the shortness of breath may relate to fluid overload from the patient's history of renal failure. Additional recommendations and suggestions are forthcoming. Time with Patient: Less than 30
--- NOTE | 2022-04-06 21:37 | P.DS ---
Providers Date of admission: 03/28/22 20:37 Attending physician: Fabrizio Escalona Consults: 03/28/22 20:37 Consult Physician Routine Consulting Provider: Melissa Brunson Consult Reason/Comments: Syncope, hyponatremia, fluid overload Do you want consulting provider notified?: Yes 04/02/22 09:55 Consult Physician Urgent Consulting Provider: Chava John Consult Reason/Comments: cough, recent peumonia, IPF Do you want consulting provider notified?: Yes Primary care physician: Shayla Fonseca Hospital Course: Diagnosis Near syncopal episode likely due to hypotension and volume depletion. Hyponatremia with sodium level 128 on admission ESRD on peritoneal dialysis hypomagnesemia, improved Autosomal dominant polycystic kidney disease History of coronary disease post CABG in October 2021 Anemia of chronic disease hemoglobin 8.4 Chronic CHF with mildly reduced systolic dysfunction. Ejection fraction 45 to 50%. Hypothyroidism Hypertension Interstitial lung disease and recent history of pneumonia, recent diagnosis of idiopathic pulmonary fibrosis with biopsy during CABG Prior history of smoking Full Code Discharge disposition Patient is stable for discharge he has been cleared by nephrology. Patient to follow up with primary care in 1 to 2 days. Patient also to follow up with his power shovel operator helper. Continue with peritoneal dialysis patient recommended for alternating 1.5 and 2.5% solution. He has been started on sodium bicarbonate tablets 1 gm BID and his sodium has improved. He continues on 1500 cc fluid restriction. Patient is also discharge on midodrine 5 mg TID with parameters to hold for systolic blood pressure greater than 115. Hospital course Patient is a 56-year-old male with a known history of ESRD on peritoneal dialysis, autosomal dominant polycystic kidney disease, hypothyroidism, interstitial lung disease unclear history of smoking presents to ER with complaints of near syncopal episode at home. SBP was in the 80s when checked at home. Denies any complaints of chest pain. No loss of consciousness. No cough or sputum production. Denies any dysuria or hematuria. No fever no chills. Patient was seen at outside facility and was told he had hyponatremia. Patient was discharged home with dietary restrictions. Does have history of connected status post bypass graft. Chest x-ray showed there is evidence of of some congestive heart failure. There is probably underlying pulmonary fibrosis. EKG showed sinus rhythm with first-degree AV block. Laboratory data showed WBC 8.9 hemoglobin 9.6 and platelets 153 INR 0.9 Sodium 129 potassium 4.0 chloride 86 bicarb is 24 BUN 56 and creatinine 12.15 Blood sugar is 109 calcium 8.8 magnesium 1.7 total bilirubin 0.5 alk phos 100 Patient was admitted to the hospital and nephrology was consulted. He was also evaluated by pulmonary services for cough with sputum and recent diagnosis of pneumonia from outside facility. Patient is still on oral antibiotics from that outpatient. Imaging shows possible intersitital lung disease and pneumonitis and pulmonary recommended to follow with patient on discharge for pulmonary work up. Patient recently had a CABG at [facility] and had a biopsy at that point and was diagnosed with idiopathic pulmonary fibrosis. Patient has not followed up with a lung specialist. Patient to retrieve medical records from his lung biopsy he had previously and bring to follow up outpatient wit pulmonary. Patient continues to be in volume overload with sodium level around 126 to 125 without much improvement despite continuing peritoneal dialysis 4 times a day as well as fluid restriction. Patient had also received samsca. Sodium bicarbonate 1 gm BID was added and patients sodium then increased back up to 128. Patient was also found to have low morning cortisol level of 6 and was started on solucortef which was tapered down and he was discharged on solucortef 5 mg po bid. Blood pressure has improved 123/78 and heart rate 98, patient is afebrile and saturating 96% on room air. He will be discharge with follow up recommendations to see his power shovel operator helper, dairy nutrition consultant through the [place], recommending to see pulmonary and endocrinology for ongoing adrenal insufficiency work up. He is given scripts for repeat labs in 2 to 3 days. 04/05/2022 Patient is evaluated today resting in bed. He has some residual cough and is recommended to continue albuterol inhaler. He reports no shortness of breath no chest pain. His lungs are clear S1 S2 auscultated. Abdomen is soft and nontender. He continues with peritoneal dialysis. Sodium level today is 128. Patient will be discharged. Review of Systems Constitutional: Denied any fatigue denied any fever. Cardio vascular: denied any chest pain, palpitations Gastrointestinal: denied any nausea, vomiting, diarrhea Pulmonary: Denied any shortness of breath cough Neurologic denied any new focal deficits All inpatient medications were reviewed and appropriate changes in these medications as dictated in the interval history and assessment and plan. PHYSICAL EXAMINATION: GENERAL: The patient is alert and oriented x3, not in any acute distress. Well developed, well nourished. HEENT: Pupils are round and equally reacting to light. EOMI. No scleral icterus. No conjunctival pallor. Normocephalic, atraumatic. No pharyngeal erythema. No thyromegaly. CARDIOVASCULAR: S1 and S2 present. No murmurs, rubs, or gallops. PULMONARY: Chest is clear to auscultation, no wheezing or crackles. ABDOMEN: Soft, nontender, nondistended, normoactive bowel sounds. No palpable organomegaly. MUSCULOSKELETAL: No joint swelling or deformity. EXTREMITIES: No cyanosis, clubbing, or pedal edema. NEUROLOGICAL: Gross neurological examination did not reveal any focal deficits. SKIN: No rashes. Please see medication reconciliation for list of current medications. Thank you for allowing us participate in the care of this patient. Total time taken in discharge planning greater than 35 minutes The impression and plan of care has been dictated by Rita Russell Nurse Practitioner as directed. Dr. Antonio MD I have performed a history and physical examination and medical decision making of this patient, discussed the same with the dictator, and agree with the dictators assessment and plan as written, documented as a scribe. Based on total visit time, I have performed more than 50% of this visit. Patient Condition at Discharge: Fair Plan - Discharge Summary Discharge Rx Participant: No New Discharge Prescriptions: New Hydrocortisone [Cortef] 5 mg PO BID #60 tab Midodrine [ProAmatine] 5 mg PO AC-TID #90 tab Sodium Chloride Tab 1 gm PO BID #60 tablet Continue Cinacalcet HCl 30 mg PO DAILY Velphoro 500mg 1,000 mg PO TID-W/MEALS Magnesium Glycinate 100mg 100 mg PO BID Cristal-Aris 1 tab PO DAILY Albuterol Inhaler [Ventolin Hfa Inhaler] 2 puff INHALATION RT-QID PRN PRN Reason: Shortness Of Breath Aspirin EC [Ecotrin Low Dose] 81 mg PO DAILY Atorvastatin [Lipitor] 40 mg PO HS Azithromycin [Zithromax] See Taper PO DIRECTED Calcium Carbonate 1,500 mg PO BID Fluticasone Nasal [place] [Flonase Nasal [place]] 1 - 2 spray EA NOSTRIL BID PRN PRN Reason: Allergy Symptoms Gentamicin Sulfate [Gentamicin Sulfate 0.1% Oint.] 1 applic TOPICAL DAILY PRN PRN Reason: EXIT SITE Velphoro 500mg 500 mg PO BID PRN PRN Reason: WITH SNACKS (MAX 2 SNACKS) carvediloL [Coreg] 12.5 mg PO BID-W/MEALS Levothyroxine Sodium [Synthroid] 175 mcg PO DAILY Discharge Medication List Cinacalcet HCl 30 mg PO DAILY 05/14/20 [History] Gentamicin Sulfate [Gentamicin Sulfate 0.1% Oint.] 1 applic TOPICAL DAILY PRN 02/10/21 [History] Magnesium Glycinate 100mg 100 mg PO BID 02/10/21 [History] Velphoro 500mg 1,000 mg PO TID-W/MEALS 02/10/21 [History] Velphoro 500mg 500 mg PO BID PRN 02/10/21 [History] Albuterol Inhaler [Ventolin Hfa Inhaler] 2 puff INHALATION RT-QID PRN 03/28/22 [History] Aspirin EC [Ecotrin Low Dose] 81 mg PO DAILY 03/28/22 [History] Atorvastatin [Lipitor] 40 mg PO HS 03/28/22 [History] Azithromycin [Zithromax] See Taper PO DIRECTED 03/28/22 [History] Calcium Carbonate 1,500 mg PO BID 03/28/22 [History] Fluticasone Nas[place] [Flonase Nasal [place]] 1 - 2 spray EA NOSTRIL BID PRN 03/28/22 [History] Levothyroxine Sodium [Synthroid] 175 mcg PO DAILY 03/28/22 [History] Cristal-Aris 1 tab PO DAILY 03/28/22 [History] carvediloL [Coreg] 12.5 mg PO BID-W/MEALS 03/28/22 [History] Hydrocortisone [Cortef] 5 mg PO BID #60 tab 04/04/22 [Rx] Midodrine [ProAmatine] 5 mg PO AC-TID #90 tab 04/04/22 [Rx] Sodium Chloride Tab 1 gm PO BID #60 tablet 04/05/22 [Rx] Follow up Appointment(s)/Referral(s): Matt Jackson MD [REFERRING] - 1 Week (office closed, call Wednesday04/06/22 to make your appointment.) Shayla Fonseca DO [Primary Care Provider] - 1-2 days (office closed, call Wednesday04/06/22 to make your appointment.) Chava John DO [Doctor of Osteopathic Medicine] - 1 Week (Follow-up 1 week post discharge per Dr. John r/t Pulmonary Fibrosis. office closed, call Wednesday04/06/22 to make your appointment.) Ambulatory/Diagnostic Orders: Basic Metabolic Panel [LAB.AMB] Time Frame: 2 Days, Location: None Selected Magnesium [LAB.AMB] Time Frame: 2 Days, Location: None Selected Patient Instructions/Handouts: Hyponatremia (DC), Syncope (DC), Peritoneal Dialysis (GEN) Activity/Diet/Wound Care/Special Instructions: Activity Limited until follow-up Follow-up with your power shovel operator helper on discharge Follow-up with primary care provider on discharge Follow-up with dairy nutrition consultant out of [place] on discharge Recommend follow up with endocrine outpatient Follow-up with pulmonary as discussed and scheduled If you would like to follow up with cardiology in [facility] to see if they are accepting patients Recommend [facility]ology associates here in [facility] Continue fluid restriction 1500 ml per 24 hours Continue to eat diet high in protein Continue on sodium chloride tablets BID and follow up with your power shovel operator helper for further instructions Recommend to see endocrinology for ongoing work up regarding adrenal insufficiency Discharge Disposition: HOME SELF-CARE
== END 2022-04-05 12:37 | disposition home or self-care (01) | DRG 314 ==
LOC: EC 18:38 → 5NMEDONC 20:37
PROVIDERS: ADMIT Internal Medicine; ATTEND Internal Medicine
PROC: 3E1M39Z Irrigation of Peritoneal Cavity using Dialysate, Percutaneous Approach (ICD-10-PCS; principal; 2022-03-29)
DX: I95.9 Hypotension, unspecified (principal); N18.6 End stage renal disease; I13.2 Hypertensive heart and chronic kidney disease with heart failure and with stage 5 chronic kidney disease, or end stage renal disease; I50.22 Chronic systolic (congestive) heart failure; Q61.2 Polycystic kidney, adult type; E22.2 Syndrome of inappropriate secretion of antidiuretic hormone; Z20.822 Contact with and (suspected) exposure to COVID-19; J84.112 Idiopathic pulmonary fibrosis; I25.10 Atherosclerotic heart disease of native coronary artery without angina pectoris; R09.02 Hypoxemia; D63.1 Anemia in chronic kidney disease; E03.9 Hypothyroidism, unspecified; E83.42 Hypomagnesemia; E86.9 Volume depletion, unspecified; I44.0 Atrioventricular block, first degree; I48.91 Unspecified atrial fibrillation; E88.9 Metabolic disorder, unspecified; Z79.82 Long term (current) use of aspirin; Z79.890 Hormone replacement therapy; Z79.899 Other long term (current) drug therapy; Z87.01 Personal history of pneumonia (recurrent); Z87.891 Personal history of nicotine dependence; Z95.1 Presence of aortocoronary bypass graft; Z99.2 Dependence on renal dialysis
CPT/HCPCS: 36415; 71045; 71046; 80048; 80053; 82533; 82728; 83519; 83540; 83550; 83735; 83880; 83930; 83935; 84145; 84295; 84300; 84439; 84443; 85025; 85610; 85730; 93005; 94640; 94760; 96360; 96361; 99285

== ENCOUNTER → 2022-07-31 | Outpatient (CLI) | payer MEDICARE, OTHER ==
--- NOTE | 2022-07-31 13:39 | USB ---
Reason for Exam: Clinical finding. Technique: Method: Targeted. Findings: The retroareolar of both breasts was scanned. Bilateral ultrasound of the nipple and retroareolar regions of both breasts. There is a flame shaped hypoechoic region within the left retroareolar region measuring 1.6 x 0.9 x 1.3 cm without internal color flow. This is most consistent with gynecomastia. Overall Assessment: Benign, BI-RAD 2 Electronically signed and approved by: Miko Hector D.O.
--- NOTE | 2022-07-31 14:38 | MM ---
Reason for Exam: Clinical finding. Baseline mammogram. Indicated Problems: Nipple abnormality of the left side. Prior Study Comparison: Patient's first Mammogram. Tissue Density: Left: There are scattered fibroglandular densities. Analyzed By CAD. Overall Assessment: Incomplete: need additional imaging evaluation, BI-RAD 0 Management: Diagnostic Breast Ultrasound of the left breast. Electronically signed and approved by: Miko Hector D.O.
== END | disposition home or self-care (01) ==
LOC: RADMAMWWP 13:00
PROVIDERS: ATTEND Family Medicine
DX: N62 Hypertrophy of breast (principal)
CPT/HCPCS: 77066; 76642; G0279; 77062